=== PATIENT | male | born 1945 | race Caucasian/White ===

== ENCOUNTER → 2020-06-13 09:55 | Outpatient (BNVA) | payer MEDICARE, SELFPAY | PROVIDERS: PCP Internal Medicine Geriatric Medicine; Referring Provider Internal Medicine Geriatric Medicine; Visit Provider Internal Medicine Endocrinology, Diabetes & Metabolism | DX: E05.20 Thyrotoxicosis with toxic multinodular goiter without thyrotoxic crisis or storm (principal); Z79.899 Other long term (current) drug therapy | CPT/HCPCS: 99214 ==

== ENCOUNTER 2020-06-15 09:09 | Outpatient (RCR) | payer MEDICARE, SELFPAY | END 2020-08-18 08:10 | disposition home or self-care (01) | LOC: HO.WCC 09:09 | PROVIDERS: PCP Internal Medicine Geriatric Medicine; Visit Provider Surgery | DX: E11.622 Type 2 diabetes mellitus with other skin ulcer (principal); L97.822 Non-pressure chronic ulcer of other part of left lower leg with fat layer exposed; E11.51 Type 2 diabetes mellitus with diabetic peripheral angiopathy without gangrene; Z79.84 Long term (current) use of oral hypoglycemic drugs | CPT/HCPCS: 11042; 29581; 99212 ==

== ENCOUNTER 2020-06-16 09:21 | Outpatient (REF) | payer MEDICARE, SELFPAY ==
[2020-06-16 10:44] LABS: Thyroid Stimulating Hormone 0.34 mIU/mL (0.32-4.0)
[2020-06-16 11:53] LABS: Free T4 (Free Thyroxine) 1.09 ng/dL (0.71-1.85)
[2020-06-17 07:00] LABS: Triiodothyronine T3 Total 105 ng/dL (76-181)
== END 2020-06-16 09:22 | disposition home or self-care (01) ==
LOC: HO.LAB 09:21
PROVIDERS: PCP Internal Medicine Geriatric Medicine; Visit Provider Internal Medicine Endocrinology, Diabetes & Metabolism
DX: E05.00 Thyrotoxicosis with diffuse goiter without thyrotoxic crisis or storm (principal)
CPT/HCPCS: 84439; 84443; 84480

== ENCOUNTER 2020-08-31 09:48 | Outpatient (REF) | payer MEDICARE, SELFPAY ==
--- NOTE | 2020-08-31 | US_ITS ---
EXAMINATION: US NON-INVASIVE ASSESSMENT OF THE ARTERIES OF BOTH LOWER EXTREMITIES CLINICAL INFORMATION: PVD. COMPARISON: Arterial duplex 04/04/2020. TECHNIQUE: Segmental ankle pulse volume recording, pressure measurement at the ankle and ankle brachial indices were obtained of the lower extremity arterial system bilaterally. In addition, bilateral lower extremity duplex ultrasound was performed with velocity measurements and waveform analysis in the common femoral arteries, profunda femoris arteries, proximal mid and distal superficial femoral arteries, popliteal arteries and tibial vessels. This study was performed at rest only. FINDINGS: Brachial pressure is 107. a) AT REST: 1. The ankle-brachial indices are: Right 1.18 (previously 1.26) and left 0.91 (previously 0.78). >0.97-1.25 = normal - no significant arterial disease. 0.75-0.96 = mild peripheral arterial disease. 0.5-0.74 = moderate peripheral arterial disease. <0.50 = severe peripheral arterial disease. 2. Segmental pressure at ankle: 126 on the right and 97 on the left. 3. PVR waveform at ankle: Mildly blunted right, minimally blunted left. 4. Duplex exam. Velocities in cm/sec and phasicity as well as the presence of plaque are reported below. RIGHT LEG: Moderate atherosclerotic plaque present, most in the SFA. Multiphasic flow noted throughout with the exception of the popliteal and BRAKE TESTER where flow is monophasic. Common Femoral: 79. Profunda Femoris: 91. Proximal SFA: 69. Mid SFA: 65. Distal SFA: 86. Popliteal: 51 to 25. Posterior Tibial: 61. LEFT LEG: Moderate atherosclerotic plaque present. Multiphasic flow throughout with the exception of the distal SFA, popliteal and posterior tibial were flow is monophasic. Common Femoral: 112. Profunda Femoris: 83. Proximal SFA: 75. Mid SFA: 83, a stent is present in the [id number] SFA which is patent. Distal SFA: 90. Popliteal: 82. Posterior Tibial: 53. US/US arterial duplex LE BI IMPRESSION: Right: Normal right sided MARILU with disease in the SFA and tibial vessels. Left: MARILU has improved since the prior exam and now is consistent with only mild peripheral vascular disease. An FSA stent has been placed in the interim and is widely patent.
--- NOTE | 2020-08-31 | US_ITS ---
EXAMINATION: US NON-INVASIVE ASSESSMENT OF THE ARTERIES OF BOTH LOWER EXTREMITIES CLINICAL INFORMATION: PVD. COMPARISON: Arterial duplex 04/04/2020. TECHNIQUE: Segmental ankle pulse volume recording, pressure measurement at the ankle and ankle brachial indices were obtained of the lower extremity arterial system bilaterally. In addition, bilateral lower extremity duplex ultrasound was performed with velocity measurements and waveform analysis in the common femoral arteries, profunda femoris arteries, proximal mid and distal superficial femoral arteries, popliteal arteries and tibial vessels. This study was performed at rest only. FINDINGS: Brachial pressure is 107. a) AT REST: 1. The ankle-brachial indices are: Right 1.18 (previously 1.26) and left 0.91 (previously 0.78). >0.97-1.25 = normal - no significant arterial disease. 0.75-0.96 = mild peripheral arterial disease. 0.5-0.74 = moderate peripheral arterial disease. <0.50 = severe peripheral arterial disease. 2. Segmental pressure at ankle: 126 on the right and 97 on the left. 3. PVR waveform at ankle: Mildly blunted right, minimally blunted left. 4. Duplex exam. Velocities in cm/sec and phasicity as well as the presence of plaque are reported below. RIGHT LEG: Moderate atherosclerotic plaque present, most in the SFA. Multiphasic flow noted throughout with the exception of the popliteal and LEAD MASON TENDER where flow is monophasic. Common Femoral: 79. Profunda Femoris: 91. Proximal SFA: 69. Mid SFA: 65. Distal SFA: 86. Popliteal: 51 to 25. Posterior Tibial: 61. LEFT LEG: Moderate atherosclerotic plaque present. Multiphasic flow throughout with the exception of the distal SFA, popliteal and posterior tibial were flow is monophasic. Common Femoral: 112. Profunda Femoris: 83. Proximal SFA: 75. Mid SFA: 83, a stent is present in the [id number] SFA which is patent. Distal SFA: 90. Popliteal: 82. Posterior Tibial: 53. US/US MARILU complete IMPRESSION: Right: Normal right sided MARILU with disease in the SFA and tibial vessels. Left: MARILU has improved since the prior exam and now is consistent with only mild peripheral vascular disease. An FSA stent has been placed in the interim and is widely patent.
--- NOTE | 2020-08-31 09:53 | US_ITS ---
EXAMINATION: US THYROID CLINICAL INFORMATION: Multinodular goiter COMPARISON: Ultrasound thyroid soft tissue 03/14/2020 TECHNIQUE: Linear transducer costa-scale and color Doppler examination with attention to the region of the thyroid. FINDINGS: SIZE: Measurements of the thyroid lobes and nodules are given in sagittal, anteroposterior and transverse dimensions respectively. Right Thyroid Lobe: 4.7 x 2.4 x 1.7 cm, volume 9.8 mL. Previously 4.8 x 2.1 x 1.5 cm, volume 7.9 mL. Parenchyma: The gland echotexture is homogeneous. Thyroid vascularity is normal. Left Thyroid Lobe: 3.9 x 2.2 x 1.5 cm, volume 6.5 mL. Previously 3.8 x 2.0 x 1.8 cm, volume 7.2 mL. Parenchyma: The gland echotexture is homogeneous. Thyroid vascularity is normal. Isthmus: 0.3 cm in maximum AP dimension. Previously 0.2 cm. RIGHT THYROID LOBE: There are 2 nodules seen. 1. Location: Lower. Size: 0.8 x 0.8 x 0.7 cm. Previous: 0.9 x 0.9 x 0.7 cm. Nodule characteristics: Hypoechoic, smoothly marginated with no intranodular flow. 2. Location: Upper pole. Size: 0.7 x 0.6 x 0.5 cm. Not seen. Nodule characteristics: Hypoechoic, heterogenous, smoothly marginated with no intranodular flow. ISTHMUS: No nodules. LEFT THYROID LOBE: There is 1 nodule seen. 1. Location: Mid pole. Size: 0.4 x 0.3 x 0.4 cm. Previous: 0.3 x 0.2 x 0.4 cm. Nodule characteristics: Hypoechoic, smoothly marginated with no intranodular flow. NODES: No lymphadenopathy is seen in the tissue surrounding the thyroid gland. US/US thyroid IMPRESSION: Bilateral non-suspicious subcentimeter thyroid nodules.
== END 2020-08-31 09:49 | disposition home or self-care (01) ==
LOC: HO.US 09:48
PROVIDERS: PCP Internal Medicine Geriatric Medicine; Visit Provider Internal Medicine Endocrinology, Diabetes & Metabolism
DX: E04.2 Nontoxic multinodular goiter (principal); E05.00 Thyrotoxicosis with diffuse goiter without thyrotoxic crisis or storm; I73.9 Peripheral vascular disease, unspecified
CPT/HCPCS: 76536; 93923; 93925

== ENCOUNTER 2020-10-28 11:37 | Outpatient (RCR) | payer MEDICARE, SELFPAY | END 2021-01-25 09:10 | disposition home or self-care (01) | LOC: HO.WCC 11:37 | PROVIDERS: Visit Provider Physician Assistant | DX: E11.628 Type 2 diabetes mellitus with other skin complications (principal); S81.802D Unspecified open wound, left lower leg, subsequent encounter; I87.392 Chronic venous hypertension (idiopathic) with other complications of left lower extremity; E11.65 Type 2 diabetes mellitus with hyperglycemia; I87.2 Venous insufficiency (chronic) (peripheral) | CPT/HCPCS: 11042; 15271; 99213; Q4186 ==

== ENCOUNTER 2020-12-02 11:12 | Outpatient (REF) | payer MEDICARE, SELFPAY ==
[2020-12-02 12:12] LABS: MANUAL DIFF FLAG NO
[2020-12-02 12:18] LABS: Basophils Percent Auto 0.4 % (0-2); Eosinophils Absolute Auto 0.2 X10*3/uL (0.0-0.4); Eosinophils Percent Auto 2.6 % (0-4); Hematocrit 40.5 % (42-52); Hemoglobin 11.9 g/dl (14.0-18.0); Imm Gran Abs Auto 0.02 X10*3/uL (0.00-0.03); Imm Gran Pct Auto 0.3 % (0.0-0.4); Lymphocytes Absolute Auto 1.5 X10*3/uL (1.2-4.9); Lymphocytes Percent Auto 19.8 % (20-40); Mean Corpuscular HGB Conc 29.4 g/dl (31.0-36.0); Mean Corpuscular Hemoglobin 24.5 pg (27.0-33.0); Mean Corpuscular Volume 83.5 fL (80-98); Mean Platelet Volume 10.4 fL (9.4-12.4); Monocytes Absolute Auto 0.7 X10*3/uL (0.1-1.2); Monocytes Percent Auto 9.3 % (2-11); Neutrophils Absolute Auto 5.2 X10*3/uL (2.0-8.3); Neutrophils Percent Auto 67.6 % (45-73); Platelet Count 203 X10*3/uL (160-400); Red Blood Count 4.85 X10*6/uL (4.60-5.80); Red Cell Distribution Width 20.1 % (11.0-16.0); White Blood Count 7.7 X10*3/uL (4.8-10.8)
[2020-12-02 12:53] LABS: Estimated Average Glucose 214 mg/dL; Hemoglobin A1c % 9.1 %
[2020-12-02 13:29] LABS: Anion Gap 14 (12-20); Blood Urea Nitrogen 30 mg/dL (9-16); C Reactive Protein 0.35 mg/dL (< or = 0.50); Calcium 9.1 mg/dL (8.4-10.2); Carbon Dioxide 28 mmol/L (22-29); Chloride 102 mmol/L (96-108); Estimated Glomerular Filt Rate > 60; Glucose Random 134 mg/dL (60-115); Potassium 4.4 mmol/L (3.3-5.1); Sodium 140 mmol/L (135-145)
[2020-12-02 13:33] LABS: Erythrocyte Sedimentation Rate 25 MM/HR (0-15)
== END 2020-12-02 11:13 | disposition home or self-care (01) ==
LOC: HO.LAB 11:12
PROVIDERS: PCP Internal Medicine Geriatric Medicine; Visit Provider Physician Assistant
DX: I87.319 Chronic venous hypertension (idiopathic) with ulcer of unspecified lower extremity (principal)
CPT/HCPCS: 36415; 80048; 83036; 84134; 85025; 85652; 86140

== ENCOUNTER → 2020-12-19 09:31 | Outpatient (BNVA) | payer MEDICARE, SELFPAY | PROVIDERS: PCP Internal Medicine Geriatric Medicine; Visit Provider Internal Medicine Endocrinology, Diabetes & Metabolism | DX: E05.00 Thyrotoxicosis with diffuse goiter without thyrotoxic crisis or storm (principal); E04.2 Nontoxic multinodular goiter | CPT/HCPCS: 99212 ==

== ENCOUNTER 2020-12-19 10:21 | Outpatient (REF) | payer MEDICARE, SELFPAY ==
[2020-12-19 15:10] LABS: Free T4 (Free Thyroxine) 0.94 ng/dL (0.71-1.85); Thyroid Stimulating Hormone 0.27 uIU/mL (0.32-4.0)
[2020-12-20 09:11] LABS: Triiodothyronine T3 Total 100 ng/dL (76-181)
== END 2020-12-19 10:22 | disposition home or self-care (01) ==
LOC: HO.10HDL 10:21
PROVIDERS: Visit Provider Internal Medicine Endocrinology, Diabetes & Metabolism
DX: E05.00 Thyrotoxicosis with diffuse goiter without thyrotoxic crisis or storm (principal)
CPT/HCPCS: 36415; 84439; 84443; 84480

== ENCOUNTER 2021-01-19 09:57 | Outpatient (REF) | payer MEDICARE, SELFPAY ==
[2021-01-19 14:41] LABS: Free T4 (Free Thyroxine) 0.84 ng/dL (0.71-1.85); Thyroid Stimulating Hormone 0.68 uIU/mL (0.32-4.0)
[2021-01-20 06:16] LABS: Triiodothyronine T3 Total 103 ng/dL (76-181)
== END 2021-01-19 09:58 | disposition home or self-care (01) ==
LOC: HO.10HDL 09:57
PROVIDERS: Visit Provider Internal Medicine Endocrinology, Diabetes & Metabolism
DX: E05.00 Thyrotoxicosis with diffuse goiter without thyrotoxic crisis or storm (principal)
CPT/HCPCS: 36415; 84439; 84443; 84480

== ENCOUNTER 2021-05-31 08:57 | Outpatient (REF) | payer MEDICARE, SELFPAY ==
[2021-05-31 11:06] LABS: Free T4 (Free Thyroxine) 0.87 ng/dL (0.71-1.85); Thyroid Stimulating Hormone 1.03 uIU/mL (0.32-4.0); Vitamin D 25-OH Total 35.1 ng/mL (>30)
[2021-06-02 21:21] LABS: Triiodothyronine T3 Total 120 ng/dL (76-181)
[2021-06-05 21:22] LABS: Thyrotropin Receptor Antibody 1.05 IU/L (<=2.00)
[2021-06-07 15:36] LABS: Thyroid Stimulating Immunoglob 237 % baseline (<140)
== END 2021-05-31 08:58 | disposition home or self-care (01) ==
LOC: HO.10HDL 08:57
PROVIDERS: Absent Provider Internal Medicine; Visit Provider Internal Medicine Endocrinology, Diabetes & Metabolism
DX: E55.9 Vitamin D deficiency, unspecified (principal); E05.00 Thyrotoxicosis with diffuse goiter without thyrotoxic crisis or storm
CPT/HCPCS: 36415; 82306; 83520; 84439; 84443; 84445; 84480

== ENCOUNTER 2021-10-25 12:47 | Outpatient (REF) | payer MEDICARE, SELFPAY ==
[2021-10-25 14:42] LABS: MANUAL DIFF FLAG NO
[2021-10-25 14:45] LABS: Basophils Percent Auto 0.4 % (0-2); Eosinophils Absolute Auto 0.2 X10*3/uL (0.0-0.4); Eosinophils Percent Auto 2.6 % (0-4); Hematocrit 41.8 % (42.0-52.0); Hemoglobin 13.2 g/dl (14.0-18.0); Imm Gran Abs Auto 0.02 X10*3/uL (0.00-0.03); Imm Gran Pct Auto 0.2 % (0.0-0.4); Lymphocytes Absolute Auto 1.1 X10*3/uL (1.2-4.9); Lymphocytes Percent Auto 13.2 % (20-40); Mean Corpuscular HGB Conc 31.6 g/dl (31.0-36.0); Mean Corpuscular Hemoglobin 28.3 pg (27.0-33.0); Mean Corpuscular Volume 89.7 fL (80.0-98.0); Mean Platelet Volume 10.7 fL (9.4-12.4); Monocytes Absolute Auto 0.9 X10*3/uL (0.1-1.2); Monocytes Percent Auto 10.9 % (2-11); Neutrophils Percent Auto 72.7 % (45-73); Platelet Count 185 X10*3/uL (160-400); Red Blood Count 4.66 X10*6/uL (4.60-5.80); Red Cell Distribution Width 15.3 % (11.0-16.0); White Blood Count 8.2 X10*3/uL (4.8-10.8)
[2021-10-25 15:10] LABS: Alanine Aminotransferase 16 U/L (0-40); Albumin Level 3.1 g/dL (3.5-5.0); Alkaline Phosphatase 76 U/L (39-117); Aspartate Amino Transferase 23 U/L (5-37); Bilirubin Direct 0.3 mg/dL (0.0-0.5); Bilirubin Total 0.6 mg/dL (0.0-1.0); Total Protein 6.1 g/dL (6.5-8.0)
[2021-10-25 15:33] LABS: Free T4 (Free Thyroxine) 0.75 ng/dL (0.71-1.85); Thyroid Stimulating Hormone 2.72 uIU/mL (0.32-4.0)
[2021-10-27 01:31] LABS: Triiodothyronine T3 Free 3.3 pg/mL (2.3-4.2)
== END 2021-10-25 12:48 | disposition home or self-care (01) ==
LOC: HO.LAB 12:47
PROVIDERS: PCP Internal Medicine Geriatric Medicine; Visit Provider Internal Medicine Endocrinology, Diabetes & Metabolism
DX: E05.00 Thyrotoxicosis with diffuse goiter without thyrotoxic crisis or storm (principal); E04.2 Nontoxic multinodular goiter
CPT/HCPCS: 36415; 80076; 84439; 84443; 84481; 85025; 99212

== ENCOUNTER 2021-11-29 16:43 | Inpatient (IN) | payer OTHER, SELFPAY ==
--- NOTE | ~2021-11-29 | XR_ITS ---
EXAMINATION: XR CHEST CLINICAL INFORMATION: Edema. COMPARISON: Chest x-ray 05/03/2016 TECHNIQUE: Frontal portable view of the chest was obtained. 5:51 PM FINDINGS: Status post median sternotomy. Heart size is enlarged. Status post TAVR Pacemaker lead in right ventricle. Mild central pulmonary vascular congestion. No overt pulmonary edema. Small bilateral pleural effusions. XR/XR chest 1V IMPRESSION: Mild pulmonary vascular congestion with small bilateral pleural effusions. No overt pulmonary edema.
--- NOTE | ~2021-11-29 | US_ITS ---
EXAMINATION: US SCROTUM CLINICAL INFORMATION: Testicular swelling. COMPARISON: None TECHNIQUE: A sonogram of the scrotum was performed assessing costa-scale appearance and color Doppler flow. Spectral Doppler analysis of the arterial and venous flow were performed in the testes bilaterally. FINDINGS: RIGHT: Right testicle measures 3.4 x 2.6 x 2.8 cm, volume 13 mL. No focal testicular parenchymal lesions are visualized. Spectral Doppler analysis of the arterial and venous flow is normal in the right testis. Right epididymal head is normal in size. There is a 0.8 cm epididymal head cyst. No right hydrocele or varicocele is seen. Right epididymal Doppler flow is normal. LEFT: There is extensive soft tissue swelling in the left inguinal and scrotal region which limits evaluation of the testicle and epididymis. There is suggestion of decreased flow to the left testicle when compared to the right side, although this could be related with limitations of technique in the setting of marked soft tissue swelling. The left testicle measures 2.9 x 3.6 x 3.0 cm, volume 16 mL. No focal testicular parenchymal lesions are visualized. The left epididymis was not well identified due to limitations from soft tissue swelling. No left hydrocele or varicocele is seen. US/US scrotum doppler IMPRESSION: 1. Significant soft tissue thickening in the left inguinal and left scrotal regions. Correlate clinically for signs of infection (cellulitis/phlegmonous changes). 2. Unfortunately, the degree of soft tissue swelling limits assessment of the left epididymis which is not well visualized. Additionally, there is questionable decreased flow to the left testicle, although this is likely artifactual and related with the degree of soft tissue swelling. Recommend a short-term examination. 3. Normal right testicle and right epididymis.
--- NOTE | ~2021-11-29 | CT_ITS ---
EXAMINATION: CT ABDOMEN AND PELVIS WITHOUT CONTRAST CLINICAL INFORMATION: Pain COMPARISON: None TECHNIQUE: Multidetector volumetric imaging was performed from the superior aspect of the liver through the pubic symphysis. Sagittal and coronal reformatted images were obtained on the technologist's workstation. This CT examination was performed using dose optimization techniques as appropriate, variously including the following: *Automated exposure control *Adjustment of mA and/or kV according to patient size (this includes techniques or standardized protocols for targeted exams where dose is matched to indication/reason for exam; i.e. extremities or head) *Use of iterative reconstruction technique DLP: 705 mGy-cm FINDINGS: LUNG BASES: Cardiomegaly. Status post TAVR. AICD lead terminates in the right ventricle. Calcific atherosclerosis in the coronary arteries. Moderate-sized bilateral pleural effusions. Dependent atelectasis. Motion artifact in the lung bases. LIVER, GALLBLADDER, AND BILIARY TREE: The liver is normal in size, shape, and attenuation. No focal hepatic lesion or biliary ductal dilatation is present. Cholelithiasis. Gallbladder is otherwise normal in appearance. Assessment is slightly limited by respiratory motion. PANCREAS: Unremarkable. SPLEEN: Unremarkable. ADRENAL GLANDS: Unremarkable. KIDNEYS AND URETERS: 2 hypoattenuating right renal cystic lesions are noted, measuring up to 1.5 cm in diameter and 8 Hounsfield units. These statistically are favored to correspond to simple cysts and are of doubtful clinical significance. No recommend imaging follow-up. Kidneys are normal in size. Multiple calcifications in the renal sinuses are likely vascular in nature. No hydronephrosis. Proximal ureters are normal. Trace perinephric fat stranding. BLADDER: Navarro catheter terminates within the partially filled bladder. Mild bladder wall thickening is likely related to the presence of a Navarro catheter. GASTROINTESTINAL TRACT: Mild gaseous distention of the stomach. Small bowel and colon are normal in caliber. No bowel wall thickening or surrounding inflammatory fat stranding. Appendix is normal. No intraperitoneal free air or free fluid. ABDOMINAL WALL: Tiny fat-containing umbilical hernia. No bowel involvement. Mild anasarca. LYMPH NODES: Normal. VASCULAR: Atherosclerotic calcifications are present in the abdominal aorta and iliac arteries. No aneurysmal dilatation. PELVIC VISCERA: Prostate gland measures 5.2 cm in transverse dimension. OSSEOUS STRUCTURES: Mild to moderate multilevel degenerative disc disease. Grade 1 anterolisthesis of L4 on L5 with marked facet arthropathy. No acute fracture. 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 CT/CT abdomen pelvis wo con IMPRESSION: 1. Mild gaseous distention of the stomach. No acute findings are identified in this region. 2. Cardiomegaly with moderate-sized bilateral pleural effusions and associated dependent atelectasis. 3. Cholelithiasis without CT findings of acute cholecystitis 4. Prostatomegaly. Fleischner guidelines were followed.
[2021-11-29 16:52] VITALS: BP 110/63; PULSE 62; O2SAT 98
[2021-11-29 17:07] VITALS: BP 115/50; PULSE 69; RESP 16; TEMP 36.6; O2SAT 95; BMI 34.7
--- NOTE | 2021-11-29 17:20 | ED_ITS ---
HPI - General Adult General Chief complaint: Extremity Problem Stated complaint: edema Time Seen by Provider: 11/29/21 19:10 Source: patient and EMS Mode of arrival: EMS Limitations: language barrier History of Present Illness HPI narrative: 76-year-old male presents via EMS from his primary care's office for bilateral lower extremity swelling and scrotal edema with rash. Onset (ago): week(s) Location: genitals, left, right and lower extremity Radiation: non-radiation Severity: moderate Severity scale (1-10): 6 Quality: burning and aching Pain Consistency: constant Relieving factors: none Exacerbating factors: movement Associated symptoms: denies other symptoms Treatments prior to arrival: none Related Data Home Medications Medication Instructions Recorded Confirmed acetaminophen 650 mg 1,300 mg PO Q8H PRN 06/10/20 11/29/21 tablet,extended release apixaban 5 mg tablet 5 mg PO BID 06/10/20 11/29/21 bisoprolol fumarate 5 mg tablet 5 mg PO BEDTIME 06/10/20 11/29/21 blood sugar diagnostic #10 ea 06/10/20 12/19/20 blood-glucose meter #1 ea 06/10/20 12/19/20 docusate sodium 100 mg capsule 100 mg PO BID 06/10/20 11/29/21 isosorbide mononitrate 60 mg 60 mg PO QAM 06/10/20 11/29/21 tablet,extended release 24 hr lancets 33 gauge #100 ea 06/10/20 12/19/20 lisinopril 2.5 mg tablet 2.5 mg PO QAM 06/10/20 11/29/21 metformin 500 mg tablet,extended 500 mg PO DAILY@1700 06/10/20 11/29/21 release 24 hr pen needle, diabetic 32 gauge x #50 ea 06/10/20 12/19/20 rosuvastatin 40 mg tablet 40 mg PO BEDTIME 06/10/20 11/29/21 clopidogrel 75 mg tablet 75 mg PO DAILY 06/13/20 11/29/21 insulin glargine 100 unit/mL (3 20 unit SUBCUT BEDTIME ml 12/19/20 11/29/21 mL) subcutaneous pen torsemide 20 mg tablet 20 mg PO DAILY@1200 10/25/21 11/29/21 torsemide 20 mg tablet 40 mg PO DAILY 11/29/21 11/29/21 Previous Rx's Medication Instructions Recorded methimazole 5 mg tablet 2.5 mg PO DAILY 30 Days #15 tab 01/24/21 cholecalciferol (vitamin D3) 25 25 mcg PO QAM #90 tab 11/22/21 mcg (1,000 unit) tablet Allergies Allergy/AdvReac Type Severity Reaction Status Date / Time No Known Allergies Allergy Mild N/A Verified 11/29/21 17:09 Review of Systems Review of Systems: Constitutional: No Fever, No Chills ENT/Mouth: No Ear Pain, No Hoarseness, No sore throat Eyes: No Eye Pain, No Swelling, No Redness, No Foreign Body Cardiovascular: No Chest Pain, No SOB, bilateral lower extremity edema Respiratory: No Cough, No Dyspnea Gastrointestinal: No Nausea, No Vomiting, No Diarrhea, No abdominal Pain Genitourinary: Penile and scrotal swelling, No Dysuria, No Hematuria Musculoskeletal: No joint pain, No Myalgias, No Joint Swelling Skin: No Skin rash to lower abdomen penis and testicles, No rash Neuro: No Weakness, No Numbness, No Paresthesias, No Loss of Consciousness, No Dizziness, No Headache Psych: No Anxiety/Panic, No Depression Heme/Lymph: no easy bruising, no Lymphadenopathy Endocrine: No Polyuria, No Polydipsia Yes all other systems are reviewed and are negative ON LICENSE OF [facility] Past Medical History Attestation statement: The following information was validated with the patient. Source: old records reviewed Medical History Graves disease Multinodular goiter Vitamin D deficiency Surgical History Hx of coronary artery bypass graft Family History Family History Father Cancer Mother No problems noted. Social History Social History Alcohol intake: current Alcohol intake frequency: does not drink Patient Tobacco Use Status: Never used Tobacco Use of substances other than those prescribed or required for medical reasons: No Advance Directives: No Advance Directives Information Provided: No Physical Exam ED Vital Signs: Vital Signs - 24 hr 11/29/21 17:07 11/29/21 18:32 Temperature 97.8 F Pulse Rate 69 59 Respiratory Rate 16 18 Blood Pressure 115/50 L 111/53 L Pulse Oximetry 95 95 BMI result Body Mass Index 34.7 Appearance: Alert. Oriented X3. Mild distress. Eyes: Pupils equal, round and reactive to light. No nystagmus. Sclera nonicteric. ENT: Pharynx normal. No angioedema. Uvula midline. Neck: Normal inspection. Neck supple. CVS: Normal heart rate and rhythm. Pulses normal. Respiratory: No respiratory distress. Breath sounds normal. Abdomen: Soft and nontender. Obese. Swelling and cellulitis to the pannus. Genitourinary: Significant edema to the penis and bilateral scrotum with rash, excoriation. Skin: Skin warm and dry. Normal skin color. Normal skin turgor. Extremities: +3 pitting lower edema. Cellulitis to bilateral lower extremities. Chronic wound to left lower extremity. Neuro: No motor deficit. No sensory deficit. Cranial nerves 2-12 intact. Course Course Course Narrative: 76-year-old male presents via EMS from his primary care's office for increased edema with scrotal rash and swelling. Patient does have a history of CHF, does take torsemide 20 mg daily and is an insulin-dependent diabetic. Has a home care nurse that cares for his left lower extremity wound that has been chronic for over a year. He does have some cellulitis across the abdomen, scrotal excoriation and significant swelling to the penis and scrotum. Will order labs, BNP, chest x-ray and scrotal ultrasound. Will give 40 mg IV Lasix at this time. Will give ceftriaxone for cellulitis. Low likelihood of sepsis at this time. 18:55 BNP elevated at 807. 19:15 this [employer] placed 18 [place]. 20:00 discussion with hospitalist regarding plan of care to admit for CHF exace rbation, cellulitis and epididymitis. Consultations Consultation #1: Moni Time: 20:00 Procedures Catheter Insertion (Urinary) Date of insertion: 11/29/21 Reason for placing: Yes Reason for placing indwelling catheter: Measure accurate output Bladder scan/ultrasound used before catheterization: No Antiseptic solution prep: Povidone-Iodine Topical anesthesia used: No Catheter type/location: Urethral Size ([place]): 18 Catheter balloon size (mL): 10 Results: successfully catheterized-immediate flow Procedure performed: without complications Medical Decision Making Differential Diagnosis Differential Diagnosis: CHF, cellulitis, UTI Medical Records Medical records reviewed: Yes I reviewed the patient's medical records. Lab Data Lab results reviewed: Yes I reviewed the patient's lab results. Result diagrams: 11/29/21 18:08 11/29/21 18:08 Labs: Lab Results 11/29/21 11/29/21 11/29/21 Range/Units 18:08 18:08 18:08 WBC 8.4 (4.8-10.8) X10*3/uL RBC 5.07 (4.60-5.80) X10*6/uL Hgb 13.9 L (14.0-18.0) g/dl Hct 44.8 (42.0-52.0) % MCV 88.4 (80.0-98.0) fL MCH 27.4 (27.0-33.0) pg MCHC 31.0 (31.0-36.0) g/dl RDW 16.0 (11.0-16.0) % Plt Count 205 (160-400) X10*3/uL MPV 10.9 (9.4-12.4) fL Immature Gran % (Auto) 0.2 (0.0-0.4) % Neut % (Auto) 78.9 H (45-73) % Lymph % (Auto) 9.9 L (20-40) % Warrick % (Auto) 9.3 (2-11) % Eos % (Auto) 1.3 (0-4) % Baso % (Auto) 0.4 (0-2) % Lymph # (Auto) 0.8 L (1.2-4.9) X10*3/uL Warrick # (Auto) 0.8 (0.1-1.2) X10*3/uL Eos # (Auto) 0.1 (0.0-0.4) X10*3/uL Baso # (Auto) 0.0 (0.0-0.2) X10*3/uL Abs Immat Gran (auto) 0.02 (0.00-0.03) X10*3/uL Absolute Neuts (auto) 6.6 (2.0-8.3) x10*3/uL Absolute Nucleated RBC 0.000 (0.0-0.012) X10*3/uL Nucleated RBC % (auto) 0.0 (0.0-0.2) /100WBC PT (9.9-13.0) SEC INR (0.9-1.1) APTT (24.1-38.0) SEC Sodium 138 (135-145) mmol/L Potassium 3.9 (3.3-5.1) mmol/L Chloride 101 (96-108) mmol/L Carbon Dioxide 31 H (22-29) mmol/L Anion Gap 10 L (12-20) BUN 19 H (9-16) mg/dL Creatinine 0.75 (0.5-1.4) mg/dL Estim Creat Clear Calc 87.1 Estimated GFR > 60 Random Glucose 149 H (60-115) mg/dL Lactic Acid (0.5-2.0) mmol/L Calcium 9.2 (8.4-10.2) mg/dL Magnesium 2.0 (1.6-2.6) mg/dL Total Bilirubin 0.8 (0.0-1.0) mg/dL Direct Bilirubin 0.3 (0.0-0.5) mg/dL AST 31 (5-37) U/L ALT 24 (0-40) U/L Alkaline Phosphatase 99 D (39-117) U/L Troponin I High Sens (<3.5-35.0) ng/L B-Natriuretic Peptide (<100) pg/mL Total Protein 6.3 L (6.5-8.0) g/dL Albumin 3.2 L (3.5-5.0) g/dL Lipase 53 (8-78) U/L Urine Color Urine Appearance Urine pH (5.0-8.0) Ur Specific [place] (1.005-1.025) Urine Protein (NEG-TRACE) MG/DL Urine Glucose (UA) (NEG) MG/DL Urine Ketones (NEG) MG/DL Urine Blood (NEG) Urine Nitrite (NEG) Ur Leukocyte Esterase (NEG) Urine RBC (0) /HPF Urine WBC (0-4) /HPF Ur Squamous Epith Cells /LPF Urine Bacteria /LPF COVID-19 (FLAVIO) Negative (Negative) COVID-19 Clin Com See Note 03/23/22 03/23/22 03/23/22 Range/Units 18:08 18:08 18:09 WBC (4.8-10.8) X10*3/uL RBC (4.60-5.80) X10*6/uL Hgb (14.0-18.0) g/dl Hct (42.0-52.0) % MCV (80.0-98.0) fL MCH (27.0-33.0) pg MCHC (31.0-36.0) g/dl RDW (11.0-16.0) % Plt Count (160-400) X10*3/uL MPV (9.4-12.4) fL Immature Gran % (Auto) (0.0-0.4) % Neut % (Auto) (45-73) % Lymph % (Auto) (20-40) % Warrick % (Auto) (2-11) % Eos % (Auto) (0-4) % Baso % (Auto) (0-2) % Lymph # (Auto) (1.2-4.9) X10*3/uL Warrick # (Auto) (0.1-1.2) X10*3/uL Eos # (Auto) (0.0-0.4) X10*3/uL Baso # (Auto) (0.0-0.2) X10*3/uL Abs Immat Gran (auto) (0.00-0.03) X10*3/uL Absolute Neuts (auto) (2.0-8.3) x10*3/uL Absolute Nucleated RBC (0.0-0.012) X10*3/uL Nucleated RBC % (auto) (0.0-0.2) /100WBC PT 17.4 H (9.9-13.0) SEC INR 1.5 H (0.9-1.1) APTT 42.1 H (24.1-38.0) SEC Sodium (135-145) mmol/L Potassium (3.3-5.1) mmol/L Chloride (96-108) mmol/L Carbon Dioxide (22-29) mmol/L Anion Gap (12-20) BUN (9-16) mg/dL Creatinine (0.5-1.4) mg/dL Estim Creat Clear Calc Estimated GFR Random Glucose (60-115) mg/dL Lactic Acid (0.5-2.0) mmol/L Calcium (8.4-10.2) mg/dL Magnesium (1.6-2.6) mg/dL Total Bilirubin (0.0-1.0) mg/dL Direct Bilirubin (0.0-0.5) mg/dL AST (5-37) U/L ALT (0-40) U/L Alkaline Phosphatase (39-117) U/L Troponin I High Sens 29.7 (<3.5-35.0) ng/L B-Natriuretic Peptide 807 H (<100) pg/mL Total Protein (6.5-8.0) g/dL Albumin (3.5-5.0) g/dL Lipase (8-78) U/L Urine Color Urine Appearance Urine pH (5.0-8.0) Ur Specific [place] (1.005-1.025) Urine Protein (NEG-TRACE) MG/DL Urine Glucose (UA) (NEG) MG/DL Urine Ketones (NEG) MG/DL Urine Blood (NEG) Urine Nitrite (NEG) Ur Leukocyte Esterase (NEG) Urine RBC (0) /HPF Urine WBC (0-4) /HPF Ur Squamous Epith Cells /LPF Urine Bacteria /LPF COVID-19 (FLAVIO) (Negative) COVID-19 Clin Com 11/29/21 11/29/21 Range/Units 18:09 19:34 WBC (4.8-10.8) X10*3/uL RBC (4.60-5.80) X10*6/uL Hgb (14.0-18.0) g/dl Hct (42.0-52.0) % MCV (80.0-98.0) fL MCH (27.0-33.0) pg MCHC (31.0-36.0) g/dl RDW (11.0-16.0) % Plt Count (160-400) X10*3/uL MPV (9.4-12.4) fL Immature Gran % (Auto) (0.0-0.4) % Neut % (Auto) (45-73) % Lymph % (Auto) (20-40) % Warrick % (Auto) (2-11) % Eos % (Auto) (0-4) % Baso % (Auto) (0-2) % Lymph # (Auto) (1.2-4.9) X10*3/uL Warrick # (Auto) (0.1-1.2) X10*3/uL Eos # (Auto) (0.0-0.4) X10*3/uL Baso # (Auto) (0.0-0.2) X10*3/uL Abs Immat Gran (auto) (0.00-0.03) X10*3/uL Absolute Neuts (auto) (2.0-8.3) x10*3/uL Absolute Nucleated RBC (0.0-0.012) X10*3/uL Nucleated RBC % (auto) (0.0-0.2) /100WBC PT (9.9-13.0) SEC INR (0.9-1.1) APTT (24.1-38.0) SEC Sodium (135-145) mmol/L Potassium (3.3-5.1) mmol/L Chloride (96-108) mmol/L Carbon Dioxide (22-29) mmol/L Anion Gap (12-20) BUN (9-16) mg/dL Creatinine (0.5-1.4) mg/dL Estim Creat Clear Calc Estimated GFR Random Glucose (60-115) mg/dL Lactic Acid 1.0 (0.5-2.0) mmol/L Calcium (8.4-10.2) mg/dL Magnesium (1.6-2.6) mg/dL Total Bilirubin (0.0-1.0) mg/dL Direct Bilirubin (0.0-0.5) mg/dL AST (5-37) U/L ALT (0-40) U/L Alkaline Phosphatase (39-117) U/L Troponin I High Sens (<3.5-35.0) ng/L B-Natriuretic Peptide (<100) pg/mL Total Protein (6.5-8.0) g/dL Albumin (3.5-5.0) g/dL Lipase (8-78) U/L Urine Color YELLOW Urine Appearance CLEAR Urine pH 6.0 (5.0-8.0) Ur Specific [place] 1.015 (1.005-1.025) Urine Protein NEG (NEG-TRACE) MG/DL Urine Glucose (UA) NEG (NEG) MG/DL Urine Ketones NEG (NEG) MG/DL Urine Blood 2+ H (NEG) Urine Nitrite NEG (NEG) Ur Leukocyte Esterase NEG (NEG) Urine RBC 15-29 H (0) /HPF Urine WBC 0 (0-4) /HPF Ur Squamous Epith Cells TRACE /LPF Urine Bacteria NONE /LPF COVID-19 (FLAVIO) (Negative) COVID-19 Clin Com Imaging Data Chest x-ray: Attestation: I personally reviewed and interpreted this imaging study as follows: Radiologist's impression: EXAMINATION: XR CHEST CLINICAL INFORMATION: Edema. COMPARISON: Chest x-ray 05/03/2016 TECHNIQUE: Frontal portable view of the chest was obtained. 5:51 PM FINDINGS: Status post median sternotomy. Heart size is enlarged. Status post TAVR Pacemaker lead in right ventricle. Mild central pulmonary vascular congestion. No overt pulmonary edema. Small bilateral pleural effusions. XR/XR chest 1V IMPRESSION: Mild pulmonary vascular congestion with small bilateral pleural effusions. No overt pulmonary edema. Scrotal ultrasound: Attestation: I personally reviewed and interpreted this imaging study as follows: Radiologist's impression: EXAMINATION: US SCROTUM CLINICAL INFORMATION: Testicular swelling. COMPARISON: None TECHNIQUE: A sonogram of the scrotum was performed assessing costa-scale appearance and color Doppler flow. Spectral Doppler analysis of the arterial and venous flow were performed in the testes bilaterally. FINDINGS: RIGHT: Right testicle measures 3.4 x 2.6 x 2.8 cm, volume 13 mL. No focal testicular parenchymal lesions are visualized. Spectral Doppler analysis of the arterial and venous flow is normal in the right testis. Right epididymal head is normal in size. There is a 0.8 cm epididymal head cyst. No right hydrocele or varicocele is seen. Right epididymal Doppler flow is normal. LEFT: There is extensive soft tissue swelling in the left inguinal and scrotal region which limits evaluation of the testicle and epididymis. There is suggestion of decreased flow to the left testicle when compared to the right side, although this could be related with limitations of technique in the setting of marked soft tissue swelling. The left testicle measures 2.9 x 3.6 x 3.0 cm, volume 16 mL. No focal testicular parenchymal lesions are visualized. The left epididymis was not well identified due to limitations from soft tissue swelling. No left hydrocele or varicocele is seen. US/US scrotum doppler IMPRESSION: 1. Significant soft tissue thickening in the left inguinal and left scrotal regions. Correlate clinically for signs of infection (cellulitis/phlegmonous changes). ? 2. Unfortunately, the degree of soft tissue swelling limits assessment of the left epididymis which is not well visualized. Additionally, there is questionable decreased flow to the left testicle, although this is likely artifactual and related with the degree of soft tissue swelling. Recommend a short-term examination. ? 3. Normal right testicle and right epididymis. ? ECG Data Attestation: I personally reviewed and interpreted this ECG as follows: Prior ECG tracings: available for review Interpretation: Vent. rate 70 BPM [place] interval 232 ms QRS duration 118 ms QT/QTc 456/492 ms P-R-T axes 72 -24 138 Sinus rhythm with 1st degree A-V block with occasional Premature ventricular complexes Minimal voltage criteria for LVH, may be normal variant ( [place] product ) Possible Lateral infarct (cited on or before 03-MAY-2016) Abnormal ECG When compared with ECG of 03-MAY-2016 11:11, [place] interval has increased Questionable change in initial forces of Anterolateral leads ST no longer depressed in Inferior leads ST now depressed in Anterior leads 29-NOV-2021 18:47:01 Discharge Plan Discharge Clinical Impression: Cellulitis, Acute exacerbation of CHF (congestive heart failure), Acute epididymitis Patient Disposition: Admitted As Inpatient
--- NOTE | 2021-11-29 17:21 | ECG_ITS ---
Test Reason : GENERAL MEDICAL Blood Pressure : / mmHG Vent. Rate : 070 BPM Atrial Rate : 070 BPM P-R Int : 232 ms QRS Dur : 118 ms QT Int : 456 ms P-R-T Axes : 072 -24 138 degrees QTc Int : 492 ms Sinus rhythm with 1st degree A-V block with occasional Premature ventricular complexes Minimal voltage criteria for LVH, may be normal variant ( [place] product ) Possible Lateral infarct (cited on or before 03-MAY-2016) Abnormal ECG When compared with ECG of 03-MAY-2016 11:11, [place] interval has increased Questionable change in initial forces of Anterolateral leads ST no longer depressed in Inferior leads ST now depressed in Anterior leads Referred By: Mirtha Batres Electronically Signed By:JOHN BECKFORD MD
[2021-11-29 18:18] LABS: MANUAL DIFF FLAG NO
[2021-11-29 18:19] LABS: Basophils Percent Auto 0.4 % (0-2); Eosinophils Absolute Auto 0.1 X10*3/uL (0.0-0.4); Eosinophils Percent Auto 1.3 % (0-4); Hematocrit 44.8 % (42.0-52.0); Hemoglobin 13.9 g/dl (14.0-18.0); Imm Gran Abs Auto 0.02 X10*3/uL (0.00-0.03); Imm Gran Pct Auto 0.2 % (0.0-0.4); Lymphocytes Absolute Auto 0.8 X10*3/uL (1.2-4.9); Lymphocytes Percent Auto 9.9 % (20-40); Mean Corpuscular Hemoglobin 27.4 pg (27.0-33.0); Mean Corpuscular Volume 88.4 fL (80.0-98.0); Mean Platelet Volume 10.9 fL (9.4-12.4); Monocytes Absolute Auto 0.8 X10*3/uL (0.1-1.2); Monocytes Percent Auto 9.3 % (2-11); Neutrophils Absolute Auto 6.6 x10*3/uL (2.0-8.3); Neutrophils Percent Auto 78.9 % (45-73); Platelet Count 205 X10*3/uL (160-400); Red Blood Count 5.07 X10*6/uL (4.60-5.80); White Blood Count 8.4 X10*3/uL (4.8-10.8)
[2021-11-29 18:24] LABS: INTERNATIONAL NORM RATIO 1.5 (0.9-1.1); Prothrombin Time 17.4 SEC (9.9-13.0)
[2021-11-29 18:32] VITALS: BP 111/53; PULSE 59; RESP 18; O2SAT 95
[2021-11-29] MEDS: Furosemide 40 MG/4 ML VIAL IVPUSH (18:33)
[2021-11-29] MEDS: cefTRIAXone sodium 1 GM in 0.9 % Sodium Chloride 50 ML IV (18:33)
[2021-11-29 18:36] LABS: Partial Thromboplastin Time 42.1 SEC (24.1-38.0)
--- NOTE | 2021-11-29 18:36 | PC.NURSE ---
PT ALERT AND ORIENTED, SKIN PWD, RESPIRATIONS EVEN AND UNLABORED, PT REPORTS GROIN/SCROTUM PAIN, SCROTUM/PENIS VERY SWOLLEN/RED/PAINFUL, REDNESS ALL NOTICED TO THE LOWER ABD FOLD, LEFT LOWER LEG HEALING WOUND ON THE LOWER PABLO AREA
[2021-11-29 18:37] LABS: Alanine Aminotransferase 24 U/L (0-40); Albumin Level 3.2 g/dL (3.5-5.0); Alkaline Phosphatase 99 U/L (39-117); Anion Gap 10 (12-20); Aspartate Amino Transferase 31 U/L (5-37); Bilirubin Direct 0.3 mg/dL (0.0-0.5); Bilirubin Total 0.8 mg/dL (0.0-1.0); Blood Urea Nitrogen 19 mg/dL (9-16); Calcium 9.2 mg/dL (8.4-10.2); Carbon Dioxide 31 mmol/L (22-29); Chloride 101 mmol/L (96-108); Creatinine Clr Calc Pharmacy 87.1; Estimated Glomerular Filt Rate > 60; Glucose Random 149 mg/dL (60-115); Lipase 53 U/L (8-78); Potassium 3.9 mmol/L (3.3-5.1); Sodium 138 mmol/L (135-145); Total Protein 6.3 g/dL (6.5-8.0)
[2021-11-29 18:39] LABS: COVID-19 Test Negative (Negative); IDNOW Serial# 55D5AD1C
[2021-11-29 18:42] LABS: B Type Natriuretic Peptide 807 pg/mL (<100); Troponin-I High Sensitivity 29.7 ng/L (<3.5-35.0)
[2021-11-29 19:55] LABS: Appearance Urine CLEAR; Color Urine YELLOW; Glucose Urine UA NEG (NEG); Leukocyte Esterase Urine NEG (NEG); Nitrite Urine NEG (NEG); Specific Gravity - Urine 1.015 (1.005-1.025); UACC Culture Trigger NO; Urine Blood 2+ (NEG); Urine Ketones NEG (NEG); Urine Protein NEG (NEG-TRACE)
[2021-11-29 19:59] LABS: WBC Urine 0 /HPF (0-4)
[2021-11-29 20:00] LABS: Squamous Epithelial Cell Urine TRACE /LPF
--- NOTE | 2021-11-29 20:13 | PHA.MEDREC ---
Pharmacy Consult ? Medication Reconciliation Pharmacy has completed the medication reconciliation.
[2021-11-29] MEDS: Doxycycline Hyclate 100 MG in 0.9 % Sodium Chloride 250 ML 166.67 MG IV (20:38)
[2021-11-29 21:47] LABS: Troponin-I High Sensitivity 31.7 ng/L (<3.5-35.0)
[2021-11-29 22:31] VITALS: BP 90/60; PULSE 60; RESP 16; O2SAT 92
[2021-11-29 22:48] LABS: Glucose, Whole Blood 143 mg/dL (60-115)
--- NOTE | 2021-11-29 22:56 | PM.IMHP ---
History of Present Illness Date of Service: 11/29/21 Chief Complaint: leg swelling Finnish-speaking, history is obtained with the help of an wash crew person This is a 76-year-old male with history of CHF, Graves disease, CAD status post CABG, diabetes, hypertension, who presents to the hospital with complaints of lower extremity edema as well as scrotum swelling and pain. Patient reports that his symptoms started gradually about a week ago has worsened. He went to his PCP and his PCP sent into the hospital today. Patient reports chronic wounds in his left lower extremity but noticed increased swelling in his scrotum, pain on urination, and itchiness around that area. Patient denies having any dysuria or urgency and no frequency. He reports compliance with his torsemide. He also has painful skin on his abdomen, warm and red. Patient denies any chest pain, no shortness of breath, no abdominal pain nausea or vomiting, no diarrhea or constipation, no headache or change in vision. On arrival to the ED patient found to have no significant abnormal vitals Labs are significant for WBC count of 8.6, hemoglobin of 12.8 with hematocrit 41.2, INR of 1.5, BNP of 807, initial troponin of 29.7 increased to 31.7, UA negative for any infection, Scrotum ultrasound showed significant soft tissue thickening of the left inguinal and left scrotal region correlate clinically for sign of infection including cellulitis, Given degree of cellulitis, as well as CHF, I anticipate a medically necessary more than 2 midnight inpatient admission for treatment and monitoring response. This cannot be done in a less acute setting as he will do poorly as an outpatient given requirement for IV Lasix and IV antibiotics Review of Systems Review of Systems: Yes all other systems are reviewed and are negative [facility] Medical History (Updated 11/30/21 @ 06:26 by Reuben Montenegro MD) CHF (congestive heart failure) Graves disease History of coronary artery disease Multinodular goiter Vitamin D deficiency Family History Father Cancer Mother No problems noted. Surgical History Hx of coronary artery bypass graft Social History Alcohol intake: current Alcohol intake frequency: does not drink Patient Tobacco Use Status: Never used Tobacco Use of substances other than those prescribed or required for medical reasons: No Advance Directives: No Advance Directives Information Provided: No Meds Allergies Allergy/AdvReac Type Severity Reaction Status Date / Time No Known Allergies Allergy Mild N/A Verified 11/29/21 17:09 Active Medications: Current Medications Acetaminophen (Acetaminophen 325 Mg Tablet) 650 mg PO Q6H PRN PRN Reason: Pain, Mild (Pain Scale 1-3) Furosemide (Furosemide 40 Mg/4 Ml Vial) 40 mg IVPUSH BID@0900,1800 CHANTEL; Protocol Ceftriaxone Sodium 1 gm/ (Sodium Chloride) 50 mls @ 100 mls/hr IV Q24H [facility] Doxycycline Hyclate 100 mg/ (Sodium Chloride) 250 mls @ 166.67 mls/hr IV Q12H [facility] Ondansetron HCl (Ondansetron Hcl 4 Mg/2 Ml Vial) 4 mg IVPUSH Q8H PRN PRN Reason: Nausea and Vomiting Oxycodone HCl (Oxycodone Hcl Immed Release 5 Mg Tablet) 5 mg PO Q6H PRN PRN Reason: Pain, Severe (Pain Scale 7-10) Sodium Chloride (0.9 % Sodium Chloride Flush 3 Ml Syringe) 3 ml IVFLUSH QSHIFT [facility] Home Medications Medication Instructions Recorded Confirmed Last Taken Type acetaminophen 650 mg 1,300 mg PO Q8H PRN 06/10/20 11/29/21 Unknown History tablet,extended release apixaban 5 mg tablet 5 mg PO BID 06/10/20 11/29/21 Unknown History bisoprolol fumarate 5 mg tablet 5 mg PO BEDTIME 06/10/20 11/29/21 Unknown History blood sugar diagnostic #10 ea 06/10/20 12/19/20 Unknown History blood-glucose meter #1 ea 06/10/20 12/19/20 Unknown History docusate sodium 100 mg capsule 100 mg PO BID 06/10/20 11/29/21 Unknown History isosorbide mononitrate 60 mg 60 mg PO QAM 06/10/20 11/29/21 Unknown History tablet,extended release 24 hr lancets 33 gauge #100 ea 06/10/20 12/19/20 Unknown History lisinopril 2.5 mg tablet 2.5 mg PO QAM 06/10/20 11/29/21 Unknown History metformin 500 mg tablet,extended 500 mg PO DAILY@1700 06/10/20 11/29/21 Unknown History release 24 hr pen needle, diabetic 32 gauge x #50 ea 06/10/20 12/19/20 Unknown History rosuvastatin 40 mg tablet 40 mg PO BEDTIME 06/10/20 11/29/21 Unknown History clopidogrel 75 mg tablet 75 mg PO DAILY 06/13/20 11/29/21 Unknown History insulin glargine 100 unit/mL (3 20 unit SUBCUT BEDTIME ml 12/19/20 11/29/21 Unknown History mL) subcutaneous pen torsemide 20 mg tablet 20 mg PO DAILY@1200 10/25/21 11/29/21 Unknown History torsemide 20 mg tablet 40 mg PO DAILY 11/29/21 11/29/21 Unknown History Physical Exam Vital Signs and Narrative: Vital Signs: Last Vital Signs Temp 97.8 F 11/29/21 17:07 Pulse 60 11/29/21 22:31 Resp 16 11/29/21 22:31 BP 90/60 11/29/21 22:31 Pulse Ox 92 11/29/21 22:31 BMI result Body Mass Index 34.7 Const: General: cooperative and no acute distress Orientation/consciousness: patient oriented x3 Eyes: General: appearance normal, both eyes and all related structures Pupils: Equal, round and reactive pupils present Resp: Effort & Inspection: normal respiratory effort Auscultation: clear to auscultation bilaterally Cardio: Rate: regular rate Rhythm: regular rhythm GI: Palpation (GI): Soft to palpation Auscultation: normal bowel sounds : Other: Significant swelling of the scrotum, as well as erythema, tenderness on palpation Skin: Other: Lower abdominal tenderness, erythema, warmth, edematous Neuro: General: patient oriented x3 Cranial nerves: Yes Equal, round and reactive pupils present Cognition (Neuro): normal cognition Extrem: Other: Bilateral 2+ pitting edema Left lower extremity around the ferguson has multiple ulcers but do not appear infected Results Labs CBC and Chem 7: 11/30/21 05:44 11/29/21 18:08 Labs: Laboratory Results - last 24 hr 11/29/21 11/29/21 11/29/21 18:08 18:08 18:08 MCV 88.4 MCH 27.4 MCHC 31.0 RDW 16.0 Plt Count 205 MPV 10.9 Immature Gran % (Auto) 0.2 Neut % (Auto) 78.9 H Lymph % (Auto) 9.9 L [place] % (Auto) 9.3 Eos % (Auto) 1.3 Baso % (Auto) 0.4 Lymph # (Auto) 0.8 L [place] # (Auto) 0.8 Eos # (Auto) 0.1 Baso # (Auto) 0.0 Abs Immat Gran (auto) 0.02 Absolute Neuts (auto) 6.6 Absolute Nucleated RBC 0.000 Nucleated RBC % (auto) 0.0 PT INR APTT Anion Gap 10 L Estim Creat Clear Calc 87.1 Estimated GFR > 60 POC Glucose Random Glucose 149 H Lactic Acid Calcium 9.2 Magnesium 2.0 Total Bilirubin 0.8 Direct Bilirubin 0.3 AST 31 ALT 24 Alkaline Phosphatase 99 D B-Natriuretic Peptide Total Protein 6.3 L Albumin 3.2 L Lipase 53 Urine Color Urine Appearance Urine pH Ur Specific Eldridge Urine Protein Urine Glucose (UA) Urine Ketones Urine Blood Urine Nitrite Ur Leukocyte Esterase Urine RBC Urine WBC Ur Squamous Epith Cells Urine Bacteria COVID-19 (FLAVIO) Negative COVID-19 Clin Com See Note 11/29/21 11/29/21 11/29/21 18:08 18:08 18:09 MCV MCH MCHC RDW Plt Count MPV Immature Gran % (Auto) Neut % (Auto) Lymph % (Auto) [place] % (Auto) Eos % (Auto) Baso % (Auto) Lymph # (Auto) [place] # (Auto) Eos # (Auto) Baso # (Auto) Abs Immat Gran (auto) Absolute Neuts (auto) Absolute Nucleated RBC Nucleated RBC % (auto) PT 17.4 H INR 1.5 H APTT 42.1 H Anion Gap Estim Creat Clear Calc Estimated GFR POC Glucose Random Glucose Lactic Acid Calcium Magnesium Total Bilirubin Direct Bilirubin AST ALT Alkaline Phosphatase B-Natriuretic Peptide 807 H Total Protein Albumin Lipase Urine Color Urine Appearance Urine pH Ur Specific Eldridge Urine Protein Urine Glucose (UA) Urine Ketones Urine Blood Urine Nitrite Ur Leukocyte Esterase Urine RBC Urine WBC Ur Squamous Epith Cells Urine Bacteria COVID-19 (FLAVIO) COVID-[employer] Com 11/29/21 11/29/21 11/29/21 18:09 19:34 22:44 MCV MCH MCHC RDW Plt Count MPV Immature Gran % (Auto) Neut % (Auto) Lymph % (Auto) [place] % (Auto) Eos % (Auto) Baso % (Auto) Lymph # (Auto) [place] # (Auto) Eos # (Auto) Baso # (Auto) Abs Immat Gran (auto) Absolute Neuts (auto) Absolute Nucleated RBC Nucleated RBC % (auto) PT INR APTT Anion Gap Estim Creat Clear Calc Estimated GFR POC Glucose 143 H Random Glucose Lactic Acid 1.0 Calcium Magnesium Total Bilirubin Direct Bilirubin AST ALT Alkaline Phosphatase B-Natriuretic Peptide Total Protein Albumin Lipase Urine Color YELLOW Urine Appearance CLEAR Urine pH 6.0 Ur Specific Eldridge 1.015 Urine Protein NEG Urine Glucose (UA) NEG Urine Ketones NEG Urine Blood 2+ H Urine Nitrite NEG Ur Leukocyte Esterase NEG Urine RBC 15-29 H Urine WBC 0 Ur Squamous Epith Cells TRACE Urine Bacteria NONE COVID-19 (FLAVIO) COVID-19 Clin Com ECG Interpretation: EKG shows sinus rhythm with first-degree AV block with occasional premature ventricular complexes, with various nonspecific ST T wave abnormalities Imaging Radiologist's Impressions: Impressions Scrotum Ultrasound 11/29/21 17:32 IMPRESSION: 1. Significant soft tissue thickening in the left inguinal and left scrotal regions. Correlate clinically for signs of infection (cellulitis/phlegmonous changes). 2. Unfortunately, the degree of soft tissue swelling limits assessment of the left epididymis which is not well visualized. Additionally, there is questionable decreased flow to the left testicle, although this is likely artifactual and related with the degree of soft tissue swelling. Recommend a short-term examination. 3. Normal right testicle and right epididymis. Chest X-Ray 11/29/21 17:55 IMPRESSION: Mild pulmonary vascular congestion with small bilateral pleural effusions. No overt pulmonary edema. Assessment and Plan (1) Cellulitis: Status: Acute (2) Acute exacerbation of CHF (congestive heart failure): Status: Acute (3) Scrotal swelling: Status: Acute Plan 76-year-old male with past medical history of CAD status post CABG, hypertension, Graves, diabetes who presents to the hospital with complaints of lower extremity swelling as well as scrotal swelling # acute CHF exacerbation - no documentation file but appears to have systolic heart failure in the setting of history of CAD and CABG - presents today with lower extremity edema, orthopnea, PND as well as elevated BNP - on torsemide 40 mg at home, patient reports compliance - troponin slightly elevated with no delta, no EKG changes suggestive of ACS - will start patient on Lasix 40 IV b.i.d., strict I&O, daily diet, low-sodium diet # cellulitis - acute cellulitis of the abdominal wall - extensive, with significant erythema, tenderness, and edema - will treat with IV antibiotics - follow cultures # scrotal swelling - scrotum ultrasound as above showing possible cellulitis - will treat with IV antibiotics - Lasix - follow cultures # CAD status post CABG - will continue Plavix, # diabetes - hold metformin - add low-dose sliding scale insulin - diabetic diet # Graves disease - continue methimazole # hypertension - stable - continue lisinopril DVT prophylaxis: Eliquis Given degree of cellulitis, as well as CHF, I anticipate a medically necessary more than 2 midnight inpatient admission for treatment and monitoring response. This cannot be done in a less acute setting as he will do poorly as an outpatient given requirement for IV Lasix and IV antibiotics Quality Stroke Does the patient have a stroke diagnosis?: No VTE Prior VTE?: No VTE Risk Level:: Medical - moderate - high VTE Device Contraindication: Treatment Not Indicated VTE Drug Contraindication: N/A - Med Ordered
[2021-11-30 00:07] VITALS: BP 113/54; PULSE 61; RESP 18; O2SAT 97
[2021-11-30 06:01] LABS: MANUAL DIFF FLAG NO
[2021-11-30 06:12] LABS: Basophils Percent Auto 0.5 % (0-2); Eosinophils Absolute Auto 0.1 X10*3/uL (0.0-0.4); Eosinophils Percent Auto 1.5 % (0-4); Hematocrit 41.2 % (42.0-52.0); Hemoglobin 12.8 g/dl (14.0-18.0); Imm Gran Abs Auto 0.03 X10*3/uL (0.00-0.03); Imm Gran Pct Auto 0.3 % (0.0-0.4); Lymphocytes Absolute Auto 0.7 X10*3/uL (1.2-4.9); Lymphocytes Percent Auto 7.6 % (20-40); Mean Corpuscular HGB Conc 31.1 g/dl (31.0-36.0); Mean Corpuscular Hemoglobin 27.5 pg (27.0-33.0); Mean Corpuscular Volume 88.4 fL (80.0-98.0); Mean Platelet Volume 10.9 fL (9.4-12.4); Monocytes Absolute Auto 0.9 X10*3/uL (0.1-1.2); Monocytes Percent Auto 9.8 % (2-11); Neutrophils Absolute Auto 6.9 x10*3/uL (2.0-8.3); Neutrophils Percent Auto 80.3 % (45-73); Platelet Count 184 X10*3/uL (160-400); Red Blood Count 4.66 X10*6/uL (4.60-5.80); White Blood Count 8.6 X10*3/uL (4.8-10.8)
[2021-11-30 06:34] VITALS: BP 102/43; PULSE 60; RESP 16; O2SAT 96
[2021-11-30 06:54] LABS: Anion Gap 11 (12-20); Blood Urea Nitrogen 14 mg/dL (9-16); Calcium 8.6 mg/dL (8.4-10.2); Carbon Dioxide 30 mmol/L (22-29); Chloride 104 mmol/L (96-108); Creatinine Clr Calc Pharmacy 89.5; Estimated Glomerular Filt Rate > 60; Glucose Random 133 mg/dL (60-115); Potassium 3.7 mmol/L (3.3-5.1); Sodium 141 mmol/L (135-145)
[2021-11-30 07:17] LABS: Glucose, Whole Blood 137 mg/dL (60-115)
--- NOTE | 2021-11-30 07:30 | CA_ITS ---
Transthoracic Echocardiogram Patient (Last, First, Middle): Derek Aguiar, Gender: Male Date of : 1945 Age: 76 Procedure Date: 11/30/2021 Procedure Type: Transthoracic Echocardiogram Location: ER Height: 165.1 cm Weight: 94.35 kg BSA: 2.01 m2 Heart Rate: bpm BP: 113 / 54 mmHg Veterans' Counselor: BRAVO Referring MD: Reuben Montenegro MD Symptoms: CHF Study Quality: Technically Difficult/contrast Conclusions: - Moderately increased left ventricular cavity size. There is mildly increased left ventricular wall thickness. The left ventricular systolic function is moderately decreased. The visually estimated ejection fraction is between 30-35%. - E/E prime ratio is >15, consistent with elevated filling pressures. - Moderately increased right ventricular cavity size. There is moderately decreased right ventricular systolic function. - The left atrium is severely dilated. The right atrium is severely dilated. - Significantly elevated right atrial pressure. Severe pulmonary hypertension is present. Findings Procedure Information Contrast agent, definity, is being given per protocol without apparent complications. Left Ventricle Moderately increased left ventricular cavity size. There is mildly increased left ventricular wall thickness. The left ventricular systolic function is moderately decreased. The visually estimated ejection fraction is between 30 35%. There is paradoxical septal motion consistent with post-operative status. Abnormal diastolic function is noted. Spectral Doppler is indicative of a restrictive filling pattern. E/E prime ratio is >15, consistent with elevated filling pressures. Right Ventricle Moderately increased right ventricular cavity size. There is moderately decreased right ventricular systolic function. Atria The left atrium is severely dilated. The right atrium is severely dilated. Aortic Valve A bioprosthetic aortic valve is present. The prosthetic aortic valve appears to be functioning normally. There is mild aortic valve stenosis. There is no aortic valve regurgitation. Mitral Valve The mitral valve appears normal. There is moderate mitral annular calcification. There is trace mitral valve regurgitation. There is no mitral valve stenosis. Pulmonic Valve The pulmonic valve is likely normal. Tricuspid Valve Normal tricuspid valve structure. There is trace tricuspid valve regurgitation. Significantly elevated right atrial pressure. Severe pulmonary hypertension is present. Great Vessels All visible segments of the aorta are normal in size. The visualized portions of the pulmonary artery and branches are normal. Venous The inferior vena cava is dilated and collapses less than 50% with inspiration. Pericardium/Pleural There is no evidence of pericardial effusion. Measurements 2D Linear Measurements IVSd: 1.10 0.6-0.9/0.6-1.0 cm LVIDd: 6.96 3.9-5.3/4.2-5.9 cm LVIDd Index: 3.46 2.4-3.2/2.2-3.1 cm/m2 LVIDs: 6.11 2.0-3.6 cm LVPWd: 1.02 0.7-1.1 cm LA Diam: 5.10 2.7-3.8/3.0-4.0 cm LAIDs Index: 2.54 1.5-2.3 cm/m2 LV Mass: 427.92 67-162/88-224 g LV Mass Index: 212.89 43-95/49-115 g/m2 LVOT Diam: 2.00 3.0+(-)1.3 cm 2D Systolic Function EF 4C: 37.90 >55% EF 2C: 29.80 >55% EF BiP: 35.00 >55% Mitral Valve MV VTI: 0.45 MV Pk Tony: 1.69 MV Mn Tony: 0.83 MV Pk Grad: 11.00 MV Mn Grad: 4.00 MV Pk E: 1.63 MV PK A: 0.62 MV Decel Time: 210.00 E/A: 2.60 E'Lateral: 3.71 E'Medial: 2.70 E/E' Med: 60.40 E/E' Lat: 43.90 PHT: 62.00 MVA PHT: 3.55 MVA Continuity: 2.23 Decel Sampson: 7.73 Aortic Valve AoV Pk Tony: 2.48 AoV Mn Tony: 1.73 AoV VTI: 0.57 AoV Pk Grad: 25.00 Aov Mn Grad: 13.00 MICHELLE Cont.VTI: 1.76 LVOT LVOT Pk Tony: 1.39 LVOT Mn Tony: 0.92 LVOT VTI: 0.32 LVOT Pk Grad: 8.00 LVOT Mn Grad: 4.00 LVOT Diam: 2.00 LVOT Area: 3.14 Diastolic Function MV Pk E: 1.63 MV Pk A: 0.62 E/A: 2.60 E'Medial: 2.70 E/E' Med: 60.40 E' Laterial: 3.71 E/E' Lat: 43.90 Right Ventricle TAPSE (mm): 15.80 TVS' Tony: 6.57 Tricuspid Valve TR Pk Tony: 3.68 TR Pk Grad: 54.00 RVSP: 69.00 Great Vessels Aorta Ao Asc: 3.30 2.1-3.4 cm Updated in Other Vendor System with Status of Final Leon Mercer MD electronically signed on 11/30/2021 6:17:01 PM with status of Final
[2021-11-30] MEDS: oxyCODONE HCl Immed Release 5 MG TABLET PO (08:51)
[2021-11-30] MEDS: Furosemide 40 MG/4 ML VIAL IVPUSH (09:05)
[2021-11-30] MEDS: Docusate Sodium 100 MG CAPSULE PO ×2 (09:06→21:24)
[2021-11-30] MEDS: Clopidogrel Bisulfate 75 MG TABLET PO (09:06)
[2021-11-30] MEDS: Isosorbide Mononitrate 60 MG TAB.ER.24H PO (09:06)
[2021-11-30] MEDS: 0.9 % Sodium Chloride Flush 3 ML SYRINGE IVFLUSH ×3 (09:06→23:48)
[2021-11-30] MEDS: lisinopriL 2.5 MG TABLET PO (09:06)
[2021-11-30] MEDS: Apixaban 5 MG TABLET PO (09:09)
[2021-11-30] MEDS: Cholecalciferol (Vitamin D3) 25 MCG TABLET PO (09:09)
[2021-11-30] MEDS: methIMAzole 5 MG TABLET 2.5 MG PO (09:09)
--- NOTE | 2021-11-30 09:48 | PC.NURSE ---
spoke earlier with pt via the vietnamese interperter, no concerns or qestions at this time. Denies any pain
--- NOTE | 2021-11-30 09:57 | P.PNIM_ITS ---
Subjective Subjective Date of Service: 12/01/21 Interval History: CC: f/u CHF, abd wall cellulitis, Itnerval history: feels better, residual swelling in the legs Review of Systems leg edema, pain in lower abdomen Physical Exam Vital Signs: Vital Signs: Last Vital Signs Temp 97.8 F 11/29/21 17:07 Pulse 60 11/30/21 06:34 Resp 16 11/30/21 06:34 BP 102/43 L 11/30/21 06:34 Pulse Ox 96 11/30/21 06:34 BMI result Body Mass Index 34.7 Const: Other: General: AO X 3, no acute distress Resp: CTA bilateral CVS: S1,S2,RRR, 2+ leg gabriel, GI: +BS, NT, no distention Skin: No rash, some redness of legs, lower abdomen, f Neuro: motor grossly intact Psych: appropriate affect Objective Data Active Medications Acetaminophen (Acetaminophen 325 Mg Tablet) 650 mg PO Q6H PRN PRN Reason: Pain, Mild (Pain Scale 1-3) Apixaban (Apixaban 5 Mg Tablet) 5 mg PO BID [facility] Last Admin: 11/30/21 09:09 Dose: 5 mg Documented by: MONICA Atorvastatin Calcium (Atorvastatin Calcium 20 Mg Tablet) 20 mg PO BEDTIME [facility] Bisoprolol Fumarate (Bisoprolol Fumarate 5 Mg Tablet) 5 mg PO BEDTIME [facility] Clopidogrel Bisulfate (Clopidogrel Bisulfate 75 Mg Tablet) 75 mg PO DAILY [facility] Last Admin: 11/30/21 09:06 Dose: 75 mg Documented by: MONICA Dextrose (Dextrose 50 % 25 Gm/50 Ml Vial) 25 gm IVPUSH Q15M PRN; Protocol PRN Reason: per Hypoglycemia Standing Ord. Docusate Sodium (Docusate Sodium 100 Mg Capsule) 100 mg PO BID [facility] Last Admin: 11/30/21 09:06 Dose: 100 mg Documented by: MONICA Furosemide (Furosemide 40 Mg/4 Ml Vial) 40 mg IVPUSH BID@0900,1800 [facility]; Protocol Last Admin: 11/30/21 09:05 Dose: 40 mg Documented by: MONICA Glucose (Glucose Gel 15 Gm Gel..Gram.) 15 gm PO Q15M PRN; Protocol PRN Reason: per Hypoglycemia Standing Ord. Doxycycline Hyclate 100 mg/ (Sodium Chloride) 250 mls @ 166.67 mls/hr IV Q12H [facility] Insulin Glargine (Insulin Glargine,Hum.Rec.Anlog 100 Unit/Ml 10 Ml Vial) 20 unit SUBCUT BEDTIME [facility] Insulin Human Lispro (Insulin Lispro 100 Unit/Ml 3 Ml Vial) 0 unit SUBCUT QIDACHS [facility]; Protocol Isosorbide Mononitrate (Isosorbide Mononitrate 60 Mg Tab.Er.24h) 60 mg PO DAILY [facility]; Protocol Last Admin: 11/30/21 09:06 Dose: 60 mg Documented by: MONICA Lisinopril (Lisinopril 2.5 Mg Tablet) 2.5 mg PO DAILY [facility]; Protocol Last Admin: 11/30/21 09:06 Dose: 2.5 mg Documented by: MONICA Methimazole (Methimazole 5 Mg Tablet) 2.5 mg PO DAILY [facility] Last Admin: 11/30/21 09:09 Dose: 2.5 mg Documented by: MONICA Ondansetron HCl (Ondansetron Hcl 4 Mg/2 Ml Vial) 4 mg IVPUSH Q8H PRN PRN Reason: Nausea and Vomiting Oxycodone HCl (Oxycodone Hcl Immed Release 5 Mg Tablet) 5 mg PO Q6H PRN PRN Reason: Pain, Severe (Pain Scale 7-10) Last Admin: 11/30/21 08:51 Dose: 5 mg Documented by: ALO Sodium Chloride (0.9 % Sodium Chloride Flush 3 Ml Syringe) 3 ml IVFLUSH QSHIFT [facility] Last Admin: 11/30/21 09:06 Dose: 3 ml Documented by: MONICA Vitamin D (Cholecalciferol (Vitamin D3) 25 Mcg Tablet) 25 mcg PO DAILY [facility] Last Admin: 11/30/21 09:09 Dose: 25 mcg Documented by: MONICA Labs CBC & Chem 7: 11/30/21 15:18 11/30/21 05:44 Labs: Laboratory Results - last 24 hr 11/29/21 11/29/21 11/29/21 18:08 18:08 18:08 MCV 88.4 MCH 27.4 MCHC 31.0 RDW 16.0 Plt Count 205 MPV 10.9 Immature Gran % (Auto) 0.2 Neut % (Auto) 78.9 H Lymph % (Auto) 9.9 L [place] % (Auto) 9.3 Eos % (Auto) 1.3 Baso % (Auto) 0.4 Lymph # (Auto) 0.8 L [place] # (Auto) 0.8 Eos # (Auto) 0.1 Baso # (Auto) 0.0 Abs Immat Gran (auto) 0.02 Absolute Neuts (auto) 6.6 Absolute Nucleated RBC 0.000 Nucleated RBC % (auto) 0.0 PT INR APTT Anion Gap 10 L Estim Creat Clear Calc 87.1 Estimated GFR > 60 POC Glucose Random Glucose 149 H Lactic Acid Calcium 9.2 Magnesium 2.0 Total Bilirubin 0.8 Direct Bilirubin 0.3 AST 31 ALT 24 Alkaline Phosphatase 99 D B-Natriuretic Peptide Total Protein 6.3 L Albumin 3.2 L Lipase 53 Urine Color Urine Appearance Urine pH Ur Specific [place] Urine Protein Urine Glucose (UA) Urine Ketones Urine Blood Urine Nitrite Ur Leukocyte Esterase Urine RBC Urine WBC Ur Squamous Epith Cells Urine Bacteria COVID-19 ([facility]) Negative COVID-19 Clin Com See Note 11/29/21 11/29/21 11/29/21 18:08 18:08 18:09 MCV MCH MCHC RDW Plt Count MPV Immature Gran % (Auto) Neut % (Auto) Lymph % (Auto) [place] % (Auto) Eos % (Auto) Baso % (Auto) Lymph # (Auto) [place] # (Auto) Eos # (Auto) Baso # (Auto) Abs Immat Gran (auto) Absolute Neuts (auto) Absolute Nucleated RBC Nucleated RBC % (auto) PT 17.4 H INR 1.5 H APTT 42.1 H Anion Gap Estim Creat Clear Calc Estimated GFR POC Glucose Random Glucose Lactic Acid Calcium Magnesium Total Bilirubin Direct Bilirubin AST ALT Alkaline Phosphatase B-Natriuretic Peptide 807 H Total Protein Albumin Lipase Urine Color Urine Appearance Urine pH Ur Specific [place] Urine Protein Urine Glucose (UA) Urine Ketones Urine Blood Urine Nitrite Ur Leukocyte Esterase Urine RBC Urine WBC Ur Squamous Epith Cells Urine Bacteria COVID-19 (FLAVIO) COVID-C8 [employer] Com 11/29/21 11/29/21 11/29/21 18:09 19:34 22:44 MCV MCH MCHC RDW Plt Count MPV Immature Gran % (Auto) Neut % (Auto) Lymph % (Auto) [place] % (Auto) Eos % (Auto) Baso % (Auto) Lymph # (Auto) [place] # (Auto) Eos # (Auto) Baso # (Auto) Abs Immat Gran (auto) Absolute Neuts (auto) Absolute Nucleated RBC Nucleated RBC % (auto) PT INR APTT Anion Gap Estim Creat Clear Calc Estimated GFR POC Glucose 143 H Random Glucose Lactic Acid 1.0 Calcium Magnesium Total Bilirubin Direct Bilirubin AST ALT Alkaline Phosphatase B-Natriuretic Peptide Total Protein Albumin Lipase Urine Color YELLOW Urine Appearance CLEAR Urine pH 6.0 Ur Specific [place] 1.015 Urine Protein NEG Urine Glucose (UA) NEG Urine Ketones NEG Urine Blood 2+ H Urine Nitrite NEG Ur Leukocyte Esterase NEG Urine RBC 15-29 H Urine WBC 0 Ur Squamous Epith Cells TRACE Urine Bacteria NONE COVID-19 ([facility]) COVID-19 Clin Com 11/30/21 11/30/21 11/30/21 05:44 05:44 07:11 MCV 88.4 MCH 27.5 MCHC 31.1 RDW 16.0 Plt Count 184 MPV 10.9 Immature Gran % (Auto) 0.3 Neut % (Auto) 80.3 H Lymph % (Auto) 7.6 L [place] % (Auto) 9.8 Eos % (Auto) 1.5 Baso % (Auto) 0.5 Lymph # (Auto) 0.7 L [place] # (Auto) 0.9 Eos # (Auto) 0.1 Baso # (Auto) 0.0 Abs Immat Gran (auto) 0.03 Absolute Neuts (auto) 6.9 Absolute Nucleated RBC 0.000 Nucleated RBC % (auto) 0.0 PT INR APTT Anion Gap 11 L Estim Creat Clear Calc 89.5 Estimated GFR > 60 POC Glucose 137 H Random Glucose 133 H Lactic Acid Calcium 8.6 D Magnesium Total Bilirubin Direct Bilirubin AST ALT Alkaline Phosphatase B-Natriuretic Peptide Total Protein Albumin Lipase Urine Color Urine Appearance Urine pH Ur Specific [place] Urine Protein Urine Glucose (UA) Urine Ketones Urine Blood Urine Nitrite Ur Leukocyte Esterase Urine RBC Urine WBC Ur Squamous Epith Cells Urine Bacteria COVID-19 ([facility]) COVID-19 Clin Com Assessment and Plan (1) Scrotal swelling: Status: Acute (2) Cellulitis: Status: Acute (3) Acute exacerbation of CHF (congestive heart failure): Status: Acute (4) Acute epididymitis: Status: Acute Plan 76-year-old male with past medical history of CAD status post CABG, hypertension, Graves, diabetes who presents to the hospital with complaints of lower extremity swelling as well as scrotal swelling # acute CHF exacerbation, likely systolic heart failure -Continue IV Lasix for one more day and change to PO tomorrow -Echo EF 30/35 -See cardiology note -Track I/O, weight and salt intake # cellulitis, abdominal wall area, going to groing, with fungal element. -ID eval, continue Doxy, add Nystatin powerder # scrotal swelling--I think the swelling is mostly related to heart failure and fungal rash in the area, -continue Abx as above # CAD status post CABG - will continue Plavix, # diabetes, - hold metformin sliding scale insulin - diabetic diet # Graves disease - continue methimazole # hypertension - stable - continue lisinopril DVT prophylaxis:? Eliquis Inpatient : d/t need for IV diuretics for heart failure, further work up and IV Abx for cellulitis as above Quality Stroke Does the patient have a stroke diagnosis?: No VTE Prior VTE?: No VTE Risk Level:: Medical - moderate - high VTE Device Contraindication: Treatment Not Indicated VTE Drug Contraindication: N/A - Med Ordered
--- NOTE | 2021-11-30 10:18 | PM.CNCAR ---
History of Present Illness History of Present Illness Date of Service: 11/30/21 Chief complaint: CHF Narrative: 76-year-old gentleman who is presenting swelling in the lower extremity and pain. Clinically was thought to be in heart failure he had is denying any chest pain or shortness of breath but is complaining that his lower extremities are swollen. Was started on diuretics with some improvement in his swelling per report. No fevers or chills right now. [facility] Past Medical History Medical History (Updated 11/30/21 @ 22:14 by Leon Mercer MD) CHF (congestive heart failure) Graves disease History of coronary artery disease Multinodular goiter Vitamin D deficiency Family History Family History Father Cancer Mother No problems noted. Surgical History Surgical History (Updated 11/30/21 @ 06:24 by Reuben Montenegro MD) Hx of coronary artery bypass graft Social History Social History Alcohol intake: current Alcohol intake frequency: does not drink Patient Tobacco Use Status: Never used Tobacco Meds Allergies Allergy/AdvReac Type Severity Reaction Status Date / Time No Known Allergies Allergy Mild N/A Verified 11/29/21 17:09 Active Medications: Current Medications Acetaminophen (Acetaminophen 325 Mg Tablet) 650 mg PO Q6H PRN PRN Reason: Pain, Mild (Pain Scale 1-3) Apixaban (Apixaban 5 Mg Tablet) 5 mg PO BID [facility] Last Admin: 11/30/21 09:09 Dose: 5 mg Documented by: Atorvastatin Calcium (Atorvastatin Calcium 20 Mg Tablet) 20 mg PO BEDTIME [facility] Bisoprolol Fumarate (Bisoprolol Fumarate 5 Mg Tablet) 5 mg PO BEDTIME [facility] Clopidogrel Bisulfate (Clopidogrel Bisulfate 75 Mg Tablet) 75 mg PO DAILY [facility] Last Admin: 11/30/21 09:06 Dose: 75 mg Documented by: Dextrose (Dextrose 50 % 25 Gm/50 Ml Vial) 25 gm IVPUSH Q15M PRN; Protocol PRN Reason: per Hypoglycemia Standing Ord. Docusate Sodium (Docusate Sodium 100 Mg Capsule) 100 mg PO BID [facility] Last Admin: 11/30/21 09:06 Dose: 100 mg Documented by: Furosemide (Furosemide 40 Mg/4 Ml Vial) 40 mg IVPUSH BID@0900,1800 [facility]; Protocol Last Admin: 11/30/21 09:05 Dose: 40 mg Documented by: Glucose (Glucose Gel 15 Gm Gel..Gram.) 15 gm PO Q15M PRN; Protocol PRN Reason: per Hypoglycemia Standing Ord. Doxycycline Hyclate 100 mg/ (Sodium Chloride) 250 mls @ 166.67 mls/hr IV Q12H [facility] Insulin Glargine (Insulin Glargine,Hum.Rec.Anlog 100 Unit/Ml 10 Ml Vial) 20 unit SUBCUT BEDTIME [facility] Insulin Human Lispro (Insulin Lispro 100 Unit/Ml 3 Ml Vial) 0 unit SUBCUT QIDACHS [facility]; Protocol Last Admin: 11/30/21 09:58 Dose: Not Given Documented by: Isosorbide Mononitrate (Isosorbide Mononitrate 60 Mg Tab.Er.24h) 60 mg PO DAILY [facility]; Protocol Last Admin: 11/30/21 09:06 Dose: 60 mg Documented by: Lisinopril (Lisinopril 2.5 Mg Tablet) 2.5 mg PO DAILY [facility]; Protocol Last Admin: 11/30/21 09:06 Dose: 2.5 mg Documented by: Methimazole (Methimazole 5 Mg Tablet) 2.5 mg PO DAILY [facility] Last Admin: 11/30/21 09:09 Dose: 2.5 mg Documented by: Nystatin (Nystatin Powder 15 Gm Bottle) 1 appl TOPICAL BID [facility]; Protocol Ondansetron HCl (Ondansetron Hcl 4 Mg/2 Ml Vial) 4 mg IVPUSH Q8H PRN PRN Reason: Nausea and Vomiting Oxycodone HCl (Oxycodone Hcl Immed Release 5 Mg Tablet) 5 mg PO Q6H PRN PRN Reason: Pain, Severe (Pain Scale 7-10) Last Admin: 11/30/21 08:51 Dose: 5 mg Documented by: Sodium Chloride (0.9 % Sodium Chloride Flush 3 Ml Syringe) 3 ml IVFLUSH QSHIFT [facility] Last Admin: 11/30/21 09:06 Dose: 3 ml Documented by: Vitamin D (Cholecalciferol (Vitamin D3) 25 Mcg Tablet) 25 mcg PO DAILY [facility] Last Admin: 11/30/21 09:09 Dose: 25 mcg Documented by: Home Medications Medication Instructions Recorded Confirmed Last Taken Type acetaminophen 650 mg 1,300 mg PO Q8H PRN 06/10/20 11/29/21 Unknown History tablet,extended release apixaban 5 mg tablet 5 mg PO BID 06/10/20 11/29/21 Unknown History bisoprolol fumarate 5 mg tablet 5 mg PO BEDTIME 06/10/20 11/29/21 Unknown History blood sugar diagnostic #10 ea 06/10/20 12/19/20 Unknown History blood-glucose meter #1 ea 06/10/20 12/19/20 Unknown History docusate sodium 100 mg capsule 100 mg PO BID 06/10/20 11/29/21 Unknown History isosorbide mononitrate 60 mg 60 mg PO QAM 06/10/20 11/29/21 Unknown History tablet,extended release 24 hr lancets 33 gauge #100 ea 06/10/20 12/19/20 Unknown History lisinopril 2.5 mg tablet 2.5 mg PO QAM 06/10/20 11/29/21 Unknown History metformin 500 mg tablet,extended 500 mg PO DAILY@1700 06/10/20 11/29/21 Unknown History release 24 hr pen needle, diabetic 32 gauge x #50 ea 06/10/20 12/19/20 Unknown History rosuvastatin 40 mg tablet 40 mg PO BEDTIME 06/10/20 11/29/21 Unknown History clopidogrel 75 mg tablet 75 mg PO DAILY 06/13/20 11/29/21 Unknown History insulin glargine 100 unit/mL (3 20 unit SUBCUT BEDTIME ml 12/19/20 11/29/21 Unknown History mL) subcutaneous pen torsemide 20 mg tablet 20 mg PO DAILY@1200 10/25/21 11/29/21 Unknown History torsemide 20 mg tablet 40 mg PO DAILY 11/29/21 11/29/21 Unknown History Physical Exam Vital Signs: Vital Signs: Last Vital Signs Temp 97.8 F 11/29/21 17:07 Pulse 60 11/30/21 06:34 Resp 16 11/30/21 06:34 BP 102/43 L 11/30/21 06:34 Pulse Ox 96 11/30/21 06:34 BMI result Body Mass Index 34.7 GENERAL APPEARANCE: in no acute distress, pleasant. NECK: no carotid bruit, positive jugular venous distention. SKIN: no suspicious lesions, warm and dry. HEART: no murmurs, regular rate and rhythm. LUNGS: clear to auscultation bilaterally. ABDOMEN: soft, nontender. EXTREMITIES: 1 to 2+ edema. PERIPHERAL PULSES: equal. NEUROLOGIC: No gross deficits, AAO X 3 Objective Labs and Meds Result diagrams: 11/30/21 15:18 11/30/21 05:44 Lab results: Laboratory Results - last 24 hr 11/29/21 11/29/21 11/29/21 18:08 18:08 18:08 WBC 8.4 RBC 5.07 Hgb 13.9 L Hct 44.8 MCV 88.4 MCH 27.4 MCHC 31.0 RDW 16.0 Plt Count 205 MPV 10.9 Immature Gran % (Auto) 0.2 Neut % (Auto) 78.9 H Lymph % (Auto) 9.9 L [place] % (Auto) 9.3 Eos % (Auto) 1.3 Baso % (Auto) 0.4 Lymph # (Auto) 0.8 L [place] # (Auto) 0.8 Eos # (Auto) 0.1 Baso # (Auto) 0.0 Abs Immat Gran (auto) 0.02 Absolute Neuts (auto) 6.6 Absolute Nucleated RBC 0.000 Nucleated RBC % (auto) 0.0 PT INR APTT Sodium 138 Potassium 3.9 Chloride 101 Carbon Dioxide 31 H Anion Gap 10 L BUN 19 H Creatinine 0.75 Estim Creat Clear Calc 87.1 Estimated GFR > 60 POC Glucose Random Glucose 149 H Lactic Acid Calcium 9.2 Magnesium 2.0 Total Bilirubin 0.8 Direct Bilirubin 0.3 AST 31 ALT 24 Alkaline Phosphatase 99 D Troponin I High Sens B-Natriuretic Peptide Total Protein 6.3 L Albumin 3.2 L Lipase 53 Urine Color Urine Appearance Urine pH Ur Specific [place] Urine Protein Urine Glucose (UA) Urine Ketones Urine Blood Urine Nitrite Ur Leukocyte Esterase Urine RBC Urine WBC Ur Squamous Epith Cells Urine Bacteria COVID-19 ([facility]) Negative COVID-19 Clin Com See Note 11/29/21 11/29/21 11/29/21 18:08 18:08 18:09 WBC RBC Hgb Hct MCV MCH MCHC RDW Plt Count MPV Immature Gran % (Auto) Neut % (Auto) Lymph % (Auto) [place] % (Auto) Eos % (Auto) Baso % (Auto) Lymph # (Auto) [place] # (Auto) Eos # (Auto) Baso # (Auto) Abs Immat Gran (auto) Absolute Neuts (auto) Absolute Nucleated RBC Nucleated RBC % (auto) PT 17.4 H INR 1.5 H APTT 42.1 H Sodium Potassium Chloride Carbon Dioxide Anion Gap BUN Creatinine Estim Creat Clear Calc Estimated GFR POC Glucose Random Glucose Lactic Acid Calcium Magnesium Total Bilirubin Direct Bilirubin AST ALT Alkaline Phosphatase Troponin I High Sens 29.7 B-Natriuretic Peptide 807 H Total Protein Albumin Lipase Urine Color Urine Appearance Urine pH Ur Specific [place] Urine Protein Urine Glucose (UA) Urine Ketones Urine Blood Urine Nitrite Ur Leukocyte Esterase Urine RBC Urine WBC Ur Squamous Epith Cells Urine Bacteria COVID-19 ([facility]) COVID-19 [employer] Com 11/29/21 11/29/21 11/29/21 18:09 19:34 21:15 WBC RBC Hgb Hct MCV MCH MCHC RDW Plt Count MPV Immature Gran % (Auto) Neut % (Auto) Lymph % (Auto) [place] % (Auto) Eos % (Auto) Baso % (Auto) Lymph # (Auto) [place] # (Auto) Eos # (Auto) Baso # (Auto) Abs Immat Gran (auto) Absolute Neuts (auto) Absolute Nucleated RBC Nucleated RBC % (auto) PT INR APTT Sodium Potassium Chloride Carbon Dioxide Anion Gap BUN Creatinine Estim Creat Clear Calc Estimated GFR POC Glucose Random Glucose Lactic Acid 1.0 Calcium Magnesium Total Bilirubin Direct Bilirubin AST ALT Alkaline Phosphatase Troponin I High Sens 31.7 B-Natriuretic Peptide Total Protein Albumin Lipase Urine Color YELLOW Urine Appearance CLEAR Urine pH 6.0 Ur Specific [place] 1.015 Urine Protein NEG Urine Glucose (UA) NEG Urine Ketones NEG Urine Blood 2+ H Urine Nitrite NEG Ur Leukocyte Esterase NEG Urine RBC 15-29 H Urine WBC 0 Ur Squamous Epith Cells TRACE Urine Bacteria NONE COVID-19 ([facility]) COVID-19 Clin Com 11/29/21 11/30/21 11/30/21 22:44 05:44 05:44 WBC 8.6 RBC 4.66 Hgb 12.8 L Hct 41.2 L MCV 88.4 MCH 27.5 MCHC 31.1 RDW 16.0 Plt Count 184 MPV 10.9 Immature Gran % (Auto) 0.3 Neut % (Auto) 80.3 H Lymph % (Auto) 7.6 L [place] % (Auto) 9.8 Eos % (Auto) 1.5 Baso % (Auto) 0.5 Lymph # (Auto) 0.7 L [place] # (Auto) 0.9 Eos # (Auto) 0.1 Baso # (Auto) 0.0 Abs Immat Gran (auto) 0.03 Absolute Neuts (auto) 6.9 Absolute Nucleated RBC 0.000 Nucleated RBC % (auto) 0.0 PT INR APTT Sodium 141 Potassium 3.7 Chloride 104 Carbon Dioxide 30 H Anion Gap 11 L BUN 14 Creatinine 0.73 Estim Creat Clear Calc 89.5 Estimated GFR > 60 POC Glucose 143 H Random Glucose 133 H Lactic Acid Calcium 8.6 D Magnesium Total Bilirubin Direct Bilirubin AST ALT Alkaline Phosphatase Troponin I High Sens B-Natriuretic Peptide Total Protein Albumin Lipase Urine Color Urine Appearance Urine pH Ur Specific [place] Urine Protein Urine Glucose (UA) Urine Ketones Urine Blood Urine Nitrite Ur Leukocyte Esterase Urine RBC Urine WBC Ur Squamous Epith Cells Urine Bacteria COVID-19 ([facility]IO) COVID-19 [employer] Com 11/30/21 07:11 WBC RBC Hgb Hct MCV MCH MCHC RDW Plt Count MPV Immature Gran % (Auto) Neut % (Auto) Lymph % (Auto) [place] % (Auto) Eos % (Auto) Baso % (Auto) Lymph # (Auto) [place] # (Auto) Eos # (Auto) Baso # (Auto) Abs Immat Gran (auto) Absolute Neuts (auto) Absolute Nucleated RBC Nucleated RBC % (auto) PT INR APTT Sodium Potassium Chloride Carbon Dioxide Anion Gap BUN Creatinine Estim Creat Clear Calc Estimated GFR POC Glucose 137 H Random Glucose Lactic Acid Calcium Magnesium Total Bilirubin Direct Bilirubin AST ALT Alkaline Phosphatase Troponin I High Sens B-Natriuretic Peptide Total Protein Albumin Lipase Urine Color Urine Appearance Urine pH Ur Specific [place] Urine Protein Urine Glucose (UA) Urine Ketones Urine Blood Urine Nitrite Ur Leukocyte Esterase Urine RBC Urine WBC Ur Squamous Epith Cells Urine Bacteria COVID-19 ([facility]) COVID-19 Clin Com Imaging Radiologist's impression: Impressions Scrotum Ultrasound 11/29/21 17:32 IMPRESSION: 1. Significant soft tissue thickening in the left inguinal and left scrotal regions. Correlate clinically for signs of infection (cellulitis/phlegmonous changes). 2. Unfortunately, the degree of soft tissue swelling limits assessment of the left epididymis which is not well visualized. Additionally, there is questionable decreased flow to the left testicle, although this is likely artifactual and related with the degree of soft tissue swelling. Recommend a short-term examination. 3. Normal right testicle and right epididymis. Chest X-Ray 11/29/21 17:55 IMPRESSION: Mild pulmonary vascular congestion with small bilateral pleural effusions. No overt pulmonary edema. Assessment and Plan (1) CHF (congestive heart failure): Status: Acute Plan [age] gentleman presenting with lower extremity edema. Clinically he is in heart failure. Echocardiography showing ejection fraction of 30 35%. He has background of bypass surgery. Denies any chest pain or shortness of breath otherwise. Likely has more right than left heart failure at this point. Continue the diuretics. Blood pressure control is good. Hopefully in a day or 2 he will improve and can go home. Thank you for allowing me to participate in the care of your patient. Please feel free to contact me if you have any questions. Procedures Date of Service Date of Service: 11/30/21
--- NOTE | 2021-11-30 10:59 | PC.NURSE ---
pt moved to bedside recliner w two assist, stretcher linens changed. offers no new complaints at this time. underwood continues to appear patent.
[2021-11-30 12:51] LABS: Glucose, Whole Blood 198 mg/dL (60-115)
[2021-11-30] MEDS: Insulin Lispro 100 UNIT/ML 3 ML VIAL SUBCUT (12:56)
--- NOTE | 2021-11-30 13:06 | MHC.CM.PN ---
Attempted to meet with patient in regards to discharge planning. Echo currently being performed. Will attempt to meet again.Continue to monitor for d/c needs.
[2021-11-30] MEDS: ondansetron HCL 4 MG/2 ML VIAL IVPUSH ×3 (13:51→21:36)
--- NOTE | 2021-11-30 13:54 | PC.NURSE ---
pt vomitted a small amount of bile. refused lunch and tylenol
[2021-11-30] MEDS: Pantoprazole Sodium 40 MG/10 ML VIAL IVPUSH (15:08)
[2021-11-30 15:09] VITALS: BP 106/57; PULSE 67; RESP 18; O2SAT 88; O2SAT 95
--- NOTE | 2021-11-30 15:36 | PC.NURSE ---
provider at bedside to assess pt, type and screen and occult gastric spec sent. family updated about pt status. pt to be npo att.
[2021-11-30 15:37] LABS: Hematocrit 43.4 % (42.0-52.0); Hemoglobin 13.7 g/dl (14.0-18.0); Mean Corpuscular HGB Conc 31.6 g/dl (31.0-36.0); Mean Corpuscular Hemoglobin 27.6 pg (27.0-33.0); Mean Corpuscular Volume 87.3 fL (80.0-98.0); Mean Platelet Volume 10.6 fL (9.4-12.4); Platelet Count 187 X10*3/uL (160-400); Red Blood Count 4.97 X10*6/uL (4.60-5.80); Red Cell Distribution Width 16.1 % (11.0-16.0); White Blood Count 9.9 X10*3/uL (4.8-10.8)
[2021-11-30 15:44] VITALS: BP 98/48; PULSE 59; RESP 17; TEMP 36.8; O2SAT 98
[2021-11-30 15:44] LABS: GASOB Int Neg Ctl Valid YES; GASOB Int Pos Ctl Valid YES; Occult Blood Gastric NEGATIVE (NEG)
--- NOTE | 2021-11-30 16:04 | PM.EVENT ---
Event Note Date of Service: 11/30/21 Event Note: called by RN that patient is having nausea and multiple episode of initially small amount of bilious vomiting followed by coffee-ground vomitus patient subsequently noted to be pale with drop in blood pressure 98/48. Patient complaining of abdominal pain and nausea is a poor historian on examination awake alert in no distress lungs clear to auscultation heart regular abdomen soft epigastric tenderness to palpation, no rebound, no rigidity, no guarding. Extremity positive edema assessment and plan epigastric pain with coffee-ground emesis patient on Plavix and Eliquis, will check CBC , type and screen,give IV Protonix, keep him NPO, hold Plavix and Eliquis will assess continued need for anticoagulation continue supportive care with antiemetics and PPI hypotension likely multifactorial on Lasix 40 b.i.d., low doses lisinopril 2.5 mg and Isordil 60 mg daily as well as related to multiple bouts of vomiting will hold p.m. dose of Lasix , hold IV fluid due to CHF, follow clinical course
[2021-11-30 17:50] LABS: Glucose, Whole Blood 209 mg/dL (60-115)
[2021-11-30 19:16] VITALS: BP 114/54; PULSE 62; RESP 15; TEMP 36.4; O2SAT 96
[2021-11-30 21:00] LABS: Glucose, Whole Blood 213 mg/dL (60-115)
[2021-11-30] MEDS: Bisoprolol Fumarate 5 MG TABLET PO (21:24)
[2021-11-30] MEDS: Atorvastatin Calcium 20 MG TABLET PO (21:24)
[2021-11-30] MEDS: Doxycycline Hyclate 100 MG in 0.9 % Sodium Chloride 250 ML 166.67 MG IV (21:25)
[2021-11-30] MEDS: Acetaminophen 325 MG TABLET 650 MG PO (21:36)
[2021-11-30] MEDS: Nystatin Powder 15 GM BOTTLE 1 APPL TOPICAL (21:57)
[2021-11-30 23:54] VITALS: O2SAT 95
[2021-12-01] VITALS (8 sets, daily range): BP systolic 101–135; BP diastolic 53–68; PULSE 61–73; RESP 18–20; TEMP 36.1–36.2; O2SAT 94–97
[2021-12-01] MEDS: Morphine Sulfate 4 MG/ML CARTRIDGE IVPUSH (02:26)
[2021-12-01] MEDS: polyethylene glycoL 3350 17 GM POWD.PACK PO ×2 (06:34→21:03)
[2021-12-01] MEDS: ondansetron HCL 4 MG/2 ML VIAL IVPUSH (06:34)
[2021-12-01] MEDS: Omeprazole 20 MG CAPSULE.DR PO (06:37)
[2021-12-01 08:34] LABS: Glucose, Whole Blood 155 mg/dL (60-115)
--- NOTE | 2021-12-01 10:19 | MHC.CM.PN ---
with interpertor met with pt who ststes he lives alone has health safety manager 18 hrs a week and rn 3xweek thru [facility] his health safety manager will bring nickie home he is vax x 3 and [place] [facility] [place] awa [place] his correct number is [phone]..pt uses a walker
[2021-12-01] MEDS: lisinopriL 2.5 MG TABLET PO (10:45)
[2021-12-01] MEDS: Docusate Sodium 100 MG CAPSULE PO ×2 (10:45→20:57)
[2021-12-01] MEDS: methIMAzole 5 MG TABLET 2.5 MG PO (10:46)
[2021-12-01] MEDS: Isosorbide Mononitrate 60 MG TAB.ER.24H PO (10:46)
[2021-12-01] MEDS: Cholecalciferol (Vitamin D3) 25 MCG TABLET PO (10:46)
[2021-12-01] MEDS: Doxycycline Hyclate 100 MG in 0.9 % Sodium Chloride 250 ML 166.67 MG IV ×2 (10:49→21:02)
[2021-12-01] MEDS: 0.9 % Sodium Chloride Flush 3 ML SYRINGE IVFLUSH ×3 (10:49→20:58)
[2021-12-01] MEDS: Nystatin Powder 15 GM BOTTLE 1 APPL TOPICAL ×2 (10:56→20:58)
[2021-12-01 11:11] LABS: Glucose, Whole Blood 143 mg/dL (60-115)
--- NOTE | 2021-12-01 14:56 | PM.PNCARD ---
Subjective Subjective Date of Service: 12/01/21 <JYOTI Whitney - Last Filed: 12/01/21 15:22> 12/01/21 <Leon Mercer MD - Last Filed: 12/01/21 16:31> Principal diagnosis: CHF, cmp <JYOTI Whitney - Last Filed: 12/01/21 15:22> Interval history: Cardiology follow up for CHF, CMP. Seen at 1215. Today he is observed sitting in chair. He reports breathing comfortable, no chest pains or palpitation. Still has swelling in scrotum and legs. present. <JYOTI Whitney - Last Filed: 12/01/21 15:22> Review of Systems Review of Systems as above <JYOTI Whitney - Last Filed: 12/01/21 15:22> Yes all other systems are reviewed and are negative <JYOTI Whitney - Last Filed: 12/01/21 15:22> Physical Exam Vital Signs: Last Vital Signs Temp 97.1 F 12/01/21 11:04 Pulse 61 12/01/21 11:04 Resp 18 12/01/21 11:04 BP 111/68 12/01/21 11:04 Pulse Ox 97 12/01/21 11:04 BMI result Body Mass Index 34.7 <JYOTI Whitney - Last Filed: 12/01/21 15:22> Const General: cooperative, no acute distress, alert and awake <JYOTI Whitney - Last Filed: 12/01/21 15:22> Orientation/consciousness: patient oriented x3 <JYOTI Whitney - Last Filed: 12/01/21 15:22> Neck Neck: Yes normal visual inspection and Yes JVD <JYOTI Whitney Last Filed: 12/01/21 15:22> Resp Effort & Inspection: normal respiratory effort, able to speak in complete sentences and not labored <JYOTI Whitney - Last Filed: 12/01/21 15:22> Auscultation: clear to auscultation bilaterally, rales (each base), no rhonchi and no wheezes <JAD WhitneyC - Last Filed: 12/01/21 15:22> Cardio Jugular venous distension: JVD <JAD WhitneyC - Last Filed: 12/01/21 15:22> Rate: regular rate <JAD WhitneyC - Last Filed: 12/01/21 15:22> Rhythm: regular rhythm <JAD WhitneyC - Last Filed: 12/01/21 15:22> Heart sounds: S1 normal heart sound present and S2 normal heart sound present <JAD WhitneyC - Last Filed: 12/01/21 15:22> Neuro General: patient oriented x3 <JYOTI Whitney - Last Filed: 12/01/21 15:22> Extrem Other: redness to lower legs bilaterally, open wounds noted, has tight edema of lower legs and more pitting edema to thighs. <JYOTI Whitney - Last Filed: 12/01/21 15:22> General: Yes normal to inspection <JAD WhitneyC - Last Filed: 12/01/21 15:22> Objective Labs and Meds Result diagrams: : 11/30/21 15:18 11/30/21 05:44 <JAD WhitneyC - Last Filed: 12/01/21 15:22> Lab results: Laboratory Results - last 24 hr 11/30/21 11/30/21 11/30/21 15:18 15:27 15:33 WBC 9.9 RBC 4.97 Hgb 13.7 L Hct 43.4 MCV 87.3 MCH 27.6 MCHC 31.6 RDW 16.1 H Plt Count 187 MPV 10.6 Absolute Nucleated RBC 0.000 Nucleated RBC % (auto) 0.0 POC Glucose Gastric Occult Blood NEGATIVE Blood Type O Positive Antibody Screen NEGATIVE 11/30/21 11/30/21 12/01/21 17:46 20:50 07:52 WBC RBC Hgb Hct MCV MCH MCHC RDW Plt Count MPV Absolute Nucleated RBC Nucleated RBC % (auto) POC Glucose 209 H 213 H 155 H Gastric Occult Blood Blood Type Antibody Screen 12/01/21 11:06 WBC RBC Hgb Hct MCV MCH MCHC RDW Plt Count MPV Absolute Nucleated RBC Nucleated RBC % (auto) POC Glucose 143 H Gastric Occult Blood Blood Type Antibody Screen <JYOTI Whitney - Last Filed: 12/01/21 15:22> Imaging Radiologist's impression: Impressions Abdomen/Pelvis CT 12/01/21 02:55 IMPRESSION: 1. Mild gaseous distention of the stomach. No acute findings are identified in this region. 2. Cardiomegaly with moderate-sized bilateral pleural effusions and associated dependent atelectasis. 3. Cholelithiasis without CT findings of acute cholecystitis 4. Prostatomegaly. Fleischner guidelines were followed. <JYOTI Whitney - Last Filed: 12/01/21 15:22> Progress Note: A&P Assessment and plan (1) Acute exacerbation of CHF (congestive heart failure): Status: Acute <JYOTI Whitney - Last Filed: 12/01/21 15:22> Assessment and Plan: Admit with scrotal and leg edema. BNP elevated at 807. Chest x-ray with mild pulmonary vascular congestion, small bilateral pleural effusions. Echocardiogram shows EF 30-35%, increased RV size and decreased RV systolic function, right atrium and left atrium severely dilated, RVSP 69, severe pulmonary hypertension. 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 He is being diuresed with IV Lasix 40 mg b.i.d.. Fluid balance-1 L. labs today show potassium 3.7, creatinine 0.73. Lasix is noted to be on hold for unclear reason. On exam patient does have rales in each base and ongoing pitting edema in his legs, scrotal swelling. Will restart Lasix at 40 mg IV b.i.d.. Close monitoring of electrolytes and kidney function. BNP in a.m. Strict I&O monitoring. We will follow <JYOTI Whitney - Last Filed: 12/01/21 15:22> (2) Scrotal swelling: Status: Acute <JYOTI Whitney - Last Filed: 12/01/21 15:22> (3) Cellulitis: Status: Acute <JYOTI Whitney - Last Filed: 12/01/21 15:22> Assessment and Plan: Being treated with IV antibiotics, bilateral lower leg redness with open wounds. <Christina JoseJYOTI garcia - Last Filed: 12/01/21 15:22> (4) Cardiomyopathy: Status: Acute <Christina ReneJYOTI - Last Filed: 12/01/21 15:22> Assessment and Plan: Known history of CAD with prior Coronary artery bypass grafting and AVR. He follows with Dr. Shukri Smith for cardiology. Echocardiogram as above shows reduced EF and normally functioning bioprosthetic AVR. Unknown what prior EF was at present time. His medications do include bisoprolol and lisinopril for neurohormonal modulation. These meds have been continued this admission as doses are low. No reports of chest pains. chief of safety and protection showing sinus rhythm with isolated PACs and PVCs, short an SVT runs with longest 7 beats, rate 50s to 60s. Ongoing telemetry monitoring. <JYOTI Whitney - Last Filed: 12/01/21 15:22> (5) Hx of coronary artery bypass graft: Status: Acute <Christina Ellison JYOTI Rene - Last Filed: 12/01/21 15:22> (6) CAD (coronary artery disease): Status: Acute <Christina Ellison JYOTI Rene - Last Filed: 12/01/21 15:22> Assessment and Plan: Notes do indicate that patient had coffee-ground emesis occurring last evening he was made NPO and given doses of Pepcid, pantoprazole and then started on daily omeprazole today. His usual home Eliquis and Plavix were placed on hold. Will check with hospitalist regarding further plan. Recommend restart of his usual anti coagulants as soon is able/clear by GI. <Christina Ellison JYOTI Rene - Last Filed: 12/01/21 15:22> (7) S/P AVR: Status: Acute <Christina Ellison JYOTI Rene - Last Filed: 12/01/21 15:22> Plan Seen examined at bedside. Still volume overloaded. Increasing diuretics to 80 mg b.i.d.. Has known severely reduced ejection fraction. Previous bypass and PCI I as well as TAVR. Thank you for allowing me to participate in the care of your patient. Please feel free to contact me if you have any questions. <Leon Mercer MD - Last Filed: 12/01/21 16:31> Fall Risk Details Current Medications: Current Medications Acetaminophen (Acetaminophen 325 Mg Tablet) 650 mg PO Q6H PRN PRN Reason: Pain, Mild (Pain Scale 1-3) Last Admin: 11/30/21 21:36 Dose: 650 mg Documented by: Atorvastatin Calcium (Atorvastatin Calcium 20 Mg Tablet) 20 mg PO BEDTIME [facility] [place] Last Admin: 11/30/21 21:24 Dose: 20 mg Documented by: Bisoprolol Fumarate (Bisoprolol Fumarate 5 Mg Tablet) 5 mg PO BEDTIME [facility] Last Admin: 11/30/21 21:24 Dose: 5 mg Documented by: Dextrose (Dextrose 50 % 25 Gm/50 Ml Vial) 25 gm IVPUSH Q15M PRN; Protocol PRN Reason: per Hypoglycemia Standing Ord. Docusate Sodium (Docusate Sodium 100 Mg Capsule) 100 mg PO BID [facility] [place] Last Admin: 12/01/21 10:45 Dose: 100 mg Documented by: Glucose (Glucose Gel 15 Gm Gel..Gram.) 15 gm PO Q15M PRN; Protocol PRN Reason: per Hypoglycemia Standing Ord. Doxycycline Hyclate 100 mg/ (Sodium Chloride) 250 mls @ 166.67 mls/hr IV Q12H [facility] [place] Last Infusion: 12/01/21 12:33 Dose: Infused Documented by: Insulin Glargine (Insulin Glargine,Hum.Rec.Anlog 100 Unit/Ml 10 Ml Vial) 20 unit SUBCUT BEDTIME [facility] [place] Insulin Human Lispro (Insulin Lispro 100 Unit/Ml 3 Ml Vial) 0 unit SUBCUT QIDACHS [facility] [place]; Protocol Last Admin: 12/01/21 11:15 Dose: Not Given Documented by: Isosorbide Mononitrate (Isosorbide Mononitrate 60 Mg Tab.Er.24h) 60 mg PO DAILY [facility] [place]; Protocol Last Admin: 12/01/21 10:46 Dose: 60 mg Documented by: Lisinopril (Lisinopril 2.5 Mg Tablet) 2.5 mg PO DAILY [facility] [place]; Protocol Last Admin: 12/01/21 10:45 Dose: 2.5 mg Documented by: Methimazole (Methimazole 5 Mg Tablet) 2.5 mg PO DAILY [facility] [place] Last Admin: 12/01/21 10:46 Dose: 2.5 mg Documented by: Morphine Sulfate (Morphine Sulfate 4 Mg/Ml Cartridge) 4 mg IVPUSH Q4H PRN; Protocol PRN Reason: Pain, Severe (Pain Scale 7-10) Last Admin: 12/01/21 02:26 Dose: 4 mg Documented by: Nystatin (Nystatin Powder 15 Gm Bottle) 1 appl TOPICAL BID [facility] [place]; Protocol Last Admin: 12/01/21 10:56 Dose: 1 appl Documented by: Omeprazole (Omeprazole 20 Mg Capsule.Dr) 20 mg PO DAILY@0630 [facility] [place] Last Admin: 12/01/21 06:37 Dose: 20 mg Documented by: Ondansetron HCl (Ondansetron Hcl 4 Mg/2 Ml Vial) 4 mg IVPUSH Q8H PRN PRN Reason: Nausea and Vomiting Last Admin: 12/01/21 06:34 Dose: 4 mg Documented by: Oxycodone HCl (Oxycodone Hcl Immed Release 5 Mg Tablet) 5 mg PO Q6H PRN PRN Reason: Pain, Severe (Pain Scale 7-10) Last Admin: 11/30/21 08:51 Dose: 5 mg Documented by: Polyethylene Glycol (Polyethylene Glycol 3350 17 Gm Powd.Pack) 17 gm PO BID [facility] [place] Last Admin: 12/01/21 06:34 Dose: 17 gm Documented by: Sodium Chloride (0.9 % Sodium Chloride Flush 3 Ml Syringe) 3 ml IVFLUSH QSHIFT [facility] [place] Last Admin: 12/01/21 10:49 Dose: 3 ml Documented by: Vitamin D (Cholecalciferol (Vitamin D3) 25 Mcg Tablet) 25 mcg PO DAILY [facility] [place] Last Admin: 12/01/21 10:46 Dose: 25 mcg Documented by: <JYOTI Whitney - Last Filed: 12/01/21 15:22> Time Spent With Patient Time: Total time spent is greater than 50% in coordination of care (as documented) at patient's floor/unit and/or counseling patient: <JYOTI Whitney - Last Filed: 12/01/21 15:22> Progress Note: Quality Stroke Does the patient have a stroke diagnosis?: No <JYOTI Whitney Last Filed: 12/01/21 15:22> Procedures Date of Service Date of Service: 12/01/21 <JYOTI Whitney - Last Filed: 12/01/21 15:22>
[2021-12-01 16:33] LABS: Glucose, Whole Blood 142 mg/dL (60-115)
[2021-12-01] MEDS: Furosemide 40 MG/4 ML VIAL 80 MG IVPUSH (17:22)
[2021-12-01 20:46] LABS: Glucose, Whole Blood 204 mg/dL (60-115)
[2021-12-01] MEDS: Bisoprolol Fumarate 5 MG TABLET PO (20:57)
[2021-12-01] MEDS: Atorvastatin Calcium 20 MG TABLET PO (20:57)
[2021-12-01] MEDS: Insulin Lispro 100 UNIT/ML 3 ML VIAL SUBCUT (21:04)
[2021-12-02 03:33] VITALS: BP 98/55; PULSE 58; RESP 20; TEMP 36.2; O2SAT 94
[2021-12-02] MEDS: Omeprazole 20 MG CAPSULE.DR PO (05:57)
[2021-12-02] MEDS: Morphine Sulfate 4 MG/ML CARTRIDGE IVPUSH (06:27)
[2021-12-02 07:47] LABS: MANUAL DIFF FLAG NO
[2021-12-02 07:52] LABS: Basophils Percent Auto 0.3 % (0-2); Eosinophils Absolute Auto 0.2 X10*3/uL (0.0-0.4); Eosinophils Percent Auto 3.2 % (0-4); Hematocrit 42.3 % (42.0-52.0); Hemoglobin 12.8 g/dl (14.0-18.0); Imm Gran Abs Auto 0.01 X10*3/uL (0.00-0.03); Imm Gran Pct Auto 0.1 % (0.0-0.4); Lymphocytes Absolute Auto 0.8 X10*3/uL (1.2-4.9); Lymphocytes Percent Auto 11.1 % (20-40); Mean Corpuscular HGB Conc 30.3 g/dl (31.0-36.0); Mean Corpuscular Hemoglobin 27.4 pg (27.0-33.0); Mean Corpuscular Volume 90.4 fL (80.0-98.0); Mean Platelet Volume 11.2 fL (9.4-12.4); Monocytes Absolute Auto 0.8 X10*3/uL (0.1-1.2); Monocytes Percent Auto 10.6 % (2-11); Neutrophils Absolute Auto 5.6 x10*3/uL (2.0-8.3); Neutrophils Percent Auto 74.7 % (45-73); Platelet Count 182 X10*3/uL (160-400); Red Blood Count 4.68 X10*6/uL (4.60-5.80); Red Cell Distribution Width 16.5 % (11.0-16.0); White Blood Count 7.5 X10*3/uL (4.8-10.8)
[2021-12-02 08:00] VITALS: BP 103/56; PULSE 65; RESP 20; O2SAT 91
[2021-12-02 08:25] LABS: B Type Natriuretic Peptide 378 pg/mL (<100)
[2021-12-02 08:32] LABS: Glucose, Whole Blood 122 mg/dL (60-115)
[2021-12-02 08:41] LABS: Anion Gap 9 (12-20); Blood Urea Nitrogen 15 mg/dL (9-16); Calcium 8.2 mg/dL (8.4-10.2); Carbon Dioxide 33 mmol/L (22-29); Chloride 104 mmol/L (96-108); Creatinine Clr Calc Pharmacy 88.3; Estimated Glomerular Filt Rate > 60; Glucose Random 124 mg/dL (60-115); Potassium 4.2 mmol/L (3.3-5.1); Sodium 142 mmol/L (135-145)
[2021-12-02] MEDS: methIMAzole 5 MG TABLET 2.5 MG PO (10:13)
[2021-12-02] MEDS: polyethylene glycoL 3350 17 GM POWD.PACK PO ×2 (10:15→21:06)
[2021-12-02] MEDS: 0.9 % Sodium Chloride Flush 3 ML SYRINGE IVFLUSH ×3 (10:15→21:08)
[2021-12-02] MEDS: Isosorbide Mononitrate 60 MG TAB.ER.24H PO (10:15)
[2021-12-02] MEDS: Cholecalciferol (Vitamin D3) 25 MCG TABLET PO (10:15)
[2021-12-02] MEDS: Docusate Sodium 100 MG CAPSULE PO ×2 (10:15→21:05)
[2021-12-02] MEDS: Furosemide 40 MG/4 ML VIAL 80 MG IVPUSH ×2 (10:15→18:05)
[2021-12-02] MEDS: lisinopriL 2.5 MG TABLET PO (10:15)
[2021-12-02] MEDS: Doxycycline Hyclate 100 MG in 0.9 % Sodium Chloride 250 ML 166.67 MG IV ×2 (10:16→21:05)
[2021-12-02] MEDS: Nystatin Powder 15 GM BOTTLE 1 APPL TOPICAL ×2 (10:17→21:09)
--- NOTE | 2021-12-02 10:21 | PM.PNCARD ---
Subjective Subjective Date of Service: 12/02/21 Principal diagnosis: CHF, cmp Interval history: No symptoms. Still significantly volume overloaded. Physical Exam Vital Signs: Last Vital Signs Temp 97.1 F 12/02/21 03:33 Pulse 65 12/02/21 08:00 Resp 20 12/02/21 08:00 BP 103/56 L 12/02/21 08:00 Pulse Ox 91 L 12/02/21 08:00 BMI result Body Mass Index 34.7 GENERAL APPEARANCE: in no acute distress, pleasant. NECK: no carotid bruit, positive jugular venous distention. SKIN: no suspicious lesions, warm and dry. HEART: no murmurs, regular rate and rhythm. LUNGS: clear to auscultation bilaterally. ABDOMEN: soft, nontender. EXTREMITIES:? 1 to 2+ edema. PERIPHERAL PULSES: equal. NEUROLOGIC: No gross deficits, AAO X 3 Objective Labs and Meds Result diagrams: 12/02/21 07:25 12/02/21 07:25 Lab results: Laboratory Results - last 24 hr 12/01/21 12/01/21 12/01/21 11:06 16:26 20:40 WBC RBC Hgb Hct MCV MCH MCHC RDW Plt Count MPV Immature Gran % (Auto) Neut % (Auto) Lymph % (Auto) [place] % (Auto) Eos % (Auto) Baso % (Auto) Lymph # (Auto) [place] # (Auto) Eos # (Auto) Baso # (Auto) Abs Immat Gran (auto) Absolute Neuts (auto) Absolute Nucleated RBC Nucleated RBC % (auto) Sodium Potassium Chloride Carbon Dioxide Anion Gap BUN Creatinine Estim Creat Clear Calc Estimated GFR POC Glucose 143 H 142 H 204 H Random Glucose Calcium B-Natriuretic Peptide 12/02/21 12/02/21 12/02/21 07:25 07:25 07:25 WBC 7.5 RBC 4.68 Hgb 12.8 L Hct 42.3 MCV 90.4 MCH 27.4 MCHC 30.3 L RDW 16.5 H Plt Count 182 MPV 11.2 Immature Gran % (Auto) 0.1 Neut % (Auto) 74.7 H Lymph % (Auto) 11.1 L [place] % (Auto) 10.6 Eos % (Auto) 3.2 Baso % (Auto) 0.3 Lymph # (Auto) 0.8 L [place] # (Auto) 0.8 Eos # (Auto) 0.2 Baso # (Auto) 0.0 Abs Immat Gran (auto) 0.01 Absolute Neuts (auto) 5.6 Absolute Nucleated RBC 0.000 Nucleated RBC % (auto) 0.0 Sodium 142 Potassium 4.2 Chloride 104 Carbon Dioxide 33 H Anion Gap 9 L BUN 15 Creatinine 0.74 Estim Creat Clear Calc 88.3 Estimated GFR > 60 POC Glucose Random Glucose 124 H Calcium 8.2 L B-Natriuretic Peptide 378 H 12/02/21 07:28 WBC RBC Hgb Hct MCV MCH MCHC RDW Plt Count MPV Immature Gran % (Auto) Neut % (Auto) Lymph % (Auto) [place] % (Auto) Eos % (Auto) Baso % (Auto) Lymph # (Auto) [place] # (Auto) Eos # (Auto) Baso # (Auto) Abs Immat Gran (auto) Absolute Neuts (auto) Absolute Nucleated RBC Nucleated RBC % (auto) Sodium Potassium Chloride Carbon Dioxide Anion Gap BUN Creatinine Estim Creat Clear Calc Estimated GFR POC Glucose 122 H Random Glucose Calcium B-Natriuretic Peptide Progress Note: A&P Assessment and plan (1) S/P AVR: Status: Acute (2) CAD (coronary artery disease): Status: Acute (3) CHF (congestive heart failure): Status: Acute Plan 76 year old getntleman with CAD s/p CABG and s/p AVR admitted with CHF. Still overloaded. c/w Lasix. adding 2.5 mg metolazone. Monitor electrolytes. Resume eliquis and plavix once seen by GI. He is saying he has epistaxis and he swallowed the blood. This can be one potential reason for the coffee ground vomitus. Fall Risk Details Current Medications: Current Medications Acetaminophen (Acetaminophen 325 Mg Tablet) 650 mg PO Q6H PRN PRN Reason: Pain, Mild (Pain Scale 1-3) Last Admin: 11/30/21 21:36 Dose: 650 mg Documented by: Atorvastatin Calcium (Atorvastatin Calcium 20 Mg Tablet) 20 mg PO BEDTIME [facility] Last Admin: 12/01/21 20:57 Dose: 20 mg Documented by: Bisoprolol Fumarate (Bisoprolol Fumarate 5 Mg Tablet) 5 mg PO BEDTIME [facility] Last Admin: 12/01/21 20:57 Dose: 5 mg Documented by: Dextrose (Dextrose 50 % 25 Gm/50 Ml Vial) 25 gm IVPUSH Q15M PRN; Protocol PRN Reason: per Hypoglycemia Standing Ord. Docusate Sodium (Docusate Sodium 100 Mg Capsule) 100 mg PO BID [facility] Last Admin: 12/02/21 10:15 Dose: 100 mg Documented by: Furosemide (Furosemide 40 Mg/4 Ml Vial) 80 mg IVPUSH BID@0900,1800 [facility]; Protocol Last Admin: 12/02/21 10:15 Dose: 80 mg Documented by: Glucose (Glucose Gel 15 Gm Gel..Gram.) 15 gm PO Q15M PRN; Protocol PRN Reason: per Hypoglycemia Standing Ord. Doxycycline Hyclate 100 mg/ (Sodium Chloride) 250 mls @ 166.67 mls/hr IV Q12H [facility] Last Admin: 12/02/21 10:16 Dose: 166.67 mls/hr Documented by: Insulin Glargine (Insulin Glargine,Hum.Rec.Anlog 100 Unit/Ml 10 Ml Vial) 20 unit SUBCUT BEDTIME [facility] Insulin Human Lispro (Insulin Lispro 100 Unit/Ml 3 Ml Vial) 0 unit SUBCUT QIDACHS [facility]; Protocol Last Admin: 12/02/21 07:30 Dose: Not Given Documented by: Isosorbide Mononitrate (Isosorbide Mononitrate 60 Mg Tab.Er.24h) 60 mg PO DAILY [facility]; Protocol Last Admin: 12/02/21 10:15 Dose: 60 mg Documented by: Lisinopril (Lisinopril 2.5 Mg Tablet) 2.5 mg PO DAILY [facility]; Protocol Last Admin: 12/02/21 10:15 Dose: 2.5 mg Documented by: Methimazole (Methimazole 5 Mg Tablet) 2.5 mg PO DAILY [facility] Last Admin: 12/02/21 10:13 Dose: 2.5 mg Documented by: Metolazone (Metolazone 2.5 Mg Tablet) 2.5 mg PO ONCE ONE Stop: 12/02/21 17:31 Morphine Sulfate (Morphine Sulfate 4 Mg/Ml Cartridge) 4 mg IVPUSH Q4H PRN; Protocol PRN Reason: Pain, Severe (Pain Scale 7-10) Last Admin: 12/02/21 06:27 Dose: 4 mg Documented by: Nystatin (Nystatin Powder 15 Gm Bottle) 1 appl TOPICAL BID [facility]; Protocol Last Admin: 12/02/21 10:17 Dose: 1 appl Documented by: Omeprazole (Omeprazole 20 Mg Capsule.Dr) 20 mg PO DAILY@0630 [facility] Last Admin: 12/02/21 05:57 Dose: 20 mg Documented by: Ondansetron HCl (Ondansetron Hcl 4 Mg/2 Ml Vial) 4 mg IVPUSH Q8H PRN PRN Reason: Nausea and Vomiting Last Admin: 12/01/21 06:34 Dose: 4 mg Documented by: Oxycodone HCl (Oxycodone Hcl Immed Release 5 Mg Tablet) 5 mg PO Q6H PRN PRN Reason: Pain, Severe (Pain Scale 7-10) Last Admin: 11/30/21 08:51 Dose: 5 mg Documented by: Polyethylene Glycol (Polyethylene Glycol 3350 17 Gm Powd.Pack) 17 gm PO BID [facility] Last Admin: 12/02/21 10:15 Dose: 17 gm Documented by: Sodium Chloride (0.9 % Sodium Chloride Flush 3 Ml Syringe) 3 ml IVFLUSH QSHIFT [facility] Last Admin: 12/02/21 10:15 Dose: 3 ml Documented by: Vitamin D (Cholecalciferol (Vitamin D3) 25 Mcg Tablet) 25 mcg PO DAILY [facility] Last Admin: 12/02/21 10:15 Dose: 25 mcg Documented by: Time Spent With Patient Time: Total time spent is greater than 50% in coordination of care (as documented) at patient's floor/unit and/or counseling patient: Progress Note: Quality Stroke Does the patient have a stroke diagnosis?: No Procedures Date of Service Date of Service: 12/02/21
[2021-12-02 11:22] LABS: Glucose, Whole Blood 129 mg/dL (60-115)
[2021-12-02 11:45] VITALS: BP 99/47; PULSE 56; RESP 20; TEMP 36.7; O2SAT 96
--- NOTE | 2021-12-02 13:39 | P.PNIM_ITS ---
Subjective Subjective Date of Service: 12/02/21 Interval History: sitting on chair eating breakfast, denies chest pain, no palpitation, denies shortness of breath, complaining of a scrotal discomfort, denies fever chills no acute events, no nausea no vomiting. Review of Systems Review of Systems: Yes all other systems are reviewed and are negative Physical Exam Vital Signs: Vital Signs: Last Vital Signs Temp 98.1 F 12/02/21 11:45 Pulse 56 12/02/21 11:45 Resp 20 12/02/21 11:45 BP 99/47 L 12/02/21 11:45 Pulse Ox 96 12/02/21 11:45 BMI result Body Mass Index 34.7 Const: Other: General Awake alert x3, in no acute distress. Neck supple, + JVD. CVS regular rate rhythm, Respiratory lungs bibasilar rales, no respiratory distress, no wheeze, no rhonchi. Gastrointestinal abdomen soft, nontender, bowel sounds audible,no guarding , no rigidity. Extremities bilateral edema. open wounds left leg Navarro in place with dark urine, positive scrotal swelling Neuro nonfocal , speech clear. psych appropriate affect Objective Data Active Medications Acetaminophen (Acetaminophen 325 Mg Tablet) 650 mg PO Q6H PRN PRN Reason: Pain, Mild (Pain Scale 1-3) Last Admin: 11/30/21 21:36 Dose: 650 mg Documented by: NIXON Atorvastatin Calcium (Atorvastatin Calcium 20 Mg Tablet) 20 mg PO BEDTIME [facility] Last Admin: 12/01/21 20:57 Dose: 20 mg Documented by: MICHAEL Bisoprolol Fumarate (Bisoprolol Fumarate 5 Mg Tablet) 5 mg PO BEDTIME [facility] Last Admin: 12/01/21 20:57 Dose: 5 mg Documented by: MICHAEL Dextrose (Dextrose 50 % 25 Gm/50 Ml Vial) 25 gm IVPUSH Q15M PRN; Protocol PRN Reason: per Hypoglycemia Standing Ord. Docusate Sodium (Docusate Sodium 100 Mg Capsule) 100 mg PO BID [facility] Last Admin: 12/02/21 10:15 Dose: 100 mg Documented by: ELVIA Furosemide (Furosemide 40 Mg/4 Ml Vial) 80 mg IVPUSH BID@0900,1800 [facility]; Protocol Last Admin: 12/02/21 10:15 Dose: 80 mg Documented by: ELVIA Glucose (Glucose Gel 15 Gm Gel..Gram.) 15 gm PO Q15M PRN; Protocol PRN Reason: per Hypoglycemia Standing Ord. Doxycycline Hyclate 100 mg/ (Sodium Chloride) 250 mls @ 166.67 mls/hr IV Q12H [facility] Last Infusion: 12/02/21 13:01 Dose: 0 mls/hr Documented by: ELVIA Insulin Glargine (Insulin Glargine,Hum.Rec.Anlog 100 Unit/Ml 10 Ml Vial) 20 unit SUBCUT BEDTIME [facility] Insulin Human Lispro (Insulin Lispro 100 Unit/Ml 3 Ml Vial) 0 unit SUBCUT QIDACHS [facility]; Protocol Last Admin: 12/02/21 11:19 Dose: Not Given Documented by: ELVIA Non-Admin Reason: No Insulin Coverage Isosorbide Mononitrate (Isosorbide Mononitrate 60 Mg Tab.Er.24h) 60 mg PO DAILY [facility]; Protocol Last Admin: 12/02/21 10:15 Dose: 60 mg Documented by: ELVIA Lisinopril (Lisinopril 2.5 Mg Tablet) 2.5 mg PO DAILY [facility]; Protocol Last Admin: 12/02/21 10:15 Dose: 2.5 mg Documented by: ELVIA Methimazole (Methimazole 5 Mg Tablet) 2.5 mg PO DAILY [facility] Last Admin: 12/02/21 10:13 Dose: 2.5 mg Documented by: ELVIA Metolazone (Metolazone 2.5 Mg Tablet) 2.5 mg PO ONCE ONE Stop: 12/02/21 17:31 Morphine Sulfate (Morphine Sulfate 4 Mg/Ml Cartridge) 4 mg IVPUSH Q4H PRN; Protocol PRN Reason: Pain, Severe (Pain Scale 7-10) Last Admin: 12/02/21 06:27 Dose: 4 mg Documented by: MICHAEL Nystatin (Nystatin Powder 15 Gm Bottle) 1 appl TOPICAL BID [facility]; Protocol Last Admin: 12/02/21 10:17 Dose: 1 appl Documented by: ELVIA Omeprazole (Omeprazole 20 Mg Capsule.) 20 mg PO DAILY@0630 [facility] Last Admin: 12/02/21 05:57 Dose: 20 mg Documented by: MICHAEL Ondansetron HCl (Ondansetron Hcl 4 Mg/2 Ml Vial) 4 mg IVPUSH Q8H PRN PRN Reason: Nausea and Vomiting Last Admin: 12/01/21 06:34 Dose: 4 mg Documented by: NIXON Oxycodone HCl (Oxycodone Hcl Immed Release 5 Mg Tablet) 5 mg PO Q6H PRN PRN Reason: Pain, Severe (Pain Scale 7-10) Last Admin: 11/30/21 08:51 Dose: 5 mg Documented by: ALO Polyethylene Glycol (Polyethylene Glycol 3350 17 Gm Powd.Pack) 17 gm PO BID [facility] Last Admin: 12/02/21 10:15 Dose: 17 gm Documented by: ELVIA Sodium Chloride (0.9 % Sodium Chloride Flush 3 Ml Syringe) 3 ml IVFLUSH QSHIFT [facility] Last Admin: 12/02/21 10:15 Dose: 3 ml Documented by: ELVIA Vitamin D (Cholecalciferol (Vitamin D3) 25 Mcg Tablet) 25 mcg PO DAILY [facility] Last Admin: 12/02/21 10:15 Dose: 25 mcg Documented by: ELVIA Labs CBC & Chem 7: 12/02/21 07:25 12/02/21 07:25 Labs: Laboratory Results - last 24 hr 12/01/21 12/01/21 12/02/21 16:26 20:40 07:25 MCV 90.4 MCH 27.4 MCHC 30.3 L RDW 16.5 H Plt Count 182 MPV 11.2 Immature Gran % (Auto) 0.1 Neut % (Auto) 74.7 H Lymph % (Auto) 11.1 L [place] % (Auto) 10.6 Eos % (Auto) 3.2 Baso % (Auto) 0.3 Lymph # (Auto) 0.8 L [place] # (Auto) 0.8 Eos # (Auto) 0.2 Baso # (Auto) 0.0 Abs Immat Gran (auto) 0.01 Absolute Neuts (auto) 5.6 Absolute Nucleated RBC 0.000 Nucleated RBC % (auto) 0.0 Anion Gap Estim Creat Clear Calc Estimated GFR POC Glucose 142 H 204 H Random Glucose Calcium B-Natriuretic Peptide 12/02/21 12/02/21 12/02/21 07:25 07:25 07:28 MCV MCH MCHC RDW Plt Count MPV Immature Gran % (Auto) Neut % (Auto) Lymph % (Auto) [place] % (Auto) Eos % (Auto) Baso % (Auto) Lymph # (Auto) [place] # (Auto) Eos # (Auto) Baso # (Auto) Abs Immat Gran (auto) Absolute Neuts (auto) Absolute Nucleated RBC Nucleated RBC % (auto) Anion Gap 9 L Estim Creat Clear Calc 88.3 Estimated GFR > 60 POC Glucose 122 H Random Glucose 124 H Calcium 8.2 L B-Natriuretic Peptide 378 H 12/02/21 11:17 MCV MCH MCHC RDW Plt Count MPV Immature Gran % (Auto) Neut % (Auto) Lymph % (Auto) [place] % (Auto) Eos % (Auto) Baso % (Auto) Lymph # (Auto) [place] # (Auto) Eos # (Auto) Baso # (Auto) Abs Immat Gran (auto) Absolute Neuts (auto) Absolute Nucleated RBC Nucleated RBC % (auto) Anion Gap Estim Creat Clear Calc Estimated GFR POC Glucose 129 H Random Glucose Calcium B-Natriuretic Peptide Microbiology Microbiology Results: Microbiology 11/29/21 18:25 Blood Culture - Preliminary Blood - Venous No growth after 48 hours. 11/29/21 18:09 Blood Culture - Preliminary Blood - Venous No growth after 48 hours. Assessment and Plan (1) Scrotal swelling: Status: Acute (2) Cellulitis: Status: Acute (3) Acute exacerbation of CHF (congestive heart failure): Status: Acute (4) Acute epididymitis: Status: Acute Plan 76-year-old male with past medical history of CAD status post CABG, hypertension, Graves, diabetes who presents to the hospital with complaints of lower extremity swelling as well as scrotal swelling # acute on chronic CHF exacerbation with low EF and right-sided heart failure, patient asymptomatic, persistent scrotal swelling echo showed EF 30-35%, increased right ventricular size and decreased right ventricular systolic function, severely dilated left and right atrium and severe pulmonary hypertension persistent fluid overload,Continue IV Lasix 80 mg b.i.d. Cardio recommended 1 dose of metolazone follow I/O, weight and salt intake stable BMP, BNP trending down 807 to 378, follow BMP # cellulitis, abdominal wall area, going to groin, with fungal element. continue Doxy, add Nystatin powerder # scrotal swelling , swelling is mostly related to heart failure and fungal rash in the area, continue diuresis and Abx as above # CAD status post CABG AVR and stent placement - was on Eliquis and Plavix, being followed by Dr. Smith ( cardiologists in [place]) currently on hold due to coffee-ground emesis, patient also informed about epistaxis likely emesis related to swallowing blood no recurrent episodes of coffee-ground emesis, hematocrit is stable, will resume Eliquis and await GI input before resuming Plavix. # coffee ground emesis, patient initially noted to have bilious vomiting follo wed by couple episodes of coffee-ground emesis hematocrit remains stable Eliquis and Plavix was held patient placed on omeprazole await GI input # diabetes, blood sugars stable, continue diabetic diet , Lantus and insulin sliding scale - hold metformin # Graves disease - continue methimazole # hypertension - on low-dose beta-blockers and lisinopril for neurohormonal modulation. DVT prophylaxis:? resume Eliquis. Inpatient : d/t need for IV diuretics for heart failure, further work up and IV Abx for cellulitis as above Quality Stroke Does the patient have a stroke diagnosis?: No VTE Prior VTE?: No VTE Risk Level:: Medical - moderate - high VTE Device Contraindication: Treatment Not Indicated VTE Drug Contraindication: N/A - Med Ordered
[2021-12-02 15:54] VITALS: BP 92/47; PULSE 65; RESP 18; TEMP 36.4; O2SAT 96
--- NOTE | 2021-12-02 17:14 | P.EN_ITS ---
Event Note Date of Service: 12/02/21 Event Note: GI Consult-Full note dictated-Hx via patient with emergency medical technician/driver, and from the EMR. Imp: Reported coffee grounds emesis on 11/30. This was initially a bilious vomitus. There was no hematemesis. The patient describes epistaxis on 11/30 with swallowing of blood before the coffee grounds emesis actually began. He denies any previous nor subsequent GI symptoms, nor any hx of ulcer disease. He has had no further signs of bleeding. His BUN has been normal and his Hgb has been stable. I suspect the coffee grounds emesis was in relation to the swallowing of blood, as opposed to any primary UGI pathology based on his clinical history and labs. Rec: Given the clinical history and his medical conditions, I would hold off on an upper endoscopy given what I feel would be a low yield. I think his blood thinners can be resumed. I would continue him on an oral PPI. Please contact me if he has any further signs of bleeding and we can always reassess things. D/W patient in detail. Thanks
[2021-12-02 17:17] LABS: Glucose, Whole Blood 181 mg/dL (60-115)
[2021-12-02] MEDS: Insulin Lispro 100 UNIT/ML 3 ML VIAL SUBCUT ×2 (18:06→21:07)
[2021-12-02] MEDS: metOLazone 2.5 MG TABLET PO (18:07)
[2021-12-02 19:06] VITALS: BP 95/47; PULSE 67; RESP 18; TEMP 36.1; O2SAT 93
[2021-12-02 20:50] LABS: Glucose, Whole Blood 146 mg/dL (60-115)
[2021-12-02] MEDS: Apixaban 5 MG TABLET PO (21:05)
[2021-12-02] MEDS: Bisoprolol Fumarate 5 MG TABLET PO (21:06)
[2021-12-02] MEDS: Atorvastatin Calcium 20 MG TABLET PO (21:06)
[2021-12-02 22:34] LABS: Glucose, Whole Blood 149 mg/dL (60-115)
[2021-12-02] MEDS: oxyCODONE HCl Immed Release 5 MG TABLET PO (23:34)
[2021-12-03] VITALS (7 sets, daily range): BP systolic 96–127; BP diastolic 47–67; PULSE 55–87; RESP 15–18; TEMP 35.6–37.1; O2SAT 94–98
--- NOTE | 2021-12-03 01:31 | CONS_ITS ---
DATE OF SERVICE: 12/02/2021 REASON FOR CONSULTATION: Coffee-ground emesis. HISTORY OF PRESENT ILLNESS: This has been obtained from the patient with a medical legal investigator and from the medical record. The patient is a 76-year-old male with multiple underlying medical problems including coronary artery disease and previous aortic valve replacement. He is on chronic blood thinners at home including clopidogrel and apixaban. The patient was admitted here for treatment of cellulitis in the lower abdominal wall. The patient describes an episode of epistaxis on November 30. 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 In any event when he had the epistaxis on November 30, he described swallowing blood. He then apparently had episodes of vomiting, which initially were bilious, but then had some coffee-ground material in them. There was no hematemesis. He denies any previous history of GI bleeding. He denies any history of ulcer disease in himself. He does not use any NSAIDs nor any aspirin products from what I can see on his medication list. The patient denies any problems such as significant heartburn, dysphagia, anorexia, nor early satiety. He has not noticed any melena nor hematochezia. Since the episode on November 30, he has had no further vomiting and there has been no report of any signs of bleeding. His blood count on the morning of November 30 was 12.8 and repeat that same day was 13.7. Hemoglobin today was 12.8. His BUN has also been stable with a BUN of 9 today and a BUN of 14 on November 30. His blood thinners were held for about 24 hours and he was started on omeprazole. He currently has been eating comfortably. He denies any abdominal pain. CURRENT MEDICATIONS: Include acetaminophen, Eliquis, atorvastatin, Zebeta, vitamin D, Colace, IV doxycycline, Lasix, insulin, isosorbide, lisinopril, methimazole, Zaroxolyn, omeprazole, Zofran, oxycodone, and MiraLAX. PAST MEDICAL HISTORY: Coronary artery bypass. Aortic valve replacement by what sounds like TAVR. Coronary artery stent placement. He has medical issues including diabetes, congestive heart failure, Graves disease, vitamin D deficiency, chronic edema with left lower leg wound that has been undergoing treatment with the wound care center and the [facility]. He denies any other surgeries besides the heart surgery. SOCIAL HISTORY: He does not smoke nor use any alcohol. He is single. FAMILY HISTORY: Noncontributory. REVIEW OF SYSTEMS: CONSTITUTIONAL: He does feel somewhat weak. SKIN: He has had issues with the infection as above. CARDIAC: No chest pain. PULMONARY: No coughing or hemoptysis. GI: As above. PHYSICAL EXAMINATION: GENERAL: The patient is alert elderly male, sitting up in a chair, eating. HEENT: Anicteric sclerae. SKIN: Warm and dry. ABDOMEN: Soft, nondistended, and nontender. LABORATORY DATA: As above. Normal electrolytes. BUN 15, creatinine 0.7. White blood cell count 7.5, hemoglobin 12.8, platelets 182,000. PT on November 29 was 17.4 with INR 1.5. Of note, the occult blood testing of the vomitus from November 30 was negative in the lab. He did have a CT scan of the abdomen and pelvis on November 29, that does not show any acute findings within the abdomen. He does have gallstones, but there was no evidence of any cholecystitis. IMPRESSION: Given the patient's clinical history, the epistaxis, swallowing of blood, and then subsequent coffee-ground emesis, this certainly seems consistent with the coffee-grounds being from that of the swallowed blood as opposed to a primary upper GI problem. I think the yield on endoscopy at this point would be quite low. He is not offering any GI symptoms and has not had any further signs of bleeding. He has also had a stable hemoglobin and normal BUN, which would go against significant upper GI bleeding as well. At this point, I would recommend that he be kept on a p.o. PPI while he is on his blood thinners, although I think he most likely does not have any significant upper GI pathology. However, I would hold off on the upper endoscopy since I think the yield on that would be very low, and given his multiple medical problems, it would not be worthwhile to put him through the procedure unless it was absolutely needed. Certainly, if he shows evidence of recurrent coffee-ground emesis or other signs of bleeding, I would be happy to re-evaluate him and then possibly have him undergo endoscopy at that time. Please call me if I can be of any further assistance in that regard. This has been discussed with the patient and he is comfortable with that plan. Thank you for the consultation. MD RAMANA Schaeffer/ZEKE / [id number] MTDD
[2021-12-03] MEDS: Omeprazole 20 MG CAPSULE.DR PO (06:06)
[2021-12-03 07:06] LABS: Anion Gap 13 (12-20); Blood Urea Nitrogen 18 mg/dL (9-16); Carbon Dioxide 30 mmol/L (22-29); Chloride 99 mmol/L (96-108); Creatinine Clr Calc Pharmacy 87.1; Estimated Glomerular Filt Rate > 60; Glucose Random 105 mg/dL (60-115); Potassium 3.5 mmol/L (3.3-5.1); Sodium 138 mmol/L (135-145)
[2021-12-03 07:47] LABS: Glucose, Whole Blood 122 mg/dL (60-115)
[2021-12-03] MEDS: Doxycycline Hyclate 100 MG in 0.9 % Sodium Chloride 250 ML 166.67 MG IV ×2 (10:29→20:32)
[2021-12-03] MEDS: Furosemide 40 MG/4 ML VIAL 80 MG IVPUSH (10:34)
[2021-12-03] MEDS: lisinopriL 2.5 MG TABLET PO (10:35)
[2021-12-03] MEDS: Apixaban 5 MG TABLET PO ×2 (10:35→20:36)
[2021-12-03] MEDS: methIMAzole 5 MG TABLET 2.5 MG PO (10:35)
[2021-12-03] MEDS: 0.9 % Sodium Chloride Flush 3 ML SYRINGE IVFLUSH ×2 (10:35→16:33)
[2021-12-03] MEDS: Docusate Sodium 100 MG CAPSULE PO ×2 (10:36→20:36)
[2021-12-03] MEDS: Isosorbide Mononitrate 60 MG TAB.ER.24H PO (10:36)
[2021-12-03] MEDS: Cholecalciferol (Vitamin D3) 25 MCG TABLET PO (10:36)
[2021-12-03] MEDS: polyethylene glycoL 3350 17 GM POWD.PACK PO ×2 (10:36→20:36)
[2021-12-03] MEDS: Nystatin Powder 15 GM BOTTLE 1 APPL TOPICAL ×2 (10:36→20:37)
[2021-12-03 11:37] LABS: Glucose, Whole Blood 194 mg/dL (60-115)
[2021-12-03] MEDS: Insulin Lispro 100 UNIT/ML 3 ML VIAL SUBCUT ×3 (11:58→20:36)
--- NOTE | 2021-12-03 12:18 | PM.PNCARD ---
Subjective Subjective Date of Service: 12/03/21 Principal diagnosis: CHF, cmp Interval history: Improving. on IV diuretics. Physical Exam Vital Signs: Last Vital Signs Temp 98.4 F 12/03/21 11:31 Pulse 58 12/03/21 11:31 Resp 18 12/03/21 11:31 BP 106/60 12/03/21 11:31 Pulse Ox 97 12/03/21 11:31 BMI result Body Mass Index 34.7 GENERAL APPEARANCE: in no acute distress, pleasant. NECK: no carotid bruit, + jugular venous distention. SKIN: no suspicious lesions, warm and dry. HEART: no murmurs, regular rate and rhythm. LUNGS: clear to auscultation bilaterally. ABDOMEN: soft, nontender. EXTREMITIES:? 1 + edema. Wounds left LE. PERIPHERAL PULSES: equal. NEUROLOGIC: No gross deficits, AAO X 3. Objective Labs and Meds Result diagrams: 12/02/21 07:25 12/03/21 06:00 Lab results: Laboratory Results - last 24 hr 12/02/21 12/02/21 12/02/21 17:03 20:44 22:30 Sodium Potassium Chloride Carbon Dioxide Anion Gap BUN Creatinine Estim Creat Clear Calc Estimated GFR POC Glucose 181 H 146 H 149 H Random Glucose Calcium 12/03/21 12/03/21 12/03/21 06:00 07:38 11:33 Sodium 138 Potassium 3.5 Chloride 99 Carbon Dioxide 30 H Anion Gap 13 BUN 18 H Creatinine 0.75 Estim Creat Clear Calc 87.1 Estimated GFR > 60 POC Glucose 122 H 194 H Random Glucose 105 Calcium 8.0 L Progress Note: A&P Assessment and plan (1) S/P AVR: Status: Acute (2) Hx of coronary artery bypass graft: Status: Acute (3) CHF (congestive heart failure): Status: Acute (4) Acute exacerbation of CHF (congestive heart failure): Status: Acute Plan 76-year-old gentleman with acute on chronic congestive heart failure. He has a known history of cardiomyopathy with ejection fraction 25%. Clinically volume overloaded. Continue with the diuretics. Would need wound care input for the leg. Resume his Eliquis and Plavix. Thank you for allowing me to participate in the care of your patient. Please feel free to contact me if you have any questions. Fall Risk Details Current Medications: Current Medications Acetaminophen (Acetaminophen 325 Mg Tablet) 650 mg PO Q6H PRN PRN Reason: Pain, Mild (Pain Scale 1-3) Last Admin: 11/30/21 21:36 Dose: 650 mg Documented by: Apixaban (Apixaban 5 Mg Tablet) 5 mg PO BID [facility] Last Admin: 12/03/21 10:35 Dose: 5 mg Documented by: Atorvastatin Calcium (Atorvastatin Calcium 20 Mg Tablet) 20 mg PO BEDTIME [facility] Last Admin: 12/02/21 21:06 Dose: 20 mg Documented by: Bisoprolol Fumarate (Bisoprolol Fumarate 5 Mg Tablet) 5 mg PO BEDTIME [facility] Last Admin: 12/02/21 21:06 Dose: 5 mg Documented by: Dextrose (Dextrose 50 % 25 Gm/50 Ml Vial) 25 gm IVPUSH Q15M PRN; Protocol PRN Reason: per Hypoglycemia Standing Ord. Docusate Sodium (Docusate Sodium 100 Mg Capsule) 100 mg PO BID [facility] Last Admin: 12/03/21 10:36 Dose: 100 mg Documented by: Furosemide (Furosemide 40 Mg/4 Ml Vial) 80 mg IVPUSH BID@0900,1800 [facility]; Protocol Last Admin: 12/03/21 10:34 Dose: 80 mg Documented by: Glucose (Glucose Gel 15 Gm Gel..Gram.) 15 gm PO Q15M PRN; Protocol PRN Reason: per Hypoglycemia Standing Ord. Doxycycline Hyclate 100 mg/ (Sodium Chloride) 250 mls @ 166.67 mls/hr IV Q12H [facility] Last Infusion: 12/03/21 12:15 Dose: Infused Documented by: Insulin Glargine (Insulin Glargine,Hum.Rec.Anlog 100 Unit/Ml 10 Ml Vial) 20 unit SUBCUT BEDTIME [facility] Insulin Human Lispro (Insulin Lispro 100 Unit/Ml 3 Ml Vial) 0 unit SUBCUT QIDACHS [facility]; Protocol Last Admin: 12/03/21 11:58 Dose: 2 unit Documented by: Isosorbide Mononitrate (Isosorbide Mononitrate 60 Mg Tab.Er.24h) 60 mg PO DAILY [facility]; Protocol Last Admin: 12/03/21 10:36 Dose: 60 mg Documented by: Lisinopril (Lisinopril 2.5 Mg Tablet) 2.5 mg PO DAILY [facility]; Protocol Last Admin: 12/03/21 10:35 Dose: 2.5 mg Documented by: Methimazole (Methimazole 5 Mg Tablet) 2.5 mg PO DAILY [facility] Last Admin: 12/03/21 10:35 Dose: 2.5 mg Documented by: Morphine Sulfate (Morphine Sulfate 4 Mg/Ml Cartridge) 4 mg IVPUSH Q4H PRN; Protocol PRN Reason: Pain, Severe (Pain Scale 7-10) Last Admin: 12/02/21 06:27 Dose: 4 mg Documented by: Nystatin (Nystatin Powder 15 Gm Bottle) 1 appl TOPICAL BID [facility]; Protocol Last Admin: 12/03/21 10:36 Dose: 1 appl Documented by: Omeprazole (Omeprazole 20 Mg Capsule.Dr) 20 mg PO DAILY@0630 [facility] Last Admin: 12/03/21 06:06 Dose: 20 mg Documented by: Ondansetron HCl (Ondansetron Hcl 4 Mg/2 Ml Vial) 4 mg IVPUSH Q8H PRN PRN Reason: Nausea and Vomiting Last Admin: 12/01/21 06:34 Dose: 4 mg Documented by: Oxycodone HCl (Oxycodone Hcl Immed Release 5 Mg Tablet) 5 mg PO Q6H PRN PRN Reason: Pain, Severe (Pain Scale 7-10) Last Admin: 12/02/21 23:34 Dose: 5 mg Documented by: Polyethylene Glycol (Polyethylene Glycol 3350 17 Gm Powd.Pack) 17 gm PO BID [facility] Last Admin: 12/03/21 10:36 Dose: 17 gm Documented by: Sodium Chloride (0.9 % Sodium Chloride Flush 3 Ml Syringe) [facility] Last Admin: 12/03/21 10:35 Dose: 3 ml Documented by: Vitamin D (Cholecalciferol (Vitamin D3) 25 Mcg Tablet) 25 mcg PO DAILY [facility] Last Admin: 12/03/21 10:36 Dose: 25 mcg Documented by: Time Spent With Patient Time: Total time spent is greater than 50% in coordination of care (as documented) at patient's floor/unit and/or counseling patient: Progress Note: Quality Stroke Does the patient have a stroke diagnosis?: No Procedures Date of Service Date of Service: 12/03/21
[2021-12-03 15:35] LABS: Glucose, Whole Blood 179 mg/dL (60-115)
--- NOTE | 2021-12-03 16:53 | HO.PM.IMPN ---
Subjective Subjective Date of Service: 12/03/21 Interval History: acute on chronic CHF exacerbation with low EF and right-sided heart failure Review of Systems has some complaining of a scrotal discomfort, still has leg edema, denies chest pain or shortness of breath or fever or chills, no acute events, no nausea no vomiting. Physical Exam Vital Signs: Vital Signs: Last Vital Signs Temp 98.7 F 12/03/21 15:07 Pulse 59 12/03/21 15:07 Resp 18 12/03/21 15:07 BP 97/54 L 12/03/21 15:07 Pulse Ox 96 12/03/21 15:07 BMI result Body Mass Index 34.7 General? Awake alert x3, in no acute distress.? heart: regular rate rhythm, + JVD. chest: lungs? bibasilar rales, no respiratory distress, no wheeze, no rhonchi. GI: abdomen soft, nontender, bowel sounds audible,no guarding , no rigidity. Extremities? bilateral edema. open wounds left leg Navarro in place with dark urine, positive scrotal swelling Neuro nonfocal , speech clear. psych appropriate affect Objective Data Active Medications Acetaminophen (Acetaminophen 325 Mg Tablet) 650 mg PO Q6H PRN PRN Reason: Pain, Mild (Pain Scale 1-3) Last Admin: 11/30/21 21:36 Dose: 650 mg Documented by: NIXON Apixaban (Apixaban 5 Mg Tablet) 5 mg PO BID [facility] Last Admin: 12/03/21 10:35 Dose: 5 mg Documented by: ABHIJEET Atorvastatin Calcium (Atorvastatin Calcium 20 Mg Tablet) 20 mg PO BEDTIME [facility] Last Admin: 12/02/21 21:06 Dose: 20 mg Documented by: MICHAEL Bisoprolol Fumarate (Bisoprolol Fumarate 5 Mg Tablet) 5 mg PO BEDTIME [facility] Last Admin: 12/02/21 21:06 Dose: 5 mg Documented by: MICHAEL Dextrose (Dextrose 50 % 25 Gm/50 Ml Vial) 25 gm IVPUSH Q15M PRN; Protocol PRN Reason: per Hypoglycemia Standing Ord. Docusate Sodium (Docusate Sodium 100 Mg Capsule) 100 mg PO BID [facility] Last Admin: 12/03/21 10:36 Dose: 100 mg Documented by: ABHIJEET Furosemide (Furosemide 40 Mg/4 Ml Vial) 80 mg IVPUSH BID@0900,1800 [facility]; Protocol Last Admin: 12/03/21 10:34 Dose: 80 mg Documented by: ABHIJEET Glucose (Glucose Gel 15 Gm Gel..Gram.) 15 gm PO Q15M PRN; Protocol PRN Reason: per Hypoglycemia Standing Ord. Doxycycline Hyclate 100 mg/ (Sodium Chloride) 250 mls @ 166.67 mls/hr IV Q12H [facility] Last Infusion: 12/03/21 12:15 Dose: 0 mls/hr Documented by: ABHIJEET Insulin Glargine (Insulin Glargine,Hum.Rec.Anlog 100 Unit/Ml 10 Ml Vial) 20 unit SUBCUT BEDTIME [facility] Insulin Human Lispro (Insulin Lispro 100 Unit/Ml 3 Ml Vial) 0 unit SUBCUT QIDACHS [facility]; Protocol Last Admin: 12/03/21 16:39 Dose: 2 unit Documented by: KENIA Isosorbide Mononitrate (Isosorbide Mononitrate 60 Mg Tab.Er.24h) 60 mg PO DAILY [facility]; Protocol Last Admin: 12/03/21 10:36 Dose: 60 mg Documented by: ABHIJEET Lisinopril (Lisinopril 2.5 Mg Tablet) 2.5 mg PO DAILY [facility]; Protocol Last Admin: 12/03/21 10:35 Dose: 2.5 mg Documented by: ABHIJEET Methimazole (Methimazole 5 Mg Tablet) 2.5 mg PO DAILY [facility] Last Admin: 12/03/21 10:35 Dose: 2.5 mg Documented by: ABHIJEET Morphine Sulfate (Morphine Sulfate 4 Mg/Ml Cartridge) 4 mg IVPUSH Q4H PRN; Protocol PRN Reason: Pain, Severe (Pain Scale 7-10) Last Admin: 12/02/21 06:27 Dose: 4 mg Documented by: MICHAEL Nystatin (Nystatin Powder 15 Gm Bottle) 1 appl TOPICAL BID [facility]; Protocol Last Admin: 12/03/21 10:36 Dose: 1 appl Documented by: ABHIJEET Omeprazole (Omeprazole 20 Mg Capsule.) 20 mg PO DAILY@0630 [facility] Last Admin: 12/03/21 06:06 Dose: 20 mg Documented by: MICHAEL Ondansetron HCl (Ondansetron Hcl 4 Mg/2 Ml Vial) 4 mg IVPUSH Q8H PRN PRN Reason: Nausea and Vomiting Last Admin: 12/01/21 06:34 Dose: 4 mg Documented by: NIXON Oxycodone HCl (Oxycodone Hcl Immed Release 5 Mg Tablet) 5 mg PO Q6H PRN PRN Reason: Pain, Severe (Pain Scale 7-10) Last Admin: 12/02/21 23:34 Dose: 5 mg Documented by: MICHAEL Polyethylene Glycol (Polyethylene Glycol 3350 17 Gm Powd.Pack) 17 gm PO BID [facility] Last Admin: 12/03/21 10:36 Dose: 17 gm Documented by: ABHIJEET Sodium Chloride (0.9 % Sodium Chloride Flush 3 Ml Syringe) 3 ml IVFLUSH QSHIFT [facility] Last Admin: 12/03/21 16:33 Dose: 3 ml Documented by: KENIA Vitamin D (Cholecalciferol (Vitamin D3) 25 Mcg Tablet) 25 mcg PO DAILY [facility] Last Admin: 12/03/21 10:36 Dose: 25 mcg Documented by: ABHIJEET Labs CBC & Chem 7: 12/02/21 07:25 12/03/21 06:00 Labs: Laboratory Results - last 24 hr 11/29/21 11/30/21 12/02/21 18:08 05:44 07:25 Anion Gap BUN 19 H 14 15 Estim Creat Clear Calc Estimated GFR POC Glucose Random Glucose Calcium 12/02/21 12/02/21 12/02/21 17:03 20:44 22:30 Anion Gap BUN Estim Creat Clear Calc Estimated GFR POC Glucose 181 H 146 H 149 H Random Glucose Calcium 12/03/21 12/03/21 12/03/21 06:00 07:38 11:33 Anion Gap 13 BUN 18 H Estim Creat Clear Calc 87.1 Estimated GFR > 60 POC Glucose 122 H 194 H Random Glucose 105 Calcium 8.0 L 12/03/21 15:31 Anion Gap BUN Estim Creat Clear Calc Estimated GFR POC Glucose 179 H Random Glucose Calcium Assessment and Plan (1) Cellulitis: Status: Acute (2) Acute exacerbation of CHF (congestive heart failure): Status: Acute Plan 76-year-old male with past medical history of CAD status post CABG, hypertension, Graves, diabetes who presents to the hospital with complaints of lower extremity swelling as well as scrotal swelling # acute on chronic CHF exacerbation with low EF and right-sided heart failure, ?? patient asymptomatic, persistent scrotal and leg swelling ?? echo showed EF 30-35%, increased right ventricular size and decreased right ventricular systolic function, severely dilated left and right atrium and severe pulmonary hypertension ?? persistent fluid overload,Continue IV Lasix diuresis ?? follow I/O, weight and salt intake ?? stable BMP, BNP trending down 807 to 378, follow BMP 2. cellulitis, abdominal wall area, going to groin, with fungal element. ? ? continue Doxy, add Nystatin powerder 3.scrotal swelling , swelling is mostly related to heart failure? and fungal rash in the area, ?? continue? diuresis and Abx as above 4. CAD status post CABG ? AVR and stent placement -? was on Eliquis and Plavix, being followed by Dr. Smith ( cardiologists in [place]) currently on hold due to coffee-ground emesis, patient also informed about epistaxis likely emesis related to swallowing blood ??seen by GI: no recurrent episodes of coffee-ground emesis, hematocrit is stable, will resume Eliquis and Plavix. on omeprazole 5. diabetes,? blood sugars stable, continue diabetic diet , Lantus and insulin sliding scale - hold metformin ? 6.Graves disease - continue methimazole 7. hypertension -? on low-dose beta-blockers and lisinopril for neurohormonal modulation. DVT prophylaxis:? resume Eliquis. Inpatient : d/t need for IV diuretics for heart failure, further work up and IV Abx for cellulitis as above Quality Stroke Does the patient have a stroke diagnosis?: No VTE Prior VTE?: No VTE Risk Level:: Medical - moderate - high VTE Device Contraindication: Treatment Not Indicated VTE Drug Contraindication: N/A - Med Ordered
[2021-12-03 19:59] LABS: Glucose, Whole Blood 192 mg/dL (60-115)
[2021-12-03] MEDS: Bisoprolol Fumarate 5 MG TABLET PO (20:36)
[2021-12-03] MEDS: Atorvastatin Calcium 20 MG TABLET PO (20:36)
[2021-12-04] VITALS (7 sets, daily range): BP systolic 100–114; BP diastolic 50–68; PULSE 58–63; RESP 16–18; TEMP 36.3–36.8; O2SAT 95–98
[2021-12-04] MEDS: 0.9 % Sodium Chloride Flush 3 ML SYRINGE IVFLUSH ×5 (01:10→21:34)
[2021-12-04] MEDS: Omeprazole 20 MG CAPSULE.DR PO (05:37)
[2021-12-04 06:24] LABS: Anion Gap 13 (12-20); Blood Urea Nitrogen 18 mg/dL (9-16); Calcium 8.7 mg/dL (8.4-10.2); Carbon Dioxide 31 mmol/L (22-29); Chloride 96 mmol/L (96-108); Creatinine Clr Calc Pharmacy 82.7; Estimated Glomerular Filt Rate > 60; Glucose Random 131 mg/dL (60-115); Potassium 3.6 mmol/L (3.3-5.1); Sodium 136 mmol/L (135-145)
[2021-12-04 07:29] LABS: Glucose, Whole Blood 117 mg/dL (60-115)
--- NOTE | 2021-12-04 10:03 | P.PNCA_ITS ---
Subjective Subjective Date of Service: 12/04/21 Principal diagnosis: CHF, cmp Interval history: Patient states that he is feeling much better. Shortness of breath is improved. No angina. No significant leg swelling or any other complaints. Otherwise, he states he is okay. Review of Systems Review of Systems Yes all other systems are reviewed and are negative Constitutional: Reports as per HPI Eyes: Reports as per HPI Reports as per HPI Cardiovascular: Reports as per HPI, Denies acrocyanosis, Denies cool extremities, Denies chest pain, Denies leg edema, Denies lightheadedness, Denies palpitations and Denies dyspnea Respiratory: Reports as per HPI, Reports no additional respiratory complaints an d Denies dyspnea Gastrointestinal: Reports as per HPI and Reports no additional gastrointestinal complaints Genitourinary: Reports no additional male genitourinary complaints and Reports as per HPI Musculoskeletal: Reports no additional musculoskeletal complaints and Reports as per HPI Skin/Breast: Reports system reviewed and no additional complaints, except as docu Reports system reviewed and no additional complaints, except as documented and Reports as per HPI Psychiatric: Reports no additional psychiatric complaints and Reports as per HPI Endocrine: Reports no additional endocrine complaints, Reports as per HPI and Denies palpitations Hematologic/Lymphatic: Reports no additional hematologic/lymphatic complaints and Reports as per HPI Allergic/Immunologic: Reports no additional allergic/immunologic complaints and Reports as per HPI Physical Exam Vital Signs: Last Vital Signs Temp 97.3 F 12/04/21 07:21 Pulse 58 12/04/21 07:21 Resp 18 12/04/21 07:21 BP 108/56 L 12/04/21 07:21 Pulse Ox 95 12/04/21 07:21 BMI result Body Mass Index 34.7 Const General: comfortable HEENT Other: Unremarkable Head: Yes normal to inspection Ears: external ears normal General nose exam: Normal external nose present Face and sinus: Yes normal facial exam Mouth: oropharynx normal Neck Neck: Yes normal visual inspection Chest Chest palpation & inspection: normal inspection of the chest Resp Auscultation: clear to auscultation bilaterally Cardio Palpation: normal PMI Heart sounds: S1 normal heart sound present, S2 normal heart sound present, no gallops, Murmur heart sound present (2/6 BONNIE aortic area) and no rubs GI Palpation (GI): Soft to palpation Back/Spine/Pelvis Other: unremarkable Skin General skin exam: no rashes or lesions noted Neuro Cognition (Neuro): normal cognition Extrem General: Yes normal to inspection Psych Mental Status: mental status grossly normal Objective Labs and Meds Result diagrams: 12/02/21 07:25 12/04/21 05:45 Lab results: Laboratory Results - last 24 hr 12/03/21 12/03/21 12/03/21 11:33 15:31 19:55 Sodium Potassium Chloride Carbon Dioxide Anion Gap BUN Creatinine Estim Creat Clear Calc Estimated GFR POC Glucose 194 H 179 H 192 H Random Glucose Calcium 12/04/21 12/04/21 05:45 07:20 Sodium 136 Potassium 3.6 Chloride 96 Carbon Dioxide 31 H Anion Gap 13 BUN 18 H Creatinine 0.79 Estim Creat Clear Calc 82.7 Estimated GFR > 60 POC Glucose 117 H Random Glucose 131 H Calcium 8.7 D Progress Note: A&P Assessment and plan (1) Acute on chronic systolic and diastolic heart failure, NYHA class 3: Status: Acute (2) Pulmonary hypertension: Status: Acute (3) Acute right ventricular heart failure: Status: Acute (4) S/P AVR: Status: Acute (5) Hx of coronary artery bypass graft: Status: Acute Plan Recent echocardiogram reviewed. LVEF was 30-35%. There is restrictive filling pattern. Arteries also dilated with moderately diminished function. Suspected normally function bioprosthetic valve. Moderate mitral annular calcification. Severe pulmonary hypertension. EKG with sinus rhythm; LVH; PVC. High sensitivity troponins are on the upper end of normal but with still within range. Initial cardiac BNP was 107 but then improved to 378. Clinically, he still seems to have some volume overload. May remain on IV Lasix. So far, he is negative more than 5 L. Fall Risk Details Current Medications: Current Medications Acetaminophen (Acetaminophen 325 Mg Tablet) 650 mg PO Q6H PRN PRN Reason: Pain, Mild (Pain Scale 1-3) Last Admin: 11/30/21 21:36 Dose: 650 mg Documented by: Apixaban (Apixaban 5 Mg Tablet) 5 mg PO BID [facility] Last Admin: 12/03/21 20:36 Dose: 5 mg Documented by: Atorvastatin Calcium (Atorvastatin Calcium 20 Mg Tablet) 20 mg PO BEDTIME [facility] Last Admin: 12/03/21 20:36 Dose: 20 mg Documented by: Bisoprolol Fumarate (Bisoprolol Fumarate 5 Mg Tablet) 5 mg PO BEDTIME [facility] Last Admin: 12/03/21 20:36 Dose: 5 mg Documented by: Clopidogrel Bisulfate (Clopidogrel Bisulfate 75 Mg Tablet) 75 mg PO DAILY [facility] Dextrose (Dextrose 50 % 25 Gm/50 Ml Vial) 25 gm IVPUSH Q15M PRN; Protocol PRN Reason: per Hypoglycemia Standing Ord. Docusate Sodium (Docusate Sodium 100 Mg Capsule) 100 mg PO BID [facility] Last Admin: 12/03/21 20:36 Dose: 100 mg Documented by: Furosemide (Furosemide 40 Mg/4 Ml Vial) 80 mg IVPUSH BID@0900,1800 [facility]; Protocol Last Admin: 12/03/21 10:34 Dose: 80 mg Documented by: Glucose (Glucose Gel 15 Gm Gel..Gram.) 15 gm PO Q15M PRN; Protocol PRN Reason: per Hypoglycemia Standing Ord. Doxycycline Hyclate 100 mg/ (Sodium Chloride) 250 mls @ 166.67 mls/hr IV Q12H [facility] Last Infusion: 12/03/21 22:15 Dose: Infused Documented by: Insulin Glargine (Insulin Glargine,Hum.Rec.Anlog 100 Unit/Ml 10 Ml Vial) 20 unit SUBCUT BEDTIME [facility] Insulin Human Lispro (Insulin Lispro 100 Unit/Ml 3 Ml Vial) 0 unit SUBCUT QIDACHS [facility]; Protocol Last Admin: 12/04/21 08:09 Dose: Not Given Documented by: Isosorbide Mononitrate (Isosorbide Mononitrate 60 Mg Tab.Er.24h) 60 mg PO DAILY [facility]; Protocol Last Admin: 12/03/21 10:36 Dose: 60 mg Documented by: Lisinopril (Lisinopril 2.5 Mg Tablet) 2.5 mg PO DAILY [facility]; Protocol Last Admin: 12/03/21 10:35 Dose: 2.5 mg Documented by: Methimazole (Methimazole 5 Mg Tablet) 2.5 mg PO DAILY [facility] Last Admin: 12/03/21 10:35 Dose: 2.5 mg Documented by: Morphine Sulfate (Morphine Sulfate 4 Mg/Ml Cartridge) 4 mg IVPUSH Q4H PRN; Protocol PRN Reason: Pain, Severe (Pain Scale 7-10) Last Admin: 12/02/21 06:27 Dose: 4 mg Documented by: Nystatin (Nystatin Powder 15 Gm Bottle) 1 appl TOPICAL BID [facility]; Protocol Last Admin: 12/03/21 20:37 Dose: 1 appl Documented by: Omeprazole (Omeprazole 20 Mg Capsule.Dr) 20 mg PO DAILY@0630 [facility] Last Admin: 12/04/21 05:37 Dose: 20 mg Documented by: Ondansetron HCl (Ondansetron Hcl 4 Mg/2 Ml Vial) 4 mg IVPUSH Q8H PRN PRN Reason: Nausea and Vomiting Last Admin: 12/01/21 06:34 Dose: 4 mg Documented by: Oxycodone HCl (Oxycodone Hcl Immed Release 5 Mg Tablet) 5 mg PO Q6H PRN PRN Reason: Pain, Severe (Pain Scale 7-10) Last Admin: 12/02/21 23:34 Dose: 5 mg Documented by: Polyethylene Glycol (Polyethylene Glycol 3350 17 Gm Powd.Pack) 17 gm PO BID [facility] Last Admin: 12/03/21 20:36 Dose: 17 gm Documented by: Sodium Chloride (0.9 % Sodium Chloride Flush 3 Ml Syringe) 3 ml IVFLUSH QSHIFT [facility] Last Admin: 12/04/21 01:10 Dose: 3 ml Documented by: Vitamin D (Cholecalciferol (Vitamin D3) 25 Mcg Tablet) 25 mcg PO DAILY [facility] Last Admin: 12/03/21 10:36 Dose: 25 mcg Documented by: Time Spent With Patient Time: Total time spent is greater than 50% in coordination of care (as documented) at patient's floor/unit and/or counseling patient: Progress Note: Quality Stroke Does the patient have a stroke diagnosis?: No Procedures Date of Service Date of Service: 12/04/21
[2021-12-04] MEDS: Apixaban 5 MG TABLET PO ×2 (10:13→21:34)
[2021-12-04] MEDS: Clopidogrel Bisulfate 75 MG TABLET PO (10:14)
[2021-12-04] MEDS: methIMAzole 5 MG TABLET 2.5 MG PO (10:14)
[2021-12-04] MEDS: Furosemide 40 MG/4 ML VIAL 80 MG IVPUSH ×2 (10:14→18:09)
[2021-12-04] MEDS: Cholecalciferol (Vitamin D3) 25 MCG TABLET PO (10:14)
[2021-12-04] MEDS: Docusate Sodium 100 MG CAPSULE PO ×2 (10:14→21:35)
[2021-12-04] MEDS: Isosorbide Mononitrate 60 MG TAB.ER.24H PO (10:15)
[2021-12-04] MEDS: Nystatin Powder 15 GM BOTTLE 1 APPL TOPICAL ×2 (10:15→21:34)
[2021-12-04] MEDS: Doxycycline Hyclate 100 MG in 0.9 % Sodium Chloride 250 ML 166.67 MG IV ×2 (11:03→21:01)
[2021-12-04 11:20] LABS: Glucose, Whole Blood 199 mg/dL (60-115)
[2021-12-04] MEDS: Insulin Lispro 100 UNIT/ML 3 ML VIAL SUBCUT ×3 (12:10→21:34)
--- NOTE | 2021-12-04 12:46 | PC.NURSE ---
Skin/wound assessment completed today. Patient has 3 venous stasis ulcers to left lower leg. Wounds cleanse with wound cleanser then silver alginate applied to wound beds covered with non woven gauze and roll gauze to be done daily. Patient also has very dry skin to bilateral feet and legs, Sween 24 moisturizer cream applied to bilateral feet and legs. Left leg is red and swollen due to cellulitis.
--- NOTE | 2021-12-04 12:51 | HO.PM.IMPN ---
Subjective Subjective Date of Service: 12/04/21 Interval History: acute on chronic CHF exacerbation with low EF and right-sided heart failure Review of Systems has some?leg edema ,some scrotal discomfort, JVD,? denies chest pain or shortness of breath or fever or chills, no acute events, no nausea no vomiting. Physical Exam Vital Signs: Vital Signs: Last Vital Signs Temp 97.8 F 12/04/21 11:05 Pulse 60 12/04/21 11:05 Resp 18 12/04/21 11:05 BP 104/59 L 12/04/21 11:05 Pulse Ox 98 12/04/21 11:05 BMI result Body Mass Index 34.7 General? Awake alert x3, in no acute distress.? heart: regular rate rhythm, + JVD. chest: lungs? bibasilar rales, no respiratory distress, no wheeze, no rhonchi. GI: abdomen soft, nontender, bowel sounds audible,no guarding , no rigidity. Extremities? bilateral edema. open wounds left leg Navarro in place with dark urine, positive scrotal swelling Neuro nonfocal , speech clear. psych appropriate affect Objective Data Active Medications Acetaminophen (Acetaminophen 325 Mg Tablet) 650 mg PO Q6H PRN PRN Reason: Pain, Mild (Pain Scale 1-3) Last Admin: 11/30/21 21:36 Dose: 650 mg Documented by: NIXON Apixaban (Apixaban 5 Mg Tablet) 5 mg PO BID [facility] Last Admin: 12/04/21 10:13 Dose: 5 mg Documented by: ABHIJEET Atorvastatin Calcium (Atorvastatin Calcium 20 Mg Tablet) 20 mg PO BEDTIME [facility] Last Admin: 12/03/21 20:36 Dose: 20 mg Documented by: KENIA Bisoprolol Fumarate (Bisoprolol Fumarate 5 Mg Tablet) 5 mg PO BEDTIME [facility] Last Admin: 12/03/21 20:36 Dose: 5 mg Documented by: KENIA Clopidogrel Bisulfate (Clopidogrel Bisulfate 75 Mg Tablet) 75 mg PO DAILY [facility] Last Admin: 12/04/21 10:14 Dose: 75 mg Documented by: ABHIJEET Dextrose (Dextrose 50 % 25 Gm/50 Ml Vial) 25 gm IVPUSH Q15M PRN; Protocol PRN Reason: per Hypoglycemia Standing Ord. Docusate Sodium (Docusate Sodium 100 Mg Capsule) 100 mg PO BID [facility] Last Admin: 12/04/21 10:14 Dose: 100 mg Documented by: ABHIJEET Furosemide (Furosemide 40 Mg/4 Ml Vial) 80 mg IVPUSH BID@0900,1800 [facility]; Protocol Last Admin: 12/04/21 10:14 Dose: 80 mg Documented by: ABHIJEET Glucose (Glucose Gel 15 Gm Gel..Gram.) 15 gm PO Q15M PRN; Protocol PRN Reason: per Hypoglycemia Standing Ord. Doxycycline Hyclate 100 mg/ (Sodium Chloride) 250 mls @ 166.67 mls/hr IV Q12H [facility] Last Admin: 12/04/21 11:03 Dose: 166.67 mls/hr Documented by: ABHIJEET Insulin Glargine (Insulin Glargine,Hum.Rec.Anlog 100 Unit/Ml 10 Ml Vial) 20 unit SUBCUT BEDTIME [facility] Insulin Human Lispro (Insulin Lispro 100 Unit/Ml 3 Ml Vial) 0 unit SUBCUT QIDACHS [facility]; Protocol Last Admin: 12/04/21 12:10 Dose: 2 unit Documented by: ABHIJEET Isosorbide Mononitrate (Isosorbide Mononitrate 60 Mg Tab.Er.24h) 60 mg PO DAILY [facility]; Protocol Last Admin: 12/04/21 10:15 Dose: 60 mg Documented by: ABHIJEET Lisinopril (Lisinopril 2.5 Mg Tablet) 2.5 mg PO DAILY [facility]; Protocol Last Admin: 12/03/21 10:35 Dose: 2.5 mg Documented by: ABHIJEET Methimazole (Methimazole 5 Mg Tablet) 2.5 mg PO DAILY [facility] Last Admin: 12/04/21 10:14 Dose: 2.5 mg Documented by: ABHIJEET Morphine Sulfate (Morphine Sulfate 4 Mg/Ml Cartridge) 4 mg IVPUSH Q4H PRN; Protocol PRN Reason: Pain, Severe (Pain Scale 7-10) Last Admin: 12/02/21 06:27 Dose: 4 mg Documented by: MICHAEL Nystatin (Nystatin Powder 15 Gm Bottle) 1 appl TOPICAL BID [facility]; Protocol Last Admin: 12/04/21 10:15 Dose: 1 appl Documented by: ABHIJEET Omeprazole (Omeprazole 20 Mg Capsule.Dr) 20 mg PO DAILY@0630 [facility] Last Admin: 12/04/21 05:37 Dose: 20 mg Documented by: MINNIE Ondansetron HCl (Ondansetron Hcl 4 Mg/2 Ml Vial) 4 mg IVPUSH Q8H PRN PRN Reason: Nausea and Vomiting Last Admin: 12/01/21 06:34 Dose: 4 mg Documented by: NIXON Oxycodone HCl (Oxycodone Hcl Immed Release 5 Mg Tablet) 5 mg PO Q6H PRN PRN Reason: Pain, Severe (Pain Scale 7-10) Last Admin: 12/02/21 23:34 Dose: 5 mg Documented by: MICHAEL Polyethylene Glycol (Polyethylene Glycol 3350 17 Gm Powd.Pack) 17 gm PO BID [facility] Last Admin: 12/04/21 11:06 Dose: Not Given Documented by: ABHIJEET Non-Admin Reason: Patient Refused Sodium Chloride (0.9 % Sodium Chloride Flush 3 Ml Syringe) 3 ml IVFLUSH QSHIFT [facility] Last Admin: 12/04/21 10:14 Dose: 3 ml Documented by: ABHIJEET Vitamin D (Cholecalciferol (Vitamin D3) 25 Mcg Tablet) 25 mcg PO DAILY [facility] Last Admin: 12/04/21 10:14 Dose: 25 mcg Documented by: ABHIJEET Labs CBC & Chem 7: 12/02/21 07:25 12/04/21 05:45 Labs: Laboratory Results - last 24 hr 12/03/21 12/03/21 12/04/21 15:31 19:55 05:45 Anion Gap 13 Estim Creat Clear Calc 82.7 Estimated GFR > 60 POC Glucose 179 H 192 H Random Glucose 131 H Calcium 8.7 D 12/04/21 12/04/21 07:20 11:07 Anion Gap Estim Creat Clear Calc Estimated GFR POC Glucose 117 H 199 H Random Glucose Calcium Assessment and Plan (1) Acute right ventricular heart failure: Status: Acute (2) Cellulitis: Status: Acute Plan 76-year-old male with past medical history of CAD status post CABG, hypertension, Graves, diabetes who presents to the hospital with complaints of lower extremity swelling as well as scrotal swelling 1. acute on chronic CHF exacerbation with low EF and right-sided heart failure, ?? patient asymptomatic, persistent scrotal and leg swelling ?? echo showed EF 30-35%, increased right ventricular size and decreased right ventricular systolic function, severely dilated left and right atrium and severe pulmonary hypertension ?? persistent fluid overload,Continue IV Lasix diuresis ?? follow I/O around 5 liter neg, weight and salt intake ?? stable BMP, BNP trending down 807 to 378, follow BMP cardiology follow up-continue current iv lasix. 2. cellulitis, abdominal wall area, going to groin, with fungal element. ? ? continue Doxy, add Nystatin powerder 3.scrotal swelling , swelling is mostly related to heart failure? and fungal rash in the area, ?? continue? diuresis and Abx as above 4. CAD status post CABG ? AVR and stent placement -? was on Eliquis and Plavix, being followed by Dr. Smith ( cardiologists in [place]) currently on hold due to coffee-ground emesis, patient also informed about epistaxis likely emesis related to swallowing blood ??seen by GI: no recurrent episodes of coffee-ground emesis, hematocrit is stable, will resume Eliquis and Plavix. ?on omeprazole 5. diabetes,? blood sugars stable, continue diabetic diet , Lantus and insulin sliding scale - hold metformin ? 6.Graves disease - continue methimazole 7. hypertension -? on low-dose beta-blockers and lisinopril for neurohormonal modulation. DVT prophylaxis:? resume Eliquis. Inpatient : d/t need for IV diuretics for heart failure, further work up and IV Abx for cellulitis as above Quality Stroke Does the patient have a stroke diagnosis?: No VTE Prior VTE?: No VTE Risk Level:: Medical - moderate - high VTE Device Contraindication: Treatment Not Indicated VTE Drug Contraindication: N/A - Med Ordered
--- NOTE | 2021-12-04 14:09 | P.CNID_ITS ---
History of Present Illness Data of Consult Service Date: 12/04/21 Requesting physician: Casie Rowe Primary Care Provider: MD ELY Burger Reason for consult: abdominal wall redness and penile and scrotal redness He presents with one week discomfort abdomen and groin area. He has swelling and redness in that area and has initially fungal distribution irritation. He has improved now. He has CHF. Review of Systems Review of Systems: Yes all other systems are reviewed and are negative PMFSH Past Medical History Medical History CHF (congestive heart failure) Graves disease History of coronary artery disease Multinodular goiter Vitamin D deficiency Family History Family History Father Cancer Mother No problems noted. Family history: reviewed and not pertinent Surgical History Surgical History Hx of coronary artery bypass graft Social History Social History Alcohol intake: current Alcohol intake frequency: does not drink Patient Tobacco Use Status: Never used Tobacco service: No Meds Allergies Allergy/AdvReac Type Severity Reaction Status Date / Time No Known Allergies Allergy Mild N/A Verified 11/29/21 17:09 Active Medications: Current Medications Acetaminophen (Acetaminophen 325 Mg Tablet) 650 mg PO Q6H PRN PRN Reason: Pain, Mild (Pain Scale 1-3) Last Admin: 11/30/21 21:36 Dose: 650 mg Documented by: Apixaban (Apixaban 5 Mg Tablet) 5 mg PO BID [facility] Last Admin: 12/04/21 10:13 Dose: 5 mg Documented by: Atorvastatin Calcium (Atorvastatin Calcium 20 Mg Tablet) 20 mg PO BEDTIME [facility] Last Admin: 12/03/21 20:36 Dose: 20 mg Documented by: Bisoprolol Fumarate (Bisoprolol Fumarate 5 Mg Tablet) 5 mg PO BEDTIME [facility] Last Admin: 12/03/21 20:36 Dose: 5 mg Documented by: Clopidogrel Bisulfate (Clopidogrel Bisulfate 75 Mg Tablet) 75 mg PO DAILY [facility] Last Admin: 12/04/21 10:14 Dose: 75 mg Documented by: Dextrose (Dextrose 50 % 25 Gm/50 Ml Vial) 25 gm IVPUSH Q15M PRN; Protocol PRN Reason: per Hypoglycemia Standing Ord. Docusate Sodium (Docusate Sodium 100 Mg Capsule) 100 mg PO BID [facility] Last Admin: 12/04/21 10:14 Dose: 100 mg Documented by: Furosemide (Furosemide 40 Mg/4 Ml Vial) 80 mg IVPUSH BID@0900,1800 [facility]; Protocol Last Admin: 12/04/21 10:14 Dose: 80 mg Documented by: Glucose (Glucose Gel 15 Gm Gel..Gram.) 15 gm PO Q15M PRN; Protocol PRN Reason: per Hypoglycemia Standing Ord. Doxycycline Hyclate 100 mg/ (Sodium Chloride) 250 mls @ 166.67 mls/hr IV Q12H [facility] Last Infusion: 12/04/21 13:30 Dose: Infused Documented by: Insulin Glargine (Insulin Glargine,Hum.Rec.Anlog 100 Unit/Ml 10 Ml Vial) 20 unit SUBCUT BEDTIME [facility] Insulin Human Lispro (Insulin Lispro 100 Unit/Ml 3 Ml Vial) 0 unit SUBCUT QIDACHS [facility]; Protocol Last Admin: 12/04/21 12:10 Dose: 2 unit Documented by: Isosorbide Mononitrate (Isosorbide Mononitrate 60 Mg Tab.Er.24h) 60 mg PO DAILY [facility]; Protocol Last Admin: 12/04/21 10:15 Dose: 60 mg Documented by: Lisinopril (Lisinopril 2.5 Mg Tablet) 2.5 mg PO DAILY [facility]; Protocol Last Admin: 12/03/21 10:35 Dose: 2.5 mg Documented by: Methimazole (Methimazole 5 Mg Tablet) 2.5 mg PO DAILY [facility] Last Admin: 12/04/21 10:14 Dose: 2.5 mg Documented by: Morphine Sulfate (Morphine Sulfate 4 Mg/Ml Cartridge) 4 mg IVPUSH Q4H PRN; Protocol PRN Reason: Pain, Severe (Pain Scale 7-10) Last Admin: 12/02/21 06:27 Dose: 4 mg Documented by: Nystatin (Nystatin Powder 15 Gm Bottle) 1 appl TOPICAL BID [facility]; Protocol Last Admin: 12/04/21 10:15 Dose: 1 appl Documented by: Omeprazole (Omeprazole 20 Mg Capsule.) 20 mg PO DAILY@0630 [facility] Last Admin: 12/04/21 05:37 Dose: 20 mg Documented by: Ondansetron HCl (Ondansetron Hcl 4 Mg/2 Ml Vial) 4 mg IVPUSH Q8H PRN PRN Reason: Nausea and Vomiting Last Admin: 12/01/21 06:34 Dose: 4 mg Documented by: Oxycodone HCl (Oxycodone Hcl Immed Release 5 Mg Tablet) 5 mg PO Q6H PRN PRN Reason: Pain, Severe (Pain Scale 7-10) Last Admin: 12/02/21 23:34 Dose: 5 mg Documented by: Polyethylene Glycol (Polyethylene Glycol 3350 17 Gm Powd.Pack) 17 gm PO BID [facility] Last Admin: 12/04/21 11:06 Dose: Not Given Documented by: Sodium Chloride (0.9 % Sodium Chloride Flush 3 Ml Syringe) [address] [facility] Last Admin: 12/04/21 10:14 Dose: 3 ml Documented by: Vitamin D (Cholecalciferol (Vitamin D3) 25 Mcg Tablet) 25 mcg PO DAILY [facility] Last Admin: 12/04/21 10:14 Dose: 25 mcg Documented by: Home Medications Medication Instructions Recorded Confirmed Last Taken Type acetaminophen 650 mg 1,300 mg PO Q8H PRN 06/10/20 11/29/21 Unknown History tablet,extended release apixaban 5 mg tablet 5 mg PO BID 06/10/20 11/29/21 Unknown History bisoprolol fumarate 5 mg tablet 5 mg PO BEDTIME 06/10/20 11/29/21 Unknown History blood sugar diagnostic #10 ea 06/10/20 12/19/20 Unknown History blood-glucose meter #1 ea 06/10/20 12/19/20 Unknown History docusate sodium 100 mg capsule 100 mg PO BID 06/10/20 11/29/21 Unknown History isosorbide mononitrate 60 mg 60 mg PO [facility] 06/10/20 11/29/21 Unknown History tablet,extended release 24 hr lancets 33 gauge #100 ea 06/10/20 12/19/20 Unknown History lisinopril 2.5 mg tablet 2.5 mg PO QAM 06/10/20 11/29/21 Unknown History metformin 500 mg tablet,extended 500 mg PO DAILY@1700 06/10/20 11/29/21 Unknown History release 24 hr pen needle, diabetic 32 gauge x #50 ea 06/10/20 12/19/20 Unknown History rosuvastatin 40 mg tablet 40 mg PO BEDTIME 06/10/20 11/29/21 Unknown History clopidogrel 75 mg tablet 75 mg PO DAILY 06/13/20 11/29/21 Unknown History insulin glargine 100 unit/mL (3 20 unit SUBCUT BEDTIME ml 12/19/20 11/29/21 Unknown History mL) subcutaneous pen torsemide 20 mg tablet 20 mg PO DAILY@1200 10/25/21 11/29/21 Unknown History torsemide 20 mg tablet 40 mg PO DAILY 11/29/21 11/29/21 Unknown History Physical Exam Vital Signs: Vital Signs: Last Vital Signs Temp 97.8 F 12/04/21 11:05 Pulse 60 12/04/21 11:05 Resp 18 12/04/21 11:05 BP 104/59 L 12/04/21 11:05 Pulse Ox 98 12/04/21 11:05 BMI result Body Mass Index 34.7 Const: General: cooperative HEENT: Head: Yes normal to inspection Mouth: Normal oral and palatal mucosa present Resp: Effort & Inspection: normal respiratory effort Cardio: Rate: regular rate Rhythm: regular rhythm GI: Palpation (GI): Soft to palpation and nontender : Other: resolving erythema penile area resolving erythema abdomen and scrotum some intertriginal inflammation Results Labs CBC & Chem 7: 12/02/21 07:25 12/04/21 05:45 Labs: BMP 12/04/21 05:45 Sodium 136 Potassium 3.6 Chloride 96 Carbon Dioxide 31 H BUN 18 H Creatinine 0.79 Calcium 8.7 D Microbiology Microbiology Results: Microbiology 11/29/21 18:25 Blood - Venous Blood Culture - Preliminary No growth after 48 hours. 11/29/21 18:09 Blood - Venous Blood Culture - Preliminary No growth after 48 hours. Assessment and Plan (1) Scrotal swelling: Status: Acute (2) Cellulitis: Status: Acute He has probable staph or strep added to fungal inflammation. CHF likely caused swelling Plan Antifungal powder prn need. Po Doxycycline for 10 days. Reduce edema.
--- NOTE | 2021-12-04 14:59 | MHC.CM.PN ---
Male 76 DX CHF Consults ID Abdominal wall scrotal swelling and redness, Doxy ordered. Cardiac consult HF management. GI consult for GIB. DP Home with resumption of [facility] [employer] [employer] services. [employer] will provide transport @ [place].
[2021-12-04 16:19] LABS: Glucose, Whole Blood 197 mg/dL (60-115)
[2021-12-04 20:27] LABS: Glucose, Whole Blood 199 mg/dL (60-115)
[2021-12-04] MEDS: Atorvastatin Calcium 20 MG TABLET PO (21:34)
[2021-12-04] MEDS: Bisoprolol Fumarate 5 MG TABLET PO (21:34)
[2021-12-04] MEDS: polyethylene glycoL 3350 17 GM POWD.PACK PO (21:35)
[2021-12-05 04:00] VITALS: BP 100/52; PULSE 52; RESP 18; TEMP 36.3; O2SAT 95
[2021-12-05] MEDS: Omeprazole 20 MG CAPSULE.DR PO (05:20)
[2021-12-05 07:15] VITALS: BP 108/60; PULSE 57; RESP 20; TEMP 36.5; O2SAT 96
[2021-12-05 07:16] LABS: Glucose, Whole Blood 144 mg/dL (60-115)
[2021-12-05 07:43] LABS: Anion Gap 13 (12-20); Blood Urea Nitrogen 19 mg/dL (9-16); Calcium 9.2 mg/dL (8.4-10.2); Carbon Dioxide 34 mmol/L (22-29); Chloride 95 mmol/L (96-108); Creatinine Clr Calc Pharmacy 82.7; Estimated Glomerular Filt Rate > 60; Glucose Random 145 mg/dL (60-115); Potassium 4.3 mmol/L (3.3-5.1); Sodium 138 mmol/L (135-145)
[2021-12-05 07:53] LABS: B Type Natriuretic Peptide 377 pg/mL (<100)
[2021-12-05] MEDS: Cholecalciferol (Vitamin D3) 25 MCG TABLET PO (08:06)
[2021-12-05] MEDS: methIMAzole 5 MG TABLET 2.5 MG PO (08:06)
[2021-12-05] MEDS: Docusate Sodium 100 MG CAPSULE PO (08:06)
[2021-12-05] MEDS: Isosorbide Mononitrate 60 MG TAB.ER.24H PO (08:06)
[2021-12-05] MEDS: Apixaban 5 MG TABLET PO (08:06)
[2021-12-05] MEDS: Clopidogrel Bisulfate 75 MG TABLET PO (08:06)
[2021-12-05] MEDS: Doxycycline Hyclate 100 MG in 0.9 % Sodium Chloride 250 ML 166.67 MG IV (08:06)
[2021-12-05] MEDS: Furosemide 40 MG/4 ML VIAL 80 MG IVPUSH (08:07)
[2021-12-05] MEDS: Nystatin Powder 15 GM BOTTLE 1 APPL TOPICAL (08:07)
[2021-12-05] MEDS: polyethylene glycoL 3350 17 GM POWD.PACK PO (08:07)
--- NOTE | 2021-12-05 08:59 | P.DS_ITS ---
DS: Providers Provider Date of Service: 01/05/22 Date of admission: 11/29/21 22:42 Primary care physician: Boubacar Way MD Consults: 11/29/21 22:38 Consult to Cardiology Routine Consulting Provider: Leon Mercer Reason for consultation: CHF Has provider been notified: No 12/02/21 07:54 Consult to Gastroenterology Routine Consulting Provider: De Werner Reason for consultation: coffee ground emesis Has provider been notified: No 12/03/21 09:01 Consult to Infectious Diseases Routine Consulting Provider: Blank Landin Reason for consultation: abdominal wall and scrotal celluitis Has provider been notified: No DS: Diagnosis Discharge Diagnosis (1) Scrotal swelling: Status: Acute (2) Cellulitis: Status: Acute DS: Summary Hospital Course Hospital Course: Chief Complaint: leg swelling Luxembourger-speaking, 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 Patient reports that his symptoms started gradually about a week ago has worsened.? He went to his PCP and his PCP sent into the hospital today.? Patient reports chronic wounds in his left lower extremity but noticed increased swelling in his scrotum, pain on urination, and itchiness around that area.? Patient denies having any dysuria or urgency and no frequency.? He reports compliance with his torsemide.? He also has painful skin on his abdomen, warm and red.? Patient denies any chest pain, no shortness of breath, no abdominal pain nausea or vomiting, no diarrhea or constipation, no headache or change in vision.? On arrival to the ED patient found to have no significant abnormal vitals Labs are significant for WBC count of 8.6, hemoglobin of 12.8 with hematocrit 41.2, INR of 1.5, BNP of 807, initial troponin of 29.7 increased to 31.7, UA negative for any infection, Scrotum ultrasound showed significant soft tissue thickening of the left inguinal and left scrotal region correlate clinically for sign of infection including cellulitis, Given degree of cellulitis, as well as CHF, I anticipate a medically necessary more than 2 midnight inpatient admission for treatment and monitoring response.? This cannot be done in a less acute setting as he will do poorly as an outpatient given requirement for IV Lasix and IV antibiotics Hospital course: \ 1. acute on chronic CHF exacerbation with low EF and right-sided heart failure, EF 30 to 35. Treated with IV Lasix under the guidance of cardiology over better and will transition back to oral Torsemide at discharge. He is negative nearly 6 liters, and BNP has come down from 807 to 378. 2. cellulitis, abdominal wall area, going to groin, with fungal element. Treated with IV Doxy and topical Nystatin. ID recommend 10 days of Doxycyline, will trat for an additional 4 dasy at discharge. ? ? continue Doxy, add Nystatin powerder 4. CAD status post CABG ? AVR and stent placement -? was on Eliquis and Plavix, being followed by Dr. Smith ( cardiologists in [place]) currently on hold due to coffee-ground emesis, patient also informed about epistaxis likely emesis related to swallowing blood ??seen by GI: no recurrent episodes of coffee-ground emesis, hematocrit is stable, will resume Eliquis and Plavix. ?on omeprazole 5. diabetes,? blood sugars stable, continue diabetic diet , Lantus and insulin sliding scale - hold metformin ? 6.Graves disease - continue methimazole 7. hypertension -? on low-dose beta-blockers and lisinopril for neurohormonal modulation. Time Spent with Patient Time attestation: Total time spent providing and/or coordinating discharge services: Discharge coordination time: Greater than 30 minutes Quality: Stroke Does the patient have a stroke diagnosis?: No Physical Exam Vital Signs: Vital Signs: Last Vital Signs Temp 97.7 F 12/05/21 07:15 Pulse 57 12/05/21 07:15 Resp 20 12/05/21 07:15 BP 108/60 12/05/21 07:15 Pulse Ox 96 12/05/21 07:15 BMI result Body Mass Index 34.7 DS: Data Data Completed and Pending Labs on day of discharge: Laboratory Results - last 24 hr 12/04/21 12/04/21 12/04/21 11:07 16:15 20:22 Sodium Potassium Chloride Carbon Dioxide Anion Gap BUN Creatinine Estim Creat Clear Calc Estimated GFR POC Glucose 199 H 197 H 199 H Random Glucose Calcium B-Natriuretic Peptide 0312/05/21 12/05/21 06:24 06:24 07:11 Sodium 138 Potassium 4.3 Chloride 95 L Carbon Dioxide 34 H Anion Gap 13 BUN 19 H Creatinine 0.79 Estim Creat Clear Calc 82.7 Estimated GFR > 60 POC Glucose 144 H Random Glucose 145 H Calcium 9.2 B-Natriuretic Peptide 377 H Discharge Plan Discharge Anticipated Discharge Date/Time: 12/05/21 08:56 Patient Disposition: Home Health Service Discharge Diagnosis: Acute on chronic heart failure, cellulitis of lower abdomen Referrals: [facility] [Other] - 1 Week Name,MD Boubacar [Primary Care Provider] - 1 Week Discharge Medications: New doxycycline hyclate 100 mg tablet 100 mg PO BID 4 Days Qty: 8 0RF Continued methimazole 5 mg tablet 2.5 mg PO DAILY 30 Days Qty: 15 6RF Rx Instructions: Dose increased cholecalciferol (vitamin D3) 25 mcg (1,000 unit) tablet 25 mcg PO QAM Qty: 90 1RF clopidogrel 75 mg tablet 75 mg PO DAILY 0RF isosorbide mononitrate 60 mg tablet extended release 24 hr 60 mg PO QAM 0RF acetaminophen 650 mg tablet extended release 1,300 mg PO Q8H PRN (Reason: Mild Pain (Scale Score 1-4)) 0RF apixaban 5 mg tablet 5 mg PO BID 0RF (DME) lancets 33 gauge misc See Rx Instructions ea .ROUTE .MEDSUPPLY Qty: 100 0RF Rx Instructions: As directed (DME) blood-glucose meter Kit See Rx Instructions ea .ROUTE DIRECTED Qty: 1 0RF Rx Instructions: As directed docusate sodium 100 mg capsule 100 mg PO BID 0RF metformin 500 mg tablet extended release 24 hr 500 mg PO DAILY@1700 0RF rosuvastatin 40 mg tablet 40 mg PO BEDTIME 0RF (DME) blood sugar diagnostic Strip See Rx Instructions ea Not Applicable TID Qty: 10 0RF Rx Instructions: As directed (DME) pen needle, diabetic 32 gauge x 5/32 needle See Rx Instructions ea .ROUTE .MEDSUPPLY Qty: 50 0RF Rx Instructions: As directed bisoprolol fumarate 5 mg tablet 5 mg PO BEDTIME 0RF lisinopril 2.5 mg tablet 2.5 mg PO QAM 0RF insulin glargine 100 unit/mL (3 mL) insulin pen 20 unit subcut BEDTIME 0RF Changed torsemide 20 mg tablet 40 mg PO BID Qty: 60 0RF Discontinued torsemide 20 mg tablet 20 mg PO DAILY@1200 0RF Discharge Orders: Discharge Order (Routine); Ordered 12/05/21 Ordered By: Bar Juarez Diet: advance to usual diet Activity on Discharge: As tolerated Stand Alone Forms: Patient Portal Discharge page Care Plan Goals: prevent rehospitalization for heart faiure Health Concerns: Chronic heart failure, celluliis Plan of Treatment: Take Doxycyline for cellulitis, continue taking all your usual medications and follow up with your Docotor in a week Torsemide has been changed to 40 mg twice daily Assessment: As above Discharge Date/Time: 12/05/21 15:16
--- NOTE | 2021-12-05 10:35 | PM.PNCARD ---
Subjective Subjective Date of Service: 12/05/21 Principal diagnosis: CHF, cmp Interval history: He states that he is generally getting better. Shortness of breath is improved. He still has the leg swelling. No angina. No overnight cardiac events of concern. Review of Systems Review of Systems Yes all other systems are reviewed and are negative Constitutional: Reports as per HPI Eyes: Reports as per HPI Reports as per HPI Cardiovascular: Reports as per HPI, Denies acrocyanosis, Denies cool extremities, Denies chest pain, Reports leg edema, Denies lightheadedness, Denies palpitations and Denies dyspnea Respiratory: Reports as per HPI, Reports no additional respiratory complaints and Denies dyspnea Gastrointestinal: Reports as per HPI and Reports no additional gastrointestinal complaints Genitourinary: Reports no additional male genitourinary complaints and Reports as per HPI Musculoskeletal: Reports no additional musculoskeletal complaints and Reports as per HPI Skin/Breast: Reports system reviewed and no additional complaints, except as docu Reports system reviewed and no additional complaints, except as documented and Reports as per HPI Psychiatric: Reports no additional psychiatric complaints and Reports as per HPI Endocrine: Reports no additional endocrine complaints, Reports as per HPI and Denies palpitations Hematologic/Lymphatic: Reports no additional hematologic/lymphatic complaints and Reports as per HPI Allergic/Immunologic: Reports no additional allergic/immunologic complaints and Reports as per HPI Physical Exam Vital Signs: Last Vital Signs Temp 97.7 F 12/05/21 07:15 Pulse 57 12/05/21 07:15 Resp 20 12/05/21 07:15 BP 108/60 12/05/21 07:15 Pulse Ox 96 12/05/21 07:15 BMI result Body Mass Index 34.7 Const General: comfortable HEENT Other: Unremarkable Head: Yes normal to inspection Ears: external ears normal General nose exam: Normal external nose present Face and sinus: Yes normal facial exam Mouth: oropharynx normal Neck Neck: Yes normal visual inspection Chest Chest palpation & inspection: normal inspection of the chest Resp Auscultation: clear to auscultation bilaterally Cardio Palpation: normal PMI Heart sounds: S1 normal heart sound present, S2 normal heart sound present, no gallops, Murmur heart sound present (2/6 BONNIE aortic area) and no rubs GI Palpation (GI): Soft to palpation Back/Spine/Pelvis Other: unremarkable Skin General skin exam: no rashes or lesions noted Neuro Cognition (Neuro): normal cognition Extrem General: Yes normal to inspection Psych Mental Status: mental status grossly normal Objective Labs and Meds Result diagrams: 12/02/21 07:25 12/05/21 06:24 Lab results: Laboratory Results - last 24 hr 12/04/21 12/04/21 12/04/21 11:07 16:15 20:22 Sodium Potassium Chloride Carbon Dioxide Anion Gap BUN Creatinine Estim Creat Clear Calc Estimated GFR POC Glucose 199 H 197 H 199 H Random Glucose Calcium B-Natriuretic Peptide 12/05/21 12/05/21 12/05/21 06:24 06:24 07:11 Sodium 138 Potassium 4.3 Chloride 95 L Carbon Dioxide 34 H Anion Gap 13 BUN 19 H Creatinine 0.79 Estim Creat Clear Calc 82.7 Estimated GFR > 60 POC Glucose 144 H Random Glucose 145 H Calcium 9.2 B-Natriuretic Peptide 377 H Progress Note: A&P Assessment and plan (1) Acute on chronic systolic and diastolic heart failure, NYHA class 3: Status: Acute (2) Pulmonary hypertension: Status: Acute (3) Acute right ventricular heart failure: Status: Acute (4) S/P AVR: Status: Acute (5) Hx of coronary artery bypass graft: Status: Acute Plan Recent echocardiogram reviewed. LVEF was 30-35%. There is restrictive filling pattern. Suspected normally function bioprosthetic valve. Moderate mitral annular calcification. Severe pulmonary hypertension. EKG with sinus rhythm; LVH; PVC. High sensitivity troponins are on the upper end of normal but with still within range. Initial cardiac BNP was 107 but then improved to 378. [facility] [place] was [place]. Multiple cardiac issues listed include atrial fibrillation, significant CAD including previous PCI to left main/circumflex; chronic heart failure, severe status post TAVR; ischemic cardiomyopathy, history of CABG, diabetes, ventricular fibrillation status post ICD firing in 2017. Overall, extensive cardiac comorbidities but overall, seems to be slowly progressing. Based on input/output charting, he is -5.5 L. With regard to diuretic regimen, we can increase the home dose of torsemide. Otherwise, on bisoprolol/lisinopril. No changes with regard to these. He is also maintained on nitrates, Plavix and no changes with them either. May continue statins too. Can follow-up with Dr. Smith from [facility] post discharge. Discussed with hospitalist service. Fall Risk Details Current Medications: Current Medications Acetaminophen (Acetaminophen 325 Mg Tablet) 650 mg PO Q6H PRN PRN Reason: Pain, Mild (Pain Scale 1-3) Last Admin: 11/30/21 21:36 Dose: 650 mg Documented by: Apixaban (Apixaban 5 Mg Tablet) 5 mg PO BID [facility] Last Admin: 12/05/21 08:06 Dose: 5 mg Documented by: Atorvastatin Calcium (Atorvastatin Calcium 20 Mg Tablet) 20 mg PO BEDTIME [facility] Last Admin: 12/04/21 21:34 Dose: 20 mg Documented by: Bisoprolol Fumarate (Bisoprolol Fumarate 5 Mg Tablet) 5 mg PO BEDTIME [facility] Last Admin: 12/04/21 21:34 Dose: 5 mg Documented by: Clopidogrel Bisulfate (Clopidogrel Bisulfate 75 Mg Tablet) 75 mg PO DAILY [facility] Last Admin: 12/05/21 08:06 Dose: 75 mg Documented by: Dextrose (Dextrose 50 % 25 Gm/50 Ml Vial) 25 gm IVPUSH Q15M PRN; Protocol PRN Reason: per Hypoglycemia Standing Ord. Docusate Sodium (Docusate Sodium 100 Mg Capsule) 100 mg PO BID [facility] Last Admin: 12/05/21 08:06 Dose: 100 mg Documented by: Furosemide (Furosemide 40 Mg/4 Ml Vial) 80 mg IVPUSH BID@0900,1800 [facility]; Protocol Last Admin: 12/05/21 08:07 Dose: 80 mg Documented by: Glucose (Glucose Gel 15 Gm Gel..Gram.) 15 gm PO Q15M PRN; Protocol PRN Reason: per Hypoglycemia Standing Ord. Doxycycline Hyclate 100 mg/ (Sodium Chloride) 250 mls @ 166.67 mls/hr IV Q12H [facility] Last Admin: 12/05/21 08:06 Dose: 166.67 mls/hr Documented by: Insulin Glargine (Insulin Glargine,Hum.Rec.Anlog 100 Unit/Ml 10 Ml Vial) 20 unit SUBCUT BEDTIME [facility] Insulin Human Lispro (Insulin Lispro 100 Unit/Ml 3 Ml Vial) 0 unit SUBCUT QIDACHS [facility]; Protocol Last Admin: 12/05/21 07:19 Dose: Not Given Documented by: Isosorbide Mononitrate (Isosorbide Mononitrate 60 Mg Tab.Er.24h) 60 mg PO DAILY [facility]; Protocol Last Admin: 12/05/21 08:06 Dose: 60 mg Documented by: Lisinopril (Lisinopril 2.5 Mg Tablet) 2.5 mg PO DAILY [facility]; Protocol Last Admin: 12/03/21 10:35 Dose: 2.5 mg Documented by: Methimazole (Methimazole 5 Mg Tablet) 2.5 mg PO DAILY [facility] Last Admin: 12/05/21 08:06 Dose: 2.5 mg Documented by: Morphine Sulfate (Morphine Sulfate 4 Mg/Ml Cartridge) 4 mg IVPUSH Q4H PRN; Protocol PRN Reason: Pain, Severe (Pain Scale 7-10) Last Admin: 12/02/21 06:27 Dose: 4 mg Documented by: Nystatin (Nystatin Powder 15 Gm Bottle) 1 appl TOPICAL BID [facility]; Protocol Last Admin: 12/05/21 08:07 Dose: 1 appl Documented by: Omeprazole (Omeprazole 20 Mg Capsule.Dr) 20 mg PO DAILY@0630 [facility] Last Admin: 12/05/21 05:20 Dose: 20 mg Documented by: Ondansetron HCl (Ondansetron Hcl 4 Mg/2 Ml Vial) 4 mg IVPUSH Q8H PRN PRN Reason: Nausea and Vomiting Last Admin: 12/01/21 06:34 Dose: 4 mg Documented by: Polyethylene Glycol (Polyethylene Glycol 3350 17 Gm Powd.Pack) 17 gm PO BID [facility] Last Admin: 12/05/21 08:07 Dose: 17 gm Documented by: Sodium Chloride (0.9 % Sodium Chloride Flush 3 Ml Syringe) 3 ml IVFLUSH QSHIFT [facility] Last Admin: 12/04/21 21:34 Dose: 3 ml Documented by: Vitamin D (Cholecalciferol (Vitamin D3) 25 Mcg Tablet) 25 mcg PO DAILY [facility] Last Admin: 12/05/21 08:06 Dose: 25 mcg Documented by: Time Spent With Patient Time: Total time spent is greater than 50% in coordination of care (as documented) at patient's floor/unit and/or counseling patient:45 Progress Note: Quality Stroke Does the patient have a stroke diagnosis?: No Procedures Date of Service Date of Service: 12/05/21
[2021-12-05 11:09] VITALS: BP 106/61; PULSE 59; RESP 20; TEMP 36.3; O2SAT 97
[2021-12-05 11:14] LABS: Glucose, Whole Blood 208 mg/dL (60-115)
[2021-12-05] MEDS: Insulin Lispro 100 UNIT/ML 3 ML VIAL SUBCUT (11:52)
--- NOTE | 2021-12-05 12:05 | MHC.CM.PN ---
pt dcd today with [facility] resumption [facility] services [facility] [place] notified of dc
--- NOTE | 2021-12-05 14:36 | MHC.CM.PN ---
pt going home by [facility]
== END 2021-12-05 15:16 | disposition home health service (06) | DRG 291 ==
LOC: HO.ED 20:11 → HO.EDOVER 23:35 → HO.IMC 11-30 16:00
PROVIDERS: Hospitalist; Internal Medicine; Nurse Practitioner Family; Admitting Provider Internal Medicine; Emergency Provider Emergency Medicine; PCP Internal Medicine Geriatric Medicine; Visit Provider Internal Medicine
DX: I11.0 Hypertensive heart disease with heart failure (principal); I50.21 Acute systolic (congestive) heart failure; I50.23 Acute on chronic systolic (congestive) heart failure; L03.311 Cellulitis of abdominal wall; E05.00 Thyrotoxicosis with diffuse goiter without thyrotoxic crisis or storm; E11.9 Type 2 diabetes mellitus without complications; N49.2 Inflammatory disorders of scrotum; I42.9 Cardiomyopathy, unspecified; I25.10 Atherosclerotic heart disease of native coronary artery without angina pectoris; Z95.1 Presence of aortocoronary bypass graft; I50.811 Acute right heart failure; B36.9 Superficial mycosis, unspecified; Z95.2 Presence of prosthetic heart valve; Z20.822 Contact with and (suspected) exposure to COVID-19; Z79.4 Long term (current) use of insulin; Z79.01 Long term (current) use of anticoagulants; Z79.02 Long term (current) use of antithrombotics/antiplatelets; Z79.84 Long term (current) use of oral hypoglycemic drugs; Z79.899 Other long term (current) drug therapy
CPT/HCPCS: 36415; 71045; 74176; 80048; 80076; 81001; 82271; 82947; 83605; 83690; 83735; 83880; 84484; 85025; 85027; 85610; 85730; 86850; 86900; 86901; 87040; 87635; 93005; 93306; 93975; 96365; 96367; 96375; 99285; J0696; J1940; J2270; J2405; Q9957